=== PATIENT | male | born 1960 | race Caucasian/White ===

== ENCOUNTER 2016-08-09 05:54 | Emergency (ER) | payer MEDICARE, MEDICAID ==
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
[2016-08-09 07:39] VITALS: BP 155/91
--- NOTE | 2016-08-09 13:52 | EKG REPORT ---
SEVERITY:- ABNORMAL ECG - SINUS RHYTHM RIGHT BUNDLE BRANCH BLOCK PROBABLE LEFT VENTRICULAR HYPERTROPHY : Confirmed by: Deepak Fang 09-Aug-2016 13:51:27
== END 2016-08-09 07:39 | disposition home or self-care (01) ==
LOC: ER 05:54
DX: H92.02 Otalgia, left ear (principal); H60.312 Diffuse otitis externa, left ear; E78.00 Pure hypercholesterolemia, unspecified; E10.9 Type 1 diabetes mellitus without complications; K21.9 Gastro-esophageal reflux disease without esophagitis; Z87.820 Personal history of traumatic brain injury; Z86.718 Personal history of other venous thrombosis and embolism; I25.2 Old myocardial infarction
CPT/HCPCS: 93005; 93010; 99283

== ENCOUNTER 2016-12-26 15:06 | Emergency (ER) | payer MEDICAID, MEDICARE ==
[2016-12-26 16:19] LABS: ABSOLUTE EOSINOPHILS # (AUTO) 0.2 10^3/uL (0.0-0.6); ABSOLUTE LYMPHOCYTES (AUTO) 2.6 10^3/uL (0.5-4.7); ABSOLUTE MONOCYTES (AUTO) 0.8 10^3/uL (0.1-1.4); ABSOLUTE NEUT (AUTO) 7.7 10^3/uL (1.7-8.2); BASOPHILS % (AUTO) 0.2 % (0-2); EOSINOPHILS % (AUTO) 1.4 % (0-6); HEMATOCRIT 43.3 % (37.9-51.0); HEMOGLOBIN 15.5 g/dL (13.5-17.0); HGB HCT DIFFERENCE 3.2; LYMPHOCYTES % (AUTO) 23.1 % (13-45); MEAN CORPUSCULAR HEMOGLOBIN 30.1 pg (27.0-33.4); MEAN CORPUSCULAR HGB CONC 35.9 g/dL (32.0-36.0); MEAN CORPUSCULAR VOLUME 84 fl (80-97); MONOCYTES % (AUTO) 7.1 % (3-13); RED BLOOD COUNT 5.16 10^6/uL (4.35-5.55); RED CELL DISTRIBUTION WIDTH 13.4 % (11.5-14.0); SEGMENTED NEUTROPHILS % (AUTO) 68.2 % (42-78); WHITE BLOOD COUNT 11.2 10^3/uL (4.0-10.5)
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
[2016-12-26 16:36] LABS: APPEARANCE,URINE CLEAR; BILIRUBIN,URINE NEGATIVE (NEGATIVE); GLUCOSE, URINE >=500 mg/dL (NEGATIVE); KETONES,URINE TRACE mg/dL (NEGATIVE); LEUKOCYTE ESTERASE,URINE NEGATIVE (NEGATIVE); NITRITE,URINE NEGATIVE (NEGATIVE); PROTEIN,URINE 30 mg/dL (NEGATIVE); UROBILINOGEN,URINE NEGATIVE mg/dL (<2.0)
[2016-12-26 16:43] LABS: ALANINE AMINOTRANSFERASE 57 U/L (21-72); ALBUMIN 4.6 g/dL (3.5-5.0); ALKALINE PHOSPHATASE 108 U/L (38-126); ANION GAP 15 (5-19); ASPARTATE AMINO TRANSFERASE 29 U/L (17-59); BILIRUBIN,DIRECT 0.5 mg/dL (0.0-0.4); BLOOD UREA NITROGEN 15 mg/dL (7-20); CALCIUM 10.1 mg/dL (8.4-10.2); CARBON DIOXIDE 23 mmol/L (22-30); CHLORIDE 99 mmol/L (98-107); GLUCOSE 363 mg/dL (75-110); LIPASE 134.2 U/L (23-300); POTASSIUM 4.4 mmol/L (3.6-5.0); SODIUM 137.2 mmol/L (137-145); TOTAL PROTEIN 7.8 g/dL (6.3-8.2)
[2016-12-26 16:44] LABS: ALCOHOL < 10 mg/dL (NONE DETECTED)
[2016-12-26 16:52] LABS: URINE BARBITURATES SCREEN NEGATIVE; URINE METHADONE SCREEN NEGATIVE; URINE OPIATES LOW NEGATIVE; URINE PHENCYCLIDINE SCREEN NEGATIVE
[2016-12-26 16:54] LABS: CREATINE KINASE MB 1.06 ng/mL (<4.55)
--- NOTE | 2016-12-26 16:55 | RADIOLOGY REPORT (SQ) ---
EXAM DESCRIPTION: CHEST PA/LAT COMPLETED DATE/TIME: 12/26/2016 4:45 pm REASON FOR STUDY: Cough with epigastric pain COMPARISON: May 2015 EXAM PARAMETERS: NUMBER OF VIEWS: two views TECHNIQUE: Digital Frontal and Lateral radiographic views of the chest acquired. RADIATION DOSE: NA LIMITATIONS: none FINDINGS: LUNGS AND PLEURA: No opacities, masses or pneumothorax. No pleural effusion. MEDIASTINUM AND HILAR STRUCTURES: No masses or contour abnormalities. HEART AND VASCULAR STRUCTURES: Heart normal size. No evidence for failure. BONES: No acute findings. HARDWARE: None in the chest. OTHER: No other significant finding. IMPRESSION: NO SIGNIFICANT RADIOGRAPHIC FINDING IN THE CHEST. TECHNICAL DOCUMENTATION: JOB ID: [id number] [email or web address]- All Rights Reserved
[2016-12-26 16:56] LABS: TROPONIN I < 0.012 ng/mL
[2016-12-26 19:02] VITALS: BP 136/85
--- NOTE | 2016-12-26 19:04 | RADIOLOGY REPORT (SQ) ---
EXAM DESCRIPTION: CT ABD/PELVIS WITH IV ORAL COMPLETED DATE/TIME: 12/26/2016 6:54 pm REASON FOR STUDY: Midepigastric pain with black stools COMPARISON: 04/20/2015 TECHNIQUE: CT scan of the abdomen and pelvis performed using helical scanning technique with dynamic intravenous contrast injection. No oral contrast. Images reviewed with lung, soft tissue, and bone windows. Reconstructed coronal and sagittal MPR images reviewed. Delayed images for evaluation of the urinary system also acquired. All images stored on PACS. All CT scanners at this facility use dose modulation, iterative reconstruction, and/or weight based d osing when appropriate to reduce radiation dose to as low as reasonably achievable (ALARA). [facility]: Dose Right [facility]: CareDose [facility]: Dose Right [facility]: Teradose 4D [facility]: [employer] CONTRAST TYPE AND DOSE: contrast/concentration: Isovue 370.00 mg/ml; Total Contrast Delivered: 99.0 ml; Total Saline Delivered: 63.0 ml RENAL FUNCTION: GFR > 60. RADIATION DOSE: Up-to-date CT equipment and radiation dose reduction techniques were employed. CTDIv ol: 10.8 - 12.5 mGy. DLP: 1176 mGy-cm.. LIMITATIONS: None. FINDINGS: LOWER CHEST: No significant findings. No nodules or infiltrates. LIVER: Diffuse fatty infiltration. No focal masses. SPLEEN: Normal size. No focal lesions. PANCREAS: No masses. No significant calcifications. No adjacent inflammation or peripancreatic fluid collections. Pancreatic duct not dilated. GALLBLADDER: Gallstones. No inflammatory changes to suggest cholecystitis. ADRENAL GLANDS: No significant masses or asymmetry. RIGHT KIDNEY AND URETER: No solid masses. No significant calcifications. No hydronephrosis or hyd roureter. LEFT KIDNEY AND URETER: No solid masses. No significant calcifications. No hydronephrosis or hydr oureter. AORTA AND VESSELS: No aneurysm. No dissection. Renal arteries, SMA, celiac without stenosis. RETROPERITONEUM: No retroperitoneal adenopathy, hemorrhage or masses. BOWEL AND PERITONEAL CAVITY: No masses or inflammatory changes. No free fluid or peritoneal masses. Diverticulosis. APPENDIX: Normal. PELVIS: No mass. No free fluid. Normal bladder. ABDOMINAL WALL: No masses. No hernias. BONES: No significant or acute findings. OTHER: No other significant finding. IMPRESSION: Fatty liver. Gallstones. TECHNICAL DOCUMENTATION: JOB ID: [id number] Quality ID # [id number]: Final reports with documentation of one or more dose reduction techniques (e.g., Au tomated exposure control, adjustment of the mA and/or kV according to patient size, use of iterative reconstruction technique) 2010 [employer]- All Rights Reserved
--- NOTE | 2016-12-26 21:20 | EKG REPORT ---
SEVERITY:- ABNORMAL ECG - SINUS TACHYCARDIA RIGHT BUNDLE BRANCH BLOCK : Confirmed by: Annie Bernstein MD 26-Dec-2016 21:19:45
== END 2016-12-26 19:33 | disposition home or self-care (01) ==
LOC: ER 15:06
DX: K80.20 Calculus of gallbladder without cholecystitis without obstruction (principal); K76.0 Fatty (change of) liver, not elsewhere classified; R07.89 Other chest pain; R10.13 Epigastric pain; F17.200 Nicotine dependence, unspecified, uncomplicated; I25.2 Old myocardial infarction; I10 Essential (primary) hypertension; J44.9 Chronic obstructive pulmonary disease, unspecified; E11.9 Type 2 diabetes mellitus without complications; I45.10 Unspecified right bundle-branch block; R00.0 Tachycardia, unspecified; Z86.718 Personal history of other venous thrombosis and embolism
CPT/HCPCS: 36415; 71020; 74177; 80053; 80307; 81001; 82272; 82553; 83690; 84484; 85025; 93005; 93010; 99285

== ENCOUNTER 2017-07-25 09:50 | Emergency (ER) | payer MEDICARE, MEDICAID ==
[2017-07-25] MEDS ORDERED: KETOROLAC TROMETHAMINE INJ/PF 30 MG/1 ML SDV IM ONE (11:09)
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
--- NOTE | 2017-07-25 12:04 | RADIOLOGY REPORT (SQ) ---
EXAM DESCRIPTION: CT LUMBAR SPINE WITHOUT COMPLETED DATE/TIME: 07/25/2017 11:23 am REASON FOR STUDY: BACK PAIN RADIATING DOWN BOTH LEGS COMPARISON: None. TECHNIQUE: Axial images acquired through the lumbar spine without intravenous contrast. Images revi ewed with lung, soft tissue and bone windows. Reconstructed coronal and sagittal MPR images reviewe d. All images stored on PACS. All CT scanners at this facility use dose modulation, iterative reconstruction, and/or weight based d osing when appropriate to reduce radiation dose to as low as reasonably achievable (ALARA). [facility]: Dose Right [facility]: CareDose [facility]: Dose Right [facility]: Teradose 4D [facility]: [employer] RADIATION DOSE: 15.55 mGy mGy. LIMITATIONS: None. FINDINGS: SEGMENTATION: Normal. No transitional anatomy. ALIGNMENT: Grade 1 anterolisthesis of L4 on L5 which appears to be due to degenerative changes involv ing the facet joints. VERTEBRAL BODIES: No fractures. No dislocation. No acute findings. DISCS: Mild disc space loss at L1-2, L4-5 and L5-S1. L1-L2: No significant protrusions. No significant stenosis or foraminal narrowing. L2-L3: No significant protrusions. No significant stenosis or foraminal narrowing. L3-L4: Mild generalized disc bulging and mild degenerative changes involving facet joints. No signif icant protrusions. No significant stenosis. L4-L5: Small broad-based disc extrusion. Severe degenerative changes involving the facet joints with ligamentous and facet hypertrophy. Mild spinal stenosis. Mild lateral recess stenosis bilaterally. Mild right neural foraminal narrowing. L5-S1: Mild generalized disc bulging with small left paracentral disc extrusion which probably imping es on the left S1 nerve root. Severe degenerative changes involving the left facet joint with mild c hanges on the right. LOWER THORACIC SPINE: Severe disc space loss at T10-T11 and T11-T12 with mild disc space loss at T12 -L1. No spinal stenosis or foraminal narrowing. PEDICLES, TRANSVERSE PROCESSES: No fractures. No dislocation. No acute findings. FACETS, POSTERIOR ELEMENTS: Degenerative changes as described above. HARDWARE: None in the spine. VISUALIZED RIBS: No fractures. SOFT TISSUES: No significant or acute finding in adjacent soft tissues. OTHER: No other significant finding. IMPRESSION: 1. Small left paracentral disc extrusion at L5-S1 which probably impinges on the left S 1 nerve root. 2. Mild spinal stenosis, mild lateral recess stenosis and mild right neural foraminal narrowing at L 4-5 related to grade 1 anterolisthesis and disc extrusion with ligamentous and facet hypertrophy. TECHNICAL DOCUMENTATION: JOB ID: [id number] Quality ID # [id number]: Final reports with documentation of one or more dose reduction techniques (e.g., Au tomated exposure control, adjustment of the mA and/or kV according to patient size, use of iterative reconstruction technique) 2010 [employer]- All Rights Reserved Reading location - IP/workstation name: [email or web address]
[2017-07-25 12:31] VITALS: BP 179/85
== END 2017-07-25 12:30 | disposition home or self-care (01) ==
LOC: ER 09:50
DX: M54.16 Radiculopathy, lumbar region (principal); M79.604 Pain in right leg; M79.605 Pain in left leg; M54.9 Dorsalgia, unspecified; M54.5 Low back pain; G89.29 Other chronic pain; F17.200 Nicotine dependence, unspecified, uncomplicated; I10 Essential (primary) hypertension; J44.9 Chronic obstructive pulmonary disease, unspecified; E11.9 Type 2 diabetes mellitus without complications
CPT/HCPCS: 99283; 96372; 72131; J1885

== ENCOUNTER 2017-10-24 14:53 | Emergency (ER) | payer MEDICARE, MEDICAID ==
[2017-10-24 15:04] VITALS: BP 150/86
== END 2017-10-24 15:52 | disposition left against medical advice (07) ==
LOC: ER 14:53
DX: Z53.21 Procedure and treatment not carried out due to patient leaving prior to being seen by health care provider (principal)

== ENCOUNTER 2017-11-08 16:17 | Emergency (ER) | payer MEDICARE, MEDICAID ==
[2017-11-08] MEDS ORDERED: ASPIRIN 325 MG TABLET PO ONE (17:13)
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
[2017-11-08 18:00] LABS: ABSOLUTE BASOPHILS # (AUTO) 0.1 10^3/uL (0.0-0.2); ABSOLUTE EOSINOPHILS # (AUTO) 0.3 10^3/uL (0.0-0.6); ABSOLUTE LYMPHOCYTES (AUTO) 2.1 10^3/uL (0.5-4.7); ABSOLUTE MONOCYTES (AUTO) 0.8 10^3/uL (0.1-1.4); ABSOLUTE NEUT (AUTO) 8.7 10^3/uL (1.7-8.2); BASOPHILS % (AUTO) 1.1 % (0-2); EOSINOPHILS % (AUTO) 2.9 % (0-6); HEMATOCRIT 43.4 % (37.9-51.0); HEMOGLOBIN 15.3 g/dL (13.5-17.0); MEAN CORPUSCULAR HEMOGLOBIN 30.8 pg (27.0-33.4); MEAN CORPUSCULAR HGB CONC 35.1 g/dL (32.0-36.0); MEAN CORPUSCULAR VOLUME 88 fl (80-97); PLATELET COUNT 180 10^3/uL (150-450); RED BLOOD COUNT 4.95 10^6/uL (4.35-5.55); RED CELL DISTRIBUTION WIDTH 13.7 % (11.5-14.0); TOTAL CELLS COUNTED % (AUTO) 100 %; WHITE BLOOD COUNT 12.1 10^3/uL (4.0-10.5)
--- NOTE | 2017-11-08 18:09 | RADIOLOGY REPORT (SQ) ---
EXAM DESCRIPTION: CHEST 2 VIEWS COMPLETED DATE/TIME: 11/08/2017 5:59 pm REASON FOR STUDY: cp COMPARISON: 12/26/2016 EXAM PARAMETERS: NUMBER OF VIEWS: two views TECHNIQUE: Digital Frontal and Lateral radiographic views of the chest acquired. RADIATION DOSE: NA LIMITATIONS: none FINDINGS: LUNGS AND PLEURA: No acute opacities, masses or pneumothorax. No pleural effusion. MEDIASTINUM AND HILAR STRUCTURES: No masses or contour abnormalities. HEART AND VASCULAR STRUCTURES: Heart normal size. No evidence for failure. BONES: No acute findings. HARDWARE: None in the chest. OTHER: No other significant finding. IMPRESSION: NO ACUTE RADIOGRAPHIC FINDING IN THE CHEST. TECHNICAL DOCUMENTATION: JOB ID: [id number] [place]-72 2010 [employer]- All Rights Reserved Reading location - IP/workstation name: [email or web address]
[2017-11-08 18:29] LABS: ALANINE AMINOTRANSFERASE 24 U/L (21-72); ALBUMIN 4.7 g/dL (3.5-5.0); ALKALINE PHOSPHATASE 55 U/L (38-126); ANION GAP 16 (5-19); ASPARTATE AMINO TRANSFERASE 24 U/L (17-59); BILIRUBIN,DIRECT 0.3 mg/dL (0.0-0.4); BLOOD UREA NITROGEN 13 mg/dL (7-20); CALCIUM 10.1 mg/dL (8.4-10.2); CARBON DIOXIDE 24 mmol/L (22-30); CHLORIDE 105 mmol/L (98-107); CREATINE KINASE 55 U/L (55-170); GLUCOSE 123 mg/dL (75-110); POTASSIUM 4.4 mmol/L (3.6-5.0); SODIUM 144.5 mmol/L (137-145)
[2017-11-08 18:38] LABS: CREATINE KINASE MB 0.48 ng/mL (<4.55)
[2017-11-08 18:45] LABS: TROPONIN I < 0.012 ng/mL
[2017-11-08] MEDS ORDERED: METOCLOPRAMIDE HCL ORAL SOLN 10 MG/10 ML UDCUP PO ONE (20:51)
[2017-11-08] MEDS ORDERED: KETOROLAC TROMETHAMINE 60 MG/2 ML SDV IM ONE (20:51)
[2017-11-08] MEDS ORDERED: LIDOCAINE 5% (700 MG) TRANSDERMAL ADH..PATCH TP ONE (20:51)
[2017-11-08] MEDS ORDERED: LIDOCAINE 2% VISCOUS SOLN 20 ML UDCUP PO ONE (20:51)
[2017-11-08] MEDS ORDERED: MAG HYDROX/AL HYDROX/SIMETH SUSP 30 ML UDCUP PO ONE (20:51)
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
[2017-11-08 22:51] VITALS: BP 111/63
--- NOTE | 2017-11-09 00:07 | EKG REPORT ---
SEVERITY:- ABNORMAL ECG - SINUS RHYTHM RIGHT BUNDLE BRANCH BLOCK : Confirmed by: Annie Bernstein MD 09-Nov-2017 00:06:35
== END 2017-11-08 22:48 | disposition home or self-care (01) ==
LOC: ER 16:17
DX: R07.81 Pleurodynia (principal); I10 Essential (primary) hypertension; R19.7 Diarrhea, unspecified; R11.2 Nausea with vomiting, unspecified; J44.9 Chronic obstructive pulmonary disease, unspecified; F17.200 Nicotine dependence, unspecified, uncomplicated; R06.02 Shortness of breath; I45.10 Unspecified right bundle-branch block; Z86.718 Personal history of other venous thrombosis and embolism; Z88.8 Allergy status to other drugs, medicaments and biological substances
CPT/HCPCS: 93005; 99285; 96372; 36415; 82553; 82550; 85025; 80053; 84484; 85379; 71046; 93010; A9270 ×2; J1885; J3490

== ENCOUNTER 2017-12-14 20:03 | Emergency (ER) | payer MEDICARE, MEDICAID ==
[2017-12-14] MEDS ORDERED: IBUPROFEN 600 MG TABLET PO ONE (21:15)
[2017-12-14] MEDS ORDERED: CIPROFLOXACIN HCL/DEXAMETH OTIC DROP 7.5 ML AD ONE (21:15)
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
[2017-12-14 22:34] VITALS: BP 169/78
== END 2017-12-14 22:32 | disposition home or self-care (01) ==
LOC: ER 20:03
DX: H92.01 Otalgia, right ear (principal); F17.200 Nicotine dependence, unspecified, uncomplicated; I10 Essential (primary) hypertension; J44.9 Chronic obstructive pulmonary disease, unspecified; E11.9 Type 2 diabetes mellitus without complications
CPT/HCPCS: 99282; A9270; J3490

== ENCOUNTER 2017-12-28 20:19 | Emergency (ER) | payer MEDICARE, MEDICAID ==
[2017-12-28 21:38] LABS: ABSOLUTE BASOPHILS # (AUTO) 0.1 10^3/uL (0.0-0.2); ABSOLUTE EOSINOPHILS # (AUTO) 0.2 10^3/uL (0.0-0.6); ABSOLUTE LYMPHOCYTES (AUTO) 2.1 10^3/uL (0.5-4.7); ABSOLUTE MONOCYTES (AUTO) 0.7 10^3/uL (0.1-1.4); ABSOLUTE NEUT (AUTO) 7.6 10^3/uL (1.7-8.2); BASOPHILS % (AUTO) 0.8 % (0-2); EOSINOPHILS % (AUTO) 2.2 % (0-6); HEMATOCRIT 43.2 % (37.9-51.0); HEMOGLOBIN 15.4 g/dL (13.5-17.0); LYMPHOCYTES % (AUTO) 19.5 % (13-45); MEAN CORPUSCULAR HEMOGLOBIN 30.9 pg (27.0-33.4); MEAN CORPUSCULAR HGB CONC 35.7 g/dL (32.0-36.0); MEAN CORPUSCULAR VOLUME 87 fl (80-97); MONOCYTES % (AUTO) 6.7 % (3-13); PLATELET COUNT 167 10^3/uL (150-450); RED BLOOD COUNT 4.99 10^6/uL (4.35-5.55); RED CELL DISTRIBUTION WIDTH 13.3 % (11.5-14.0); SEGMENTED NEUTROPHILS % (AUTO) 70.8 % (42-78); TOTAL CELLS COUNTED % (AUTO) 100 %; WHITE BLOOD COUNT 10.8 10^3/uL (4.0-10.5)
[2017-12-28 21:43] LABS: ALANINE AMINOTRANSFERASE 31 U/L (21-72); ALBUMIN 4.5 g/dL (3.5-5.0); ALKALINE PHOSPHATASE 55 U/L (38-126); ANION GAP 12 (5-19); ASPARTATE AMINO TRANSFERASE 31 U/L (17-59); BILIRUBIN,DIRECT 0.6 mg/dL (0.0-0.4); BILIRUBIN,TOTAL 1.4 mg/dL (0.2-1.3); BLOOD UREA NITROGEN 18 mg/dL (7-20); CALCIUM 9.8 mg/dL (8.4-10.2); CARBON DIOXIDE 26 mmol/L (22-30); CHLORIDE 101 mmol/L (98-107); GLUCOSE 179 mg/dL (75-110); LIPASE 105.7 U/L (23-300); POTASSIUM 4.7 mmol/L (3.6-5.0); SODIUM 138.8 mmol/L (137-145); TOTAL PROTEIN 7.8 g/dL (6.3-8.2)
[2017-12-28] MEDS ORDERED: FAMOTIDINE 20 MG TABLET PO ONE (22:40)
[2017-12-28] MEDS ORDERED: METOCLOPRAMIDE HCL ORAL SOLN 10 MG/10 ML UDCUP PO ONE (22:40)
[2017-12-28] MEDS ORDERED: MAG HYDROX/AL HYDROX/SIMETH SUSP 30 ML UDCUP PO ONE (22:40)
[2017-12-28] MEDS ORDERED: LIDOCAINE 2% VISCOUS SOLN 20 ML UDCUP PO ONE (22:40)
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
--- NOTE | 2017-12-28 22:54 | RADIOLOGY REPORT (SQ) ---
US ABDOMEN LIMITED HISTORY: Upper abdominal pain. COMPARISON: None. TECHNIQUE: Grayscale and color Doppler imaging of the right upper quadrant was performed. FINDINGS: The liver measures 18 cm. Normal liver echogenicity. Status post cholecystectomy. Common bile duct measures 3 mm. No intrahepatic biliary ductal dilatation. The pancreas is not visualized due to overlying bowel gas. Right kidney measures 10 cm in length, without hydronephrosis. Visualized portions of the IVC and aorta are patent. IMPRESSION: Status post cholecystectomy. Mild hepatomegaly.
[2017-12-28 23:05] VITALS: BP 131/82
== END 2017-12-28 23:17 | disposition home or self-care (01) ==
LOC: ER 20:19
DX: K29.00 Acute gastritis without bleeding (principal); T47.1X6A Underdosing of other antacids and anti-gastric-secretion drugs, initial encounter; Z91.128 Patient's intentional underdosing of medication regimen for other reason; Z91.14 Patient's other noncompliance with medication regimen; R10.13 Epigastric pain; I10 Essential (primary) hypertension; E11.9 Type 2 diabetes mellitus without complications; J44.9 Chronic obstructive pulmonary disease, unspecified; F17.210 Nicotine dependence, cigarettes, uncomplicated; Z71.6 Tobacco abuse counseling; Z88.8 Allergy status to other drugs, medicaments and biological substances; Z90.49 Acquired absence of other specified parts of digestive tract; Z87.19 Personal history of other diseases of the digestive system
CPT/HCPCS: 99406; 99284; 36415; 83690; 85025; 80053; 76705; A9270 ×2; J3490

== ENCOUNTER 2018-02-20 22:46 | Emergency (ER) | payer MEDICARE, MEDICAID ==
[2018-02-20] MEDS ORDERED: NORMAL SALINE 1000 ML 500 ML IV ONE (22:57)
[2018-02-20] MEDS ORDERED: ONDANSETRON HCL INJ/PF 4 MG/2 ML SDV IV ONE (23:00)
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
[2018-02-20 23:07] LABS: VENOUS BLOOD BASE EXCESS 5.8 mmol/L; VENOUS BLOOD HCO3 30.8 mmol/L (20-32); VENOUS BLOOD PCO2 45.6 mmHg (35-63); VENOUS BLOOD PH 7.45 (7.30-7.42)
[2018-02-20 23:20] LABS: ALANINE AMINOTRANSFERASE 34 U/L (21-72); ALBUMIN 4.4 g/dL (3.5-5.0); ALKALINE PHOSPHATASE 65 U/L (38-126); ANION GAP 11 (5-19); ASPARTATE AMINO TRANSFERASE 25 U/L (17-59); BILIRUBIN,DIRECT 0.2 mg/dL (0.0-0.4); BILIRUBIN,TOTAL 0.6 mg/dL (0.2-1.3); BLOOD UREA NITROGEN 19 mg/dL (7-20); CALCIUM 10.3 mg/dL (8.4-10.2); CARBON DIOXIDE 32 mmol/L (22-30); CHLORIDE 99 mmol/L (98-107); GLUCOSE 232 mg/dL (75-110); LIPASE 161.7 U/L (23-300); POTASSIUM 4.7 mmol/L (3.6-5.0); SODIUM 141.7 mmol/L (137-145); TOTAL PROTEIN 7.4 g/dL (6.3-8.2)
[2018-02-20 23:26] LABS: ABSOLUTE BASOPHILS # (AUTO) 0.1 10^3/uL (0.0-0.2); ABSOLUTE EOSINOPHILS # (AUTO) 0.3 10^3/uL (0.0-0.6); ABSOLUTE LYMPHOCYTES (AUTO) 3.2 10^3/uL (0.5-4.7); ABSOLUTE MONOCYTES (AUTO) 0.9 10^3/uL (0.1-1.4); ABSOLUTE NEUT (AUTO) 7.1 10^3/uL (1.7-8.2); BASOPHILS % (AUTO) 0.9 % (0-2); EOSINOPHILS % (AUTO) 2.2 % (0-6); HEMATOCRIT 41.2 % (37.9-51.0); HEMOGLOBIN 14.6 g/dL (13.5-17.0); LYMPHOCYTES % (AUTO) 27.6 % (13-45); MEAN CORPUSCULAR HEMOGLOBIN 30.5 pg (27.0-33.4); MEAN CORPUSCULAR HGB CONC 35.6 g/dL (32.0-36.0); MEAN CORPUSCULAR VOLUME 86 fl (80-97); MONOCYTES % (AUTO) 7.6 % (3-13); PLATELET COUNT 186 10^3/uL (150-450); RED BLOOD COUNT 4.81 10^6/uL (4.35-5.55); RED CELL DISTRIBUTION WIDTH 13.3 % (11.5-14.0); SEGMENTED NEUTROPHILS % (AUTO) 61.7 % (42-78); TOTAL CELLS COUNTED % (AUTO) 100 %; WHITE BLOOD COUNT 11.4 10^3/uL (4.0-10.5)
--- NOTE | 2018-02-20 23:47 | RADIOLOGY REPORT (SQ) ---
XR CHEST 1 VIEW HISTORY: Chest pain. Vomiting. COMPARISON: 12/26/2016 FINDINGS: Cardiomediastinal silhouette is unremarkable. The lungs are clear. No pleural effusion or pneumothorax is identified. No acute osseous findings. IMPRESSION: No acute cardiopulmonary abnormality.
[2018-02-21] MEDS ORDERED: FAMOTIDINE 20 MG TABLET PO ONE
[2018-02-21] MEDS ORDERED: PROMETHAZINE HCL 25 MG TABLET PO ONE
[2018-02-21] MEDS ORDERED: SUCRALFATE 1 GM TABLET PO ONE
[2018-02-21] MEDS ORDERED: HYDROCODONE/ACETAMINOPHEN 5-325 MG TABLET PO ONE (00:05)
[2018-02-21] MEDS ORDERED: NORMAL SALINE 1000 ML 500 ML IV ONE (00:46)
[2018-02-21 01:50] LABS: AMORPHOUS SEDIMENT,URINE TRACE /HPF; APPEARANCE,URINE CLOUDY; BILIRUBIN,URINE NEGATIVE (NEGATIVE); COLOR,URINE YELLOW; GLUCOSE, URINE >=500 mg/dL (NEGATIVE); KETONES,URINE TRACE mg/dL (NEGATIVE); LEUKOCYTE ESTERASE,URINE NEGATIVE (NEGATIVE); NITRITE,URINE NEGATIVE (NEGATIVE); PROTEIN,URINE NEGATIVE (NEGATIVE); URINE SPECIFIC GRAVITY 1.013; UROBILINOGEN,URINE NEGATIVE mg/dL (<2.0)
[2018-02-21] MEDS ORDERED: MORPHINE SULFATE 10 MG/ML INJ IV ONE (01:55)
[2018-02-21] MEDS ORDERED: DIAZEPAM 5 MG TABLET PO ONE (03:50)
[2018-02-21 05:10] VITALS: BP 124/83
--- NOTE | 2018-02-21 19:17 | EKG REPORT ---
SEVERITY:- ABNORMAL ECG - SINUS TACHYCARDIA RIGHT BUNDLE BRANCH BLOCK : Confirmed by: Annie Bernstein MD 21-Feb-2018 19:16:35
--- NOTE | 2018-02-21 19:17 | EKG REPORT ---
SEVERITY:- ABNORMAL ECG - SINUS RHYTHM RIGHT BUNDLE BRANCH BLOCK LEFT VENTRICULAR HYPERTROPHY : Confirmed by: Annie Bernstein MD 21-Feb-2018 19:16:31
== END 2018-02-21 05:09 | disposition home or self-care (01) ==
LOC: ER 22:46
DX: R10.12 Left upper quadrant pain (principal); E86.0 Dehydration; I10 Essential (primary) hypertension; I45.10 Unspecified right bundle-branch block; J44.9 Chronic obstructive pulmonary disease, unspecified; R06.02 Shortness of breath; R05 Cough; R00.0 Tachycardia, unspecified; R51 Headache; R68.83 Chills (without fever); R11.2 Nausea with vomiting, unspecified; F17.200 Nicotine dependence, unspecified, uncomplicated; E11.9 Type 2 diabetes mellitus without complications; Z79.4 Long term (current) use of insulin; Z88.8 Allergy status to other drugs, medicaments and biological substances
CPT/HCPCS: 93005; 99285; 96361; 96374; 96375; 36415; 83690; 85025; 80053; 81001; 84484; 82803; 71045; 93010; A9270 ×5; J2270; J2405; J7030 ×2

== ENCOUNTER 2018-03-04 12:36 | Emergency (ER) | payer MEDICARE, MEDICAID ==
[2018-03-04] MEDS ORDERED: CIPROFLOXACIN HCL/DEXAMETH OTIC DROP 7.5 ML AS ONE (14:32)
[2018-03-04] MEDS ORDERED: ACETAMINOPHEN 325 MG TABLET PO ONE (14:33)
[2018-03-04] MEDS ORDERED: KETOROLAC TROMETHAMINE 60 MG/2 ML SDV IM ONE (14:35)
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
[2018-03-04 15:47] VITALS: BP 140/88
== END 2018-03-04 15:46 | disposition home or self-care (01) ==
LOC: ER 12:36
DX: H60.502 Unspecified acute noninfective otitis externa, left ear (principal); H92.02 Otalgia, left ear; K04.7 Periapical abscess without sinus; R51 Headache; I10 Essential (primary) hypertension; E11.9 Type 2 diabetes mellitus without complications; J44.9 Chronic obstructive pulmonary disease, unspecified; F17.200 Nicotine dependence, unspecified, uncomplicated
CPT/HCPCS: 99282; A9270; J1885; J3490

== ENCOUNTER 2018-04-26 13:32 | Emergency (ER) | payer MEDICARE, MEDICAID ==
[2018-04-26] MEDS ORDERED: ACETAMINOPHEN 325 MG TABLET PO ONE (14:00)
[2018-04-26] MEDS ORDERED: DIPH/PERTUSS(ACELL)/TETANUS VAC/PF 0.5 ML SYR (>=10YO) IM ONE (14:00)
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
--- NOTE | 2018-04-26 14:48 | RADIOLOGY REPORT (SQ) ---
EXAM DESCRIPTION: CT HEAD WITHOUT COMPLETED DATE/TIME: 04/26/2018 2:38 pm REASON FOR STUDY: head injury, CEE COMPARISON: CT brain 10/11/2010, 07/15/2008, 05/24/2007 CT facial bones same day TECHNIQUE: Axial images acquired through the brain without intravenous contrast. Images reviewed wi th bone, brain and subdural windows. Additional sagittal and coronal reconstructions were generated. Images stored on PACS. All CT scanners at this facility use dose modulation, iterative reconstruction, and/or weight based d osing when appropriate to reduce radiation dose to as low as reasonably achievable (ALARA). [facility]: Dose Right [facility]: CareDose [facility]: Dose Right [facility]: Teradose 4D [facility]: [employer] RADIATION DOSE: CT Rad equipment meets quality standard of care and radiation dose reduction techniq ues were employed. CTDIvol: 53.2 mGy. DLP: 1044 mGy-cm. mGy. LIMITATIONS: None. FINDINGS: VENTRICLES: Normal size and contour. CEREBRUM: No masses. No hemorrhage. No midline shift. No evidence for acute infarction. Normal gra y/white matter differentiation. No areas of low density in the white matter. CEREBELLUM: No masses. No hemorrhage. No alteration of density. No evidence for acute infarction. EXTRAAXIAL SPACES: No fluid collections. No masses. ORBITS AND GLOBE: Acute left lateral orbital wall and orbital floor fracture with fluid in the left m axillary sinus. CALVARIUM: No fracture. PARANASAL SINUSES: No fluid or mucosal thickening. SOFT TISSUES: No mass or hematoma. OTHER: No other significant finding. IMPRESSION: No acute intracranial changes. Left-sided orbital floor and lateral orbital rim nondisplaced fractures. EVIDENCE OF ACUTE STROKE: NO. COMMENT: Quality ID # [id number]: Final reports with documentation of one or more dose reduction techniques (e.g., Automated exposure control, adjustment of the mA and/or kV according to patient size, use of iterative reconstruction technique) TECHNICAL DOCUMENTATION: JOB ID: [id number] [employer]- All Rights Reserved Reading location - IP/workstation name: [email or web address]
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
[2018-04-26] MEDS ORDERED: OXYCODONE HCL IR 5 MG TABLET PO ONE (14:53)
--- NOTE | 2018-04-26 14:54 | RADIOLOGY REPORT (SQ) ---
EXAM DESCRIPTION: CT CERVICAL SPINE WITHOUT COMPLETED DATE/TIME: 04/26/2018 2:38 pm REASON FOR STUDY: head injury, CEE COMPARISON: CT brain, CT facial bones same date TECHNIQUE: Axial images acquired through the cervical spine without intravenous contrast. Images re viewed with lung, soft tissue and bone windows. Reconstructed coronal and sagittal MPR images review ed. Images stored on PACS. All CT scanners at this facility use dose modulation, iterative reconstruction, and/or weight based d osing when appropriate to reduce radiation dose to as low as reasonably achievable (ALARA). [facility]: Dose Right [facility]: CareDose [facility]: Dose Right [facility]: Teradose 4D [facility]: [employer] RADIATION DOSE: CT Rad equipment meets quality standard of care and radiation dose reduction techniq ues were employed. CTDIvol: 18.2 mGy. DLP: 392 mGy-cm. mGy. LIMITATIONS: None. FINDINGS: ALIGNMENT: Anatomic. MINERALIZATION: Normal. VERTEBRAL BODIES: No fractures or dislocation. DISCS: Disc space loss of height throughout the cervical spine. No central stenosis. Mild to moderate bilateral foraminal narrowing at C3-4, C4-5, moderate to high-grade bilateral C5-6, moderate bilateral C6-7 foraminal narrowing. FACETS, LATERAL MASSES, POSTERIOR ELEMENTS: No fractures. No dislocation. No acute findings. HARDWARE: None in the spine. VISUALIZED RIBS: No fractures. LUNG APICES AND SOFT TISSUES: No significant or acute findings. OTHER: No other significant finding. IMPRESSION: No acute fracture or malalignment. TECHNICAL DOCUMENTATION: JOB ID: [id number] Quality ID # [id number]: Final reports with documentation of one or more dose reduction techniques (e.g., Au tomated exposure control, adjustment of the mA and/or kV according to patient size, use of iterative reconstruction technique) 2010 [employer]- All Rights Reserved Reading location - IP/workstation name: [email or web address]
[2018-04-26] MEDS ORDERED: AMOXICILLIN TRIHYDRATE 500 MG CAPSULE PO ONE (15:24)
[2018-04-26 15:49] VITALS: BP 136/92
== END 2018-04-26 15:49 | disposition home or self-care (01) ==
LOC: ER 13:32
DX: S02.40DA Maxillary fracture, left side, initial encounter for closed fracture (principal); S02.32XA Fracture of orbital floor, left side, initial encounter for closed fracture; W20.8XXA Other cause of strike by thrown, projected or falling object, initial encounter; Y93.H3 Activity, building and construction; R51 Headache; R11.0 Nausea; I10 Essential (primary) hypertension; J44.9 Chronic obstructive pulmonary disease, unspecified; E11.9 Type 2 diabetes mellitus without complications; F17.200 Nicotine dependence, unspecified, uncomplicated
CPT/HCPCS: 99284; 90471; 70450; 70486; 72125; 90715; A9270 ×3

== ENCOUNTER → 2018-05-19 | Outpatient (CLI) | payer MEDICARE, MEDICAID ==
[2018-05-20 15:42] LABS: ABSOLUTE BASOPHILS # (AUTO) 0.1 10^3/uL (0.0-0.2); ABSOLUTE EOSINOPHILS # (AUTO) 0.2 10^3/uL (0.0-0.6); ABSOLUTE LYMPHOCYTES (AUTO) 2.1 10^3/uL (0.5-4.7); ABSOLUTE MONOCYTES (AUTO) 0.7 10^3/uL (0.1-1.4); ABSOLUTE NEUT (AUTO) 8.4 10^3/uL (1.7-8.2); BASOPHILS % (AUTO) 0.7 % (0-2); EOSINOPHILS % (AUTO) 1.5 % (0-6); HEMATOCRIT 45.2 % (37.9-51.0); HEMOGLOBIN 15.8 g/dL (13.5-17.0); LYMPHOCYTES % (AUTO) 18.3 % (13-45); MEAN CORPUSCULAR HEMOGLOBIN 30.5 pg (27.0-33.4); MEAN CORPUSCULAR VOLUME 87 fl (80-97); MONOCYTES % (AUTO) 6.2 % (3-13); PLATELET COUNT 186 10^3/uL (150-450); RED BLOOD COUNT 5.18 10^6/uL (4.35-5.55); RED CELL DISTRIBUTION WIDTH 13.5 % (11.5-14.0); SEGMENTED NEUTROPHILS % (AUTO) 73.3 % (42-78); TOTAL CELLS COUNTED % (AUTO) 100 %; WHITE BLOOD COUNT 11.5 10^3/uL (4.0-10.5)
[2018-05-20 16:21] LABS: ERYTHROCYTE SEDIMENTATION RATE 17 mm/hr (0-20)
== END ==
LOC: OD 11:35
PROVIDERS: ATTEND Ophthalmology
DX: R51 Headache (principal)
CPT/HCPCS: 36415; 85025; 85652; 86140

== ENCOUNTER 2018-05-21 14:29 | Emergency (ER) | payer MEDICARE, MEDICAID ==
[2018-05-21] MEDS ORDERED: METOCLOPRAMIDE HCL INJ/PF 10 MG/2 ML SDV IV ONE (16:29)
[2018-05-21] MEDS ORDERED: DIPHENHYDRAMINE HCL 50 MG/ML VIAL IV ONE (16:29)
[2018-05-21] MEDS ORDERED: NORMAL SALINE 1000 ML 1,000 ML IV ONE (16:29)
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
[2018-05-21] MEDS ORDERED: HYDROCODONE/ACETAMINOPHEN 5-325 MG TABLET PO ONE (18:22)
--- NOTE | 2018-05-21 18:56 | RADIOLOGY REPORT (SQ) ---
EXAM DESCRIPTION: CHEST 2 VIEWS COMPLETED DATE/TIME: 05/21/2018 6:43 pm REASON FOR STUDY: cough COMPARISON: 02/20/2018 EXAM PARAMETERS: NUMBER OF VIEWS: two views TECHNIQUE: Digital Frontal and Lateral radiographic views of the chest acquired. RADIATION DOSE: NA LIMITATIONS: none FINDINGS: LUNGS AND PLEURA: No opacities, masses or pneumothorax. No pleural effusion. MEDIASTINUM AND HILAR STRUCTURES: No masses or contour abnormalities. HEART AND VASCULAR STRUCTURES: Heart normal size. No evidence for failure. BONES: No acute findings. HARDWARE: None in the chest. OTHER: No other significant finding. IMPRESSION: NO ACUTE RADIOGRAPHIC FINDING IN THE CHEST. TECHNICAL DOCUMENTATION: JOB ID: [id number] [employer]- All Rights Reserved Reading location - IP/workstation name: [email or web address]
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
[2018-05-21 20:13] VITALS: BP 149/85
== END 2018-05-21 20:13 | disposition home or self-care (01) ==
LOC: ER 14:29
DX: S02.40DD Maxillary fracture, left side, subsequent encounter for fracture with routine healing (principal); S02.32XD Fracture of orbital floor, left side, subsequent encounter for fracture with routine healing; Y00.XXXD Assault by blunt object, subsequent encounter; R51 Headache; R11.0 Nausea; J34.89 Other specified disorders of nose and nasal sinuses; M79.10 Myalgia, unspecified site; R05 Cough; I10 Essential (primary) hypertension; J44.9 Chronic obstructive pulmonary disease, unspecified; E11.9 Type 2 diabetes mellitus without complications; F17.200 Nicotine dependence, unspecified, uncomplicated; Z88.8 Allergy status to other drugs, medicaments and biological substances
CPT/HCPCS: 99284; 96361; 96374; 96375; 71046; J1200; J2765; J7030; A9270

== ENCOUNTER 2018-08-12 09:39 | Emergency (ER) | payer MEDICARE, MEDICAID ==
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
--- NOTE | 2018-08-12 10:31 | RADIOLOGY REPORT (SQ) ---
EXAM DESCRIPTION: HAND LEFT 3 VIEWS COMPLETED DATE/TIME: 08/12/2018 10:15 am REASON FOR STUDY: Pain swelling middle finger hand pain COMPARISON: None. EXAM PARAMETERS: NUMBER OF VIEWS: Three views. TECHNIQUE: AP, lateral and oblique radiographic images acquired of the left hand. LIMITATIONS: None. FINDINGS: MINERALIZATION: Normal. BONES: No acute fracture or dislocation. No worrisome bone lesions. JOINTS: Intact. SOFT TISSUES: Swelling distal 3rd phalanx. No foreign body. OTHER: No other significant finding. IMPRESSION: Soft tissue injury. TECHNICAL DOCUMENTATION: JOB ID: [id number] [employer]- All Rights Reserved Reading location - IP/workstation name: [email or web address]
[2018-08-12] MEDS ORDERED: LIDOCAINE 1% INJ-PF (10 MG/ML) 30 ML SDV ONE (13:58)
[2018-08-12] MEDS ORDERED: LIDOCAINE 1% INJ-PF (10 MG/ML) 30 ML SDV INJ ONE (13:58)
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
[2018-08-12 14:54] VITALS: BP 145/83
== END 2018-08-12 14:54 | disposition home or self-care (01) ==
LOC: ER 09:39
DX: L03.012 Cellulitis of left finger (principal); M79.642 Pain in left hand; F17.200 Nicotine dependence, unspecified, uncomplicated; E78.00 Pure hypercholesterolemia, unspecified; I10 Essential (primary) hypertension; E11.9 Type 2 diabetes mellitus without complications; Z90.49 Acquired absence of other specified parts of digestive tract; Z86.718 Personal history of other venous thrombosis and embolism; I25.2 Old myocardial infarction
CPT/HCPCS: 87070; 87077; 87186; 87205; 99283

== ENCOUNTER 2018-12-22 21:04 | Observation (INO) | payer MEDICARE, MEDICAID ==
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
--- NOTE | 2018-12-22 22:28 | EKG REPORT ---
SEVERITY:- ABNORMAL ECG - SINUS RHYTHM PROBABLE LEFT ATRIAL ABNORMALITY RIGHT BUNDLE BRANCH BLOCK : Confirmed by: Deepak Fang 22-Dec-2018 22:27:33
[2018-12-22 23:04] LABS: ABSOLUTE BASOPHILS # (AUTO) 0.1 10^3/uL (0.0-0.2); ABSOLUTE EOSINOPHILS # (AUTO) 0.2 10^3/uL (0.0-0.6); ABSOLUTE LYMPHOCYTES (AUTO) 2.4 10^3/uL (0.5-4.7); ABSOLUTE MONOCYTES (AUTO) 0.9 10^3/uL (0.1-1.4); BASOPHILS % (AUTO) 1.1 % (0-2); EOSINOPHILS % (AUTO) 1.8 % (0-6); HEMATOCRIT 37.9 % (37.9-51.0); HEMOGLOBIN 13.9 g/dL (13.5-17.0); LYMPHOCYTES % (AUTO) 25.2 % (13-45); MEAN CORPUSCULAR HEMOGLOBIN 31.2 pg (27.0-33.4); MEAN CORPUSCULAR HGB CONC 36.5 g/dL (32.0-36.0); MEAN CORPUSCULAR VOLUME 86 fl (80-97); PLATELET COUNT 166 10^3/uL (150-450); RED BLOOD COUNT 4.44 10^6/uL (4.35-5.55); RED CELL DISTRIBUTION WIDTH 13.2 % (11.5-14.0); SEGMENTED NEUTROPHILS % (AUTO) 62.9 % (42-78); TOTAL CELLS COUNTED % (AUTO) 100 %; WHITE BLOOD COUNT 9.5 10^3/uL (4.0-10.5)
[2018-12-22 23:20] LABS: ALBUMIN 4.2 g/dL (3.5-5.0); ALKALINE PHOSPHATASE 71 U/L (38-126); ANION GAP 11 (5-19); ASPARTATE AMINO TRANSFERASE 28 U/L (17-59); BILIRUBIN,DIRECT 0.2 mg/dL (0.0-0.4); BILIRUBIN,TOTAL 0.8 mg/dL (0.2-1.3); BLOOD UREA NITROGEN 17 mg/dL (7-20); CALCIUM 10.2 mg/dL (8.4-10.2); CARBON DIOXIDE 26 mmol/L (22-30); CHLORIDE 95 mmol/L (98-107); CREATINE KINASE 36 U/L (55-170); GLUCOSE 397 mg/dL (75-110); POTASSIUM 4.2 mmol/L (3.6-5.0); TOTAL PROTEIN 6.9 g/dL (6.3-8.2)
[2018-12-22 23:33] LABS: TROPONIN I < 0.012 ng/mL
[2018-12-22] MEDS ORDERED: MORPHINE SULFATE 10 MG/ML INJ IV ONE (23:50)
[2018-12-23] MEDS ORDERED: ONDANSETRON HCL INJ/PF 4 MG/2 ML SDV IV ONE
[2018-12-23] MEDS ORDERED: MORPHINE SULFATE 10 MG/ML INJ IV ONE ×2 (00:58→04:04)
--- NOTE | 2018-12-23 03:35 | RADIOLOGY REPORT (SQ) ---
EXAM DESCRIPTION: CT CHEST ANGIOGRAPHY WITHOUT THEN WITH IV CONTRAST COMPLETED DATE/TME: 12/23/2018 02:12 CLINICAL HISTORY: 58 years Male, Chest pain Comparison: CR, same day. Technique: IV contrast. Coronal and sagittal reformat. 3d reconstruction. This exam was performed according to our departmental dose-optimization program, which includes automated exposure control, adjustment of the mA and/or kV according to patient size and/or use of iterative reconstruction technique.[facility]: Dose Right [facility]: CareDose [facility]: Dose Right [facility]: Teradose 4D [facility]: Smart [employer] LIMITATIONS: None Findings: No pulmonary embolus. No right ventricular strain. Old granulomatous disease. Atherosclerotic vascular disease. Mild/moderate anterior vertebral wedging of multiple midthoracic vertebral bodies with exaggerated kyphosis. Inferior neck, axillae, mediastinum, airway, lymphatics, heart, vasculature, upper abdomen, and musculoskeleton appear otherwise unremarkable. Impression: No pulmonary embolus. No acute cardiopulmonary findings.
[2018-12-23] MEDS ORDERED: MAG HYDROX/AL HYDROX/SIMETH SUSP 30 ML UDCUP PO PRN (05:02)
[2018-12-23] MEDS ORDERED: ACETAMINOPHEN 325 MG TABLET PO PRN (05:02)
[2018-12-23] MEDS ORDERED: MORPHINE SULFATE 10 MG/ML INJ IV PRN ×2 (05:02→05:18)
[2018-12-23] MEDS ORDERED: LEVALBUTEROL HCL NEB 0.63 MG/3 ML AMPUL NEB PRN (05:02)
[2018-12-23] MEDS ORDERED: MAGNESIUM HYDROXIDE SUSP 30 ML UDCUP PO PRN (05:02)
[2018-12-23] MEDS ORDERED: NICOTINE 21 MG/24 HR PATCH.TD24 TD PRN (05:02)
[2018-12-23] MEDS ORDERED: NITROGLYCERIN 0.4 MG/TAB 25 TAB/BOTTLE SL PRN (05:02)
[2018-12-23] MEDS ORDERED: ONDANSETRON HCL INJ/PF 4 MG/2 ML SDV IV PRN (05:04)
[2018-12-23] MEDS ORDERED: DEXTROSE 50%-WATER 25 GM/50 ML DISP.SYRIN IV PRN ×2 (06:09)
[2018-12-23] MEDS ORDERED: GLUCAGON,HUMAN RECOMB 1 MG INJ IM PRN (06:09)
[2018-12-23] MEDS ORDERED: DEXTROSE 40% GEL 15 GM TUBE PO PRN ×2 (06:09)
[2018-12-23] MEDS: HEPARIN SOD (PORCINE) 5,000 UNIT/ML 1 ML VIAL SUBCUT SCH ×3 (06:30→21:16)
[2018-12-23] MEDS: MORPHINE SULFATE 10 MG/ML INJ IV PRN ×3 (06:35→19:58)
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
[2018-12-23 07:12] LABS: CHOLESTEROL 205.73 mg/dL (0-200); CREATINE KINASE 26 U/L (55-170); TRIGLYCERIDES 323 mg/dL (<150)
[2018-12-23 07:21] LABS: CREATINE KINASE MB 0.31 ng/mL (<4.55)
[2018-12-23 07:23] LABS: DIRECT LDL 124 mg/dL (<100)
[2018-12-23 07:27] LABS: VLDL CHOLESTEROL 64.6 mg/dL (10-31)
[2018-12-23 07:31] LABS: TROPONIN I < 0.012 ng/mL
[2018-12-23 07:59] LABS: FREE T3 6.82 pg/mL (2.77-5.27); FREE T4 (FREE THYROXINE) 1.15 ng/dL (0.78-2.19)
[2018-12-23] MEDS: SUCRALFATE 1 GM TABLET PO SCH ×4 (08:07→21:16)
[2018-12-23] MEDS: FAMOTIDINE 20 MG TABLET PO SCH ×4 (08:07→21:16)
[2018-12-23] MEDS: METOCLOPRAMIDE HCL 10 MG TABLET PO SCH ×4 (08:07→21:16)
[2018-12-23 08:12] LABS: THYROID STIMULATING HORMONE 2.17 uIU/mL (0.47-4.68)
[2018-12-23] MEDS: DOCUSATE SODIUM 100 MG CAPSULE PO SCH ×2 (10:25→17:43)
[2018-12-23] MEDS: INSULIN REG, HUMAN 100 UNIT/ML 3 ML VIAL (PYX) SUBCUT PRN ×3 (12:31→22:44)
[2018-12-23 13:41] LABS: CREATINE KINASE MB 0.26 ng/mL (<4.55)
[2018-12-23 14:01] LABS: TROPONIN I < 0.012 ng/mL
[2018-12-23 19:12] LABS: CREATINE KINASE MB 0.27 ng/mL (<4.55)
[2018-12-23 19:13] LABS: TROPONIN I < 0.012 ng/mL
[2018-12-24] MEDS: MORPHINE SULFATE 10 MG/ML INJ IV PRN ×4 (01:00→15:28)
[2018-12-24] MEDS: HEPARIN SOD (PORCINE) 5,000 UNIT/ML 1 ML VIAL SUBCUT SCH ×3 (05:09→21:41)
[2018-12-24] MEDS: FAMOTIDINE 20 MG TABLET PO SCH ×4 (08:12→21:41)
[2018-12-24] MEDS: INSULIN REG, HUMAN 100 UNIT/ML 3 ML VIAL (PYX) SUBCUT PRN ×4 (08:25→21:40)
[2018-12-24] MEDS: METOCLOPRAMIDE HCL 10 MG TABLET PO SCH ×3 (10:19→21:47)
[2018-12-24] MEDS: SUCRALFATE 1 GM TABLET PO SCH ×3 (10:19→21:47)
[2018-12-24] MEDS: DOCUSATE SODIUM 100 MG CAPSULE PO SCH ×2 (11:07→18:31)
--- NOTE | 2018-12-24 11:23 | EKG REPORT ---
SEVERITY:- ABNORMAL ECG - SINUS RHYTHM PROBABLE LEFT ATRIAL ABNORMALITY RIGHT BUNDLE BRANCH BLOCK : Confirmed by: Deepak Fang 24-Dec-2018 11:22:41
[2018-12-24] MEDS ORDERED: ONDANSETRON HCL INJ/PF 4 MG/2 ML SDV IV PRN (15:30)
--- NOTE | 2018-12-24 17:42 | PDOC PROGRESS REPORT ---
Subjective Progress Note for:: 12/24/18 Subjective:: No adverse events overnight. Whenever they came in to inject him with dye for his stress test this morning he told him he was having chest pain so that it can give it to him. His troponins have been flat. He has had no evidence of ischemia on his EKG or on telemetry. He was asleep whenever I came to see him. I had to wake him up to talk to him and when I wake him up he told me he was having chest pain. I told him that I was impressed that he can sleep through chest pain. He told me it was not really that bad right now, that he was actually having a headache. Reason For Visit: CHEST PAIN Physical Exam Vital Signs: Temp Pulse Resp BP Pulse Ox 98.2 F 73 16 115/52 L 98 12/24/18 15:05 12/24/18 15:05 12/24/18 15:05 12/24/18 15:05 12/24/18 15:05 Intake & Output 12/23/18 12/24/18 12/25/18 06:59 06:59 06:59 Intake Total 658 480 Output Total 375 Balance 283 480 Weight 77.111 kg 174.1 kg General appearance: PRESENT: no acute distress, cooperative, disheveled, morbidly obese Respiratory exam: PRESENT: clear to auscultation dany, symmetrical, unlabored. ABSENT: accessory muscle use, chest wall tenderness, crackles, prolonged expiratory phas, rhonchi, tachypnea, wheezes Cardiovascular exam: PRESENT: RRR, +S1, +S2 Pulses: PRESENT: normal carotid pulses Vascular exam: PRESENT: normal capillary refill GI/Abdominal exam: PRESENT: normal bowel sounds, soft. ABSENT: distended, guarding, rebound, tenderness Extremities exam: ABSENT: clubbing, pedal edema Musculoskeletal exam: PRESENT: normal inspection. ABSENT: deformity Neurological exam: PRESENT: awake, oriented to person, oriented to place, oriented to situation Psychiatric exam: PRESENT: flat affect Skin exam: PRESENT: dry, warm Results Laboratory Results: 12/22/18 22:53 12/22/18 22:53 12/22/18 12/22/18 12/23/18 22:53 22:53 01:10 Creatine Kinase 36 L CK-MB (CK-2) 0.50 Troponin I < 0.012 < 0.012 12/23/18 12/23/18 12/23/18 06:21 06:21 12:33 Creatine Kinase 26 L < 20 L CK-MB (CK-2) 0.31 Troponin I < 0.012 12/23/18 12/23/18 12/23/18 12:33 18:29 18:29 Creatine Kinase < 20 L CK-MB (CK-2) 0.26 0.27 Troponin I < 0.012 < 0.012 Impressions: Chest X-Ray 12/22/18 00:00 IMPRESSION: No acute disease. copyright 2011 [employer] All Rights Reserved Assessment and Plan - Diagnosis (1) Chest pain Qualifiers: Chest pain type: unspecified Qualified Code(s): R07.9 - Chest pain, unspecified Is this a current diagnosis for this admission?: Yes Plan: I am wondering whether or not his chest pain is actually cardiac in origin, I suspect it is not. I told him that we are to get the stress test in the morning. We will continue to monitor until then. - Time Time Spent with patient: 15-24 minutes
[2018-12-25] MEDS: HEPARIN SOD (PORCINE) 5,000 UNIT/ML 1 ML VIAL SUBCUT SCH ×2 (05:26→14:15)
[2018-12-25] MEDS: MORPHINE SULFATE 10 MG/ML INJ IV PRN ×2 (08:48→14:26)
[2018-12-25] MEDS: SUCRALFATE 1 GM TABLET PO SCH ×3 (08:53→16:27)
[2018-12-25] MEDS: METOCLOPRAMIDE HCL 10 MG TABLET PO SCH ×3 (08:53→16:27)
[2018-12-25] MEDS: FAMOTIDINE 20 MG TABLET PO SCH ×3 (08:53→16:26)
[2018-12-25] MEDS ORDERED: REGADENOSON INJ 0.4 MG/5 ML DISP.SYRIN IV ONE (12:27)
[2018-12-25] MEDS: DOCUSATE SODIUM 100 MG CAPSULE PO SCH ×2 (12:53→17:43)
[2018-12-25] MEDS: INSULIN REG, HUMAN 100 UNIT/ML 3 ML VIAL (PYX) SUBCUT PRN ×2 (12:54→16:41)
--- NOTE | 2018-12-25 17:15 | PDOC DISCHARGE SUMMARY ---
Impression - Admit/DC Date/PCP Admission Date/Primary Care Provider: 12/23/18 04:45 Discharge Date: 12/25/18 - Discharge Diagnosis (1) Chest pain Is this a current diagnosis for this admission?: Yes - Additional Information Resuscitation Status: Full Code Discharge Diet: Cardiac Discharge Activity: Activity As Tolerated Referrals: IAN QUINN MD [NO LOCAL MD] - 01/01/19 10:00 am MARK GOLDSTEIN MD [ACTIVE STAFF] - (1 week) Prescriptions: Aspirin [Aspirin 81 mg Chewable Tablet] 81 mg PO DAILY #1 pkg Home Medications: Aspirin [Aspirin 81 mg Chewable Tablet] 81 mg PO DAILY #1 pkg 12/25/18 History of Present Illiness History of Present Illness: JANEEN HERMAN is a 58 year old male who presented to the emergency room with a 1 day history of chest pain. He admits to the sudden onset of chest pain on 12/21/2018 with a waxing and waning nature of the exquisitely intense crushing left parasternal heaviness radiating through to his mid scapular region and then converting to an electric shock and radiating down to the bilateral flanks. At the time he presented to the emergency room his pain was severe. His pain is made worse by exertion and does decrease slightly with rest but does not resolve. His pain has been accompanied by nausea but he denies other accompanying or associated signs or symptoms. He admits several prior similar episodes for which she has been instructed that he needs further evaluation but he has neglected to follow-up as instructed. He has not identified any additional aggravating or ameliorating factors for his chest pain. In the emergency room he was found to have an EKG and cardiac enzymes which showed no evidence of acute cardiac injury or ischemia. He was subsequently admitted observation status for further evaluation and treatment. Hospital Course Hospital Course: His troponins were negative and he showed no signs of ischemia on telemetry or on EKG. He had a stress test that was negative. He will take an aspirin a day when he goes home. Dr. Goldstein wants him to follow-up with him in the office. His labs and examination were reassuring and he was discharged in good condition. Physical Exam Vital Signs: Temp Pulse Resp BP Pulse Ox 98.2 F 90 16 120/64 96 12/25/18 14:58 12/25/18 14:58 12/25/18 14:58 12/25/18 14:58 12/25/18 14:58 Intake & Output 12/24/18 12/25/18 12/26/18 06:59 06:59 06:59 Intake Total 658 1278 300 Output Total 375 Balance 283 1278 300 Weight 174.1 kg 75 kg General appearance: PRESENT: no acute distress, cooperative, disheveled, morbidly obese Respiratory exam: PRESENT: clear to auscultation dany, symmetrical, unlabored. ABSENT: accessory muscle use, chest wall tenderness, crackles, prolonged expiratory phas, rhonchi, tachypnea, wheezes Cardiovascular exam: PRESENT: RRR, +S1, +S2 Pulses: PRESENT: normal carotid pulses Vascular exam: PRESENT: normal capillary refill GI/Abdominal exam: PRESENT: normal bowel sounds, soft. ABSENT: distended, guarding, rebound, tenderness Extremities exam: ABSENT: clubbing, pedal edema Musculoskeletal exam: PRESENT: normal inspection. ABSENT: deformity Neurological exam: PRESENT: awake, oriented to person, oriented to place, oriented to situation Psychiatric exam: PRESENT: flat affect Skin exam: PRESENT: dry, warm Results Laboratory Results: WBC 9.5 10^3/uL (4.0-10.5) 12/22/18 22:53 RBC 4.44 10^6/uL (4.35-5.55) 12/22/18 22:53 Hgb 13.9 g/dL (13.5-17.0) 12/22/18 22:53 Hct 37.9 % (37.9-51.0) 12/22/18 22:53 MCV 86 fl (80-97) 12/22/18 22:53 MCH 31.2 pg (27.0-33.4) 12/22/18 22:53 MCHC 36.5 g/dL (32.0-36.0) H 12/22/18 22:53 RDW 13.2 % (11.5-14.0) 12/22/18 22:53 Plt Count 166 10^3/uL (150-450) 12/22/18 22:53 Lymph % (Auto) 25.2 % (13-45) 12/22/18 22:53 [place] % (Auto) 9.0 % (3-13) 12/22/18 22:53 Eos % (Auto) 1.8 % (0-6) 12/22/18 22:53 Baso % (Auto) 1.1 % (0-2) 12/22/18 22:53 Absolute Neuts (auto) 6.0 10^3/uL (1.7-8.2) 12/22/18 22:53 Absolute Lymphs (auto) 2.4 10^3/uL (0.5-4.7) 12/22/18 22:53 Absolute Monos (auto) 0.9 10^3/uL (0.1-1.4) 12/22/18 22:53 Absolute Eos (auto) 0.2 10^3/uL (0.0-0.6) 12/22/18 22:53 Absolute Basos (auto) 0.1 10^3/uL (0.0-0.2) 12/22/18 22:53 Seg Neutrophils % 62.9 % (42-78) 12/22/18 22:53 D-Dimer 6.40 ug/mL (0.00-0.50) H 12/23/18 01:07 Sodium 131.9 mmol/L (137-145) L 12/22/18 22:53 Potassium 4.2 mmol/L (3.6-5.0) 12/22/18 22:53 Chloride 95 mmol/L (98-107) L 12/22/18 22:53 Carbon Dioxide 26 mmol/L (22-30) 12/22/18 22:53 Anion Gap 11 (5-19) 12/22/18 22:53 BUN 17 mg/dL (7-20) 12/22/18 22:53 Creatinine 0.63 mg/dL (0.52-1.25) 12/22/18 22:53 Est GFR ( Amer) > 60 (>60) 12/22/18 22:53 Est GFR (MDRD) Non-Af > 60 (>60) 12/22/18 22:53 Glucose 397 mg/dL (75-110) H 12/22/18 22:53 POC Glucose 360 mg/dL (70-110) H 12/25/18 15:53 Hemoglobin A1c % 11.7 % (4.7-6.0) H 12/23/18 06:21 Calcium 10.2 mg/dL (8.4-10.2) 12/22/18 22:53 Magnesium 1.9 mg/dL (1.6-2.3) 12/23/18 06:21 Total Bilirubin 0.8 mg/dL (0.2-1.3) 12/22/18 22:53 Direct Bilirubin 0.2 mg/dL (0.0-0.4) 12/22/18 22:53 Neonat Total Bilirubin Not Reportable 12/22/18 22:53 Neonat Direct Bilirubin Not Reportable 12/22/18 22:53 Neonat Indirect Bili Not Reportable 12/22/18 22:53 AST 28 U/L (17-59) 12/22/18 22:53 ALT 30 U/L (<50) 12/22/18 22:53 Alkaline Phosphatase 71 U/L (38-126) 12/22/18 22:53 Creatine Kinase < 20 U/L (55-170) L 12/23/18 18:29 CK-MB (CK-2) 0.27 ng/mL (<4.55) 12/23/18 18:29 Troponin I < 0.012 ng/mL 12/23/18 18:29 Total Protein 6.9 g/dL (6.3-8.2) 12/22/18 22:53 Albumin 4.2 g/dL (3.5-5.0) 12/22/18 22:53 Triglycerides 323 mg/dL (<150) H 12/23/18 06:21 Cholesterol 205.73 mg/dL (0-200) H 12/23/18 06:21 LDL Cholesterol Direct 124 mg/dL (<100) H 12/23/18 06:21 VLDL Cholesterol 64.6 mg/dL (10-31) H 12/23/18 06:21 HDL Cholesterol 49 mg/dL (>40) 12/23/18 06:21 TSH 2.17 uIU/mL (0.47-4.68) 12/23/18 06:21 Free T4 1.15 ng/dL (0.78-2.19) 12/23/18 06:21 Free T3 pg/mL 6.82 pg/mL (2.77-5.27) H 12/23/18 06:21 12/22/18 12/23/18 12/23/18 22:53 01:10 06:21 CK-MB (CK-2) 0.50 0.31 Troponin I < 0.012 < 0.012 < 0.012 12/23/18 12/23/18 12:33 18:29 CK-MB (CK-2) 0.26 0.27 Troponin I < 0.012 < 0.012 Impressions: Chest X-Ray 12/22/18 00:00 IMPRESSION: No acute disease. copyright 2010 [employer]- All Rights Reserved Plan Time Spent: Greater than 30 Minutes Stroke Is this a Stroke Patient?: No Acute Heart Failure - Is this a Heart Failure Patient?: No
[2018-12-25 18:27] VITALS: BP 137/94
--- NOTE | 2018-12-26 00:11 | DRAGON STRESS TEST REPORT ---
Intravenous Lexiscan Cardiolite stress test using single photon emmision computerized tomography. Date of procedure: 12/25/2018.Ordering Provider: Dr. Raphael Ortiz.Patient's status: In Patient. Indication: Chest pain. Coronary risk factors: Age, diabetes, hypertension, dyslipidemia, tobacco abuse disorder, and family history of coronary artery disease. Resting EKG: Sinus Rhythm. Right bundle branch block pattern. Stress EKG: No changes of ischemia. The patient had no chest pain or discomfort, and there were no arrhythmias seen. Reason for termination: Protocol. Conclusions: Normal EKG and hemodynamic response to IV Lexiscan. Nuclear data: At rest the patient was given 12.09 millicuries of technetium 99m sestamibi injected intravenously. As per protocol rest non gated SPECT images were obtained. Subsequently the patient was given intravenous Lexiscan at a dose of 0.4 mg in 5 mL intravenously, followed by flush with normal saline. Subsequently the stress dose of 35.6 millicuries of technetium 99m sestamibi was injected intravenously. As per protocol stress gated images were obtained. Nuclear interpretation: Review of images showed that all segments of the myocardium had normal perfusion at rest, and normal perfusion post stress with IV Lexiscan. All segments of the myocardium had normal motion, contraction, and thickening by gated study. T. I D. ratio was normal at 1.05. There is no transient ischemic dilatation of the left ventricle. Computer read rest, and stress left ventricular ejection fraction were 60 %, and 60 %, respectively. Conclusion: 1. There is no scintigraphic evidence of Lexiscan induced myocardial ischemia. 2. There is no scintigraphic evidence of myocardial infarction/scar. Recommendations: Aggressive risk factor modification, and treating the underlying co- morbidities. [facility]
== END 2018-12-25 18:47 | disposition home or self-care (01) ==
LOC: ER 21:04 → INTOOBSV 12-23 04:45 → EH 12-23 04:45 → 4S 12-23 13:26
PROVIDERS: ADMIT Emergency Medicine; ATTEND Emergency Medicine
DX: R07.9 Chest pain, unspecified (principal); E66.01 Morbid (severe) obesity due to excess calories; I25.10 Atherosclerotic heart disease of native coronary artery without angina pectoris; M54.9 Dorsalgia, unspecified; R11.2 Nausea with vomiting, unspecified; I25.2 Old myocardial infarction; F17.200 Nicotine dependence, unspecified, uncomplicated; R63.1 Polydipsia; R63.2 Polyphagia; R35.8 Other polyuria; Z79.82 Long term (current) use of aspirin; Z86.718 Personal history of other venous thrombosis and embolism; Z90.49 Acquired absence of other specified parts of digestive tract; Z82.49 Family history of ischemic heart disease and other diseases of the circulatory system; Z87.81 Personal history of (healed) traumatic fracture; Z87.19 Personal history of other diseases of the digestive system
CPT/HCPCS: 93005 ×2; 96376; 99285; 96374; 96375; 36415 ×2; 84439; 82553 ×2; 82962 ×3; 82550 ×2; 83735; 84443; 85025; 80053; 84484 ×2; 84481; 83036; 85379; 80061; 93017; 71046; 78452; 71275; 93010 ×2; G0378 ×4; A9500; J2785; A9270 ×16; J1644 ×3; J2270 ×3; J3490 ×3; J2405; Q9969; J1815

== ENCOUNTER 2019-02-01 13:11 | Emergency (ER) | payer OTHER, MEDICARE, MEDICAID ==
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
[2019-02-01] MEDS ORDERED: KETOROLAC TROMETHAMINE 60 MG/2 ML SDV IM ONE (13:49)
[2019-02-01] MEDS ORDERED: ACETAMINOPHEN 325 MG TABLET PO ONE (13:49)
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
[2019-02-01 16:01] VITALS: BP 118/59
== END 2019-02-01 16:08 | disposition home or self-care (01) ==
LOC: ER 13:11
DX: S80.02XA Contusion of left knee, initial encounter (principal); S50.02XA Contusion of left elbow, initial encounter; S80.212A Abrasion, left knee, initial encounter; S50.312A Abrasion of left elbow, initial encounter; S80.811A Abrasion, right lower leg, initial encounter; S90.412A Abrasion, left great toe, initial encounter; S60.512A Abrasion of left hand, initial encounter; S60.511A Abrasion of right hand, initial encounter; R40.4 Transient alteration of awareness; M54.2 Cervicalgia; M79.89 Other specified soft tissue disorders; V23.4XXA Motorcycle driver injured in collision with car, pick-up truck or van in traffic accident, initial encounter; F17.200 Nicotine dependence, unspecified, uncomplicated; I25.10 Atherosclerotic heart disease of native coronary artery without angina pectoris; E78.00 Pure hypercholesterolemia, unspecified; I10 Essential (primary) hypertension; J44.9 Chronic obstructive pulmonary disease, unspecified; E11.9 Type 2 diabetes mellitus without complications; Z86.718 Personal history of other venous thrombosis and embolism; Z87.820 Personal history of traumatic brain injury; I25.2 Old myocardial infarction; Z90.49 Acquired absence of other specified parts of digestive tract
CPT/HCPCS: 99284; 96374; 73610; 73080; 73620; 73130; 73502; 73564; 71101; 73030; 73110; 70450; 72125; L0120; J1885

== ENCOUNTER 2019-02-05 10:18 | Emergency (ER) | payer OTHER, MEDICARE, MEDICAID ==
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
[2019-02-05] MEDS ORDERED: DIAZEPAM 5 MG TABLET PO ONE (12:46)
[2019-02-05] MEDS ORDERED: OXYCODONE-ACETAMINOPHEN 5-325 MG TABLET PO ONE (12:46)
[2019-02-05 14:22] VITALS: BP 135/67
== END 2019-02-05 14:26 | disposition home or self-care (01) ==
LOC: ER 10:18
DX: S13.9XXD Sprain of joints and ligaments of unspecified parts of neck, subsequent encounter (principal); M43.6 Torticollis; M54.2 Cervicalgia; V29.40XD Motorcycle driver injured in collision with unspecified motor vehicles in traffic accident, subsequent encounter; F17.200 Nicotine dependence, unspecified, uncomplicated; I25.10 Atherosclerotic heart disease of native coronary artery without angina pectoris; J44.9 Chronic obstructive pulmonary disease, unspecified; E11.9 Type 2 diabetes mellitus without complications
CPT/HCPCS: 99283

== ENCOUNTER 2019-02-22 09:03 | Emergency (ER) | payer MEDICARE, MEDICAID ==
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
[2019-02-22 09:48] LABS: ABSOLUTE BASOPHILS # (AUTO) 0.1 10^3/uL (0.0-0.2); ABSOLUTE EOSINOPHILS # (AUTO) 0.2 10^3/uL (0.0-0.6); ABSOLUTE LYMPHOCYTES (AUTO) 2.1 10^3/uL (0.5-4.7); ABSOLUTE MONOCYTES (AUTO) 0.7 10^3/uL (0.1-1.4); ABSOLUTE NEUT (AUTO) 4.2 10^3/uL (1.7-8.2); BASOPHILS % (AUTO) 1.1 % (0-2); EOSINOPHILS % (AUTO) 2.8 % (0-6); HEMOGLOBIN 15.2 g/dL (13.5-17.0); LYMPHOCYTES % (AUTO) 29.3 % (13-45); MEAN CORPUSCULAR HEMOGLOBIN 30.3 pg (27.0-33.4); MEAN CORPUSCULAR HGB CONC 35.4 g/dL (32.0-36.0); MEAN CORPUSCULAR VOLUME 86 fl (80-97); MONOCYTES % (AUTO) 9.2 % (3-13); PLATELET COUNT 169 10^3/uL (150-450); RED BLOOD COUNT 5.03 10^6/uL (4.35-5.55); RED CELL DISTRIBUTION WIDTH 13.6 % (11.5-14.0); SEGMENTED NEUTROPHILS % (AUTO) 57.6 % (42-78); TOTAL CELLS COUNTED % (AUTO) 100 %; WHITE BLOOD COUNT 7.3 10^3/uL (4.0-10.5)
[2019-02-22 09:51] LABS: APPEARANCE,URINE CLEAR; BILIRUBIN,URINE NEGATIVE (NEGATIVE); COLOR,URINE COLORLESS; GLUCOSE, URINE >=500 mg/dL (NEGATIVE); KETONES,URINE NEGATIVE (NEGATIVE); PROTEIN,URINE NEGATIVE (NEGATIVE); URINE SPECIFIC GRAVITY 1.029; UROBILINOGEN,URINE NEGATIVE mg/dL (<2.0)
[2019-02-22 10:08] LABS: ALBUMIN 4.5 g/dL (3.5-5.0); ALKALINE PHOSPHATASE 87 U/L (38-126); ANION GAP 14 (5-19); ASPARTATE AMINO TRANSFERASE 27 U/L (17-59); BILIRUBIN,DIRECT 0.1 mg/dL (0.0-0.4); BILIRUBIN,TOTAL 0.8 mg/dL (0.2-1.3); BLOOD UREA NITROGEN 10 mg/dL (7-20); CALCIUM 10.6 mg/dL (8.4-10.2); CARBON DIOXIDE 25 mmol/L (22-30); CHLORIDE 94 mmol/L (98-107); POTASSIUM 4.4 mmol/L (3.6-5.0); TOTAL PROTEIN 7.6 g/dL (6.3-8.2)
[2019-02-22 10:09] LABS: URINE AMPHETAMINES SCREEN NEGATIVE; URINE BARBITURATES SCREEN NEGATIVE; URINE BENZODIAZEPINES SCREEN NEGATIVE; URINE COCAINE SCREEN NEGATIVE; URINE MARIJUANA (THC) SCREEN NEGATIVE; URINE METHADONE SCREEN NEGATIVE; URINE PHENCYCLIDINE SCREEN NEGATIVE
--- NOTE | 2019-02-22 10:20 | RADIOLOGY REPORT (SQ) ---
EXAM DESCRIPTION: U/S ABDOMEN LIMITED W/O DOP COMPLETED DATE/TIME: 02/22/2019 9:57 am REASON FOR STUDY: abdominal pain worse upper abd COMPARISON: None. TECHNIQUE: Dynamic and static grayscale images acquired of the abdomen and recorded on PACS. Additio nal selected color Doppler and spectral images recorded. LIMITATIONS: None. FINDINGS: PANCREAS: No masses. Visualized pancreatic duct normal caliber. LIVER: No masses. Echotexture normal. LIVER VASCULATURE: Normal directional flow of the main portal vein and hepatic veins. GALLBLADDER: Surgically absent. ULTRASOUND-DETECTED DRAKE'S SIGN: Not applicable. INTRAHEPATIC DUCTS AND COMMON DUCT: CBD and intrahepatic ducts normal caliber. No filling defects. INFERIOR VENA CAVA: Normal flow. AORTA: No aneurysm. RIGHT KIDNEY: Normal size. Normal echogenicity. No solid or suspicious masses. No hydronephrosis. No calcifications. PERITONEAL AND RIGHT PLEURAL SPACE: No ascites or effusions. OTHER: No other significant findings. IMPRESSION: NORMAL RIGHT UPPER QUADRANT ULTRASOUND. TECHNICAL DOCUMENTATION: JOB ID: [id number] [employer]- All Rights Reserved Reading location - IP/workstation name: [email or web address]
[2019-02-22] MEDS ORDERED: NORMAL SALINE 1000 ML 1,000 ML IV PRN (10:34)
[2019-02-22 10:40] LABS: GLUCOSE 614 mg/dL (75-110)
[2019-02-22 10:44] LABS: VENOUS BLOOD BASE EXCESS 1.7 mmol/L; VENOUS BLOOD HCO3 27.6 mmol/L (20-32); VENOUS BLOOD PCO2 47.7 mmHg (35-63); VENOUS BLOOD PH 7.38 (7.30-7.42)
[2019-02-22] MEDS ORDERED: MORPHINE SULFATE 10 MG/ML INJ IV ONE (10:53)
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
[2019-02-22] MEDS ORDERED: INSULIN REG, HUMAN 100 UNIT/ML 3 ML VIAL (PYX) IV ONE (11:15)
[2019-02-22] MEDS ORDERED: NORMAL SALINE 1000 ML 1,000 ML IV ONE (13:24)
[2019-02-22] MEDS ORDERED: KETOROLAC TROMETHAMINE INJ/PF 30 MG/1 ML SDV IV ONE (13:24)
[2019-02-22] MEDS ORDERED: SULFAMETHOXAZOLE/TRIMETHOPRIM 800-160 MG TABLET PO ONE (15:47)
[2019-02-22] MEDS ORDERED: CEPHALEXIN 500 MG CAPSULE PO ONE (15:48)
--- NOTE | 2019-02-22 15:50 | RADIOLOGY REPORT (SQ) ---
EXAM DESCRIPTION: VENOUS UNILATERAL LOWER COMPLETED DATE/TIME: 02/22/2019 3:38 pm REASON FOR STUDY: left lower extremity swelling, pain COMPARISON: None. TECHNIQUE: Dynamic and static tang scale and color images acquired of the left leg venous system. Se lected spectral images acquired with additional compression and augmentation maneuvers. The contralat eral common femoral vein and saphenofemoral junction were also imaged. Images stored on PACS. LIMITATIONS: None. FINDINGS: COMMON FEMORAL: Normal phasicity, compression and augmentation. No visualized echogenic ma terial on tang scale. No defects on color images. FEMORAL: Normal compression and augmentation. No visualized echogenic material on tang scale. No defe cts on color images. POPLITEAL: Normal compression, augmentation. No visualized echogenic material on tang scale. No defec ts on color images. CALF VESSELS: Normal compression, augmentation. No visualized echogenic material on tang scale. No de fects on color images. GSV and SSV: Normal compression, augmentation. No visualized echogenic material on tang scale. No def ects on color images. ANY DEEP VENOUS INSUFFICIENCY: Not evaluated. ANY EVIDENCE OF POPLITEAL CYST: No. OTHER: No other significant finding. CONTRALATERAL COMMON FEMORAL VEIN AND SAPHENOFEMORAL JUNCTION: Normal phasicity, compression and augmentation. No visualized echogenic material on tang scale. No de fects on color images. IMPRESSION: Negative examination for deep venous thrombosis in the left lower extremity. TECHNICAL DOCUMENTATION: JOB ID: [id number] [employer]- All Rights Reserved Reading location - IP/workstation name: [email or web address]
[2019-02-22 15:51] VITALS: BP 111/63
--- NOTE | 2019-02-22 17:10 | EKG REPORT ---
SEVERITY:- ABNORMAL ECG - SINUS RHYTHM RIGHT BUNDLE BRANCH BLOCK : Confirmed by: Med Davenport MD 22-Feb-2019 17:09:24
== END 2019-02-22 16:05 | disposition home or self-care (01) ==
LOC: ER 09:03
DX: R10.13 Epigastric pain (principal); E10.65 Type 1 diabetes mellitus with hyperglycemia; E78.00 Pure hypercholesterolemia, unspecified; F17.200 Nicotine dependence, unspecified, uncomplicated; Z90.49 Acquired absence of other specified parts of digestive tract; Z79.4 Long term (current) use of insulin
CPT/HCPCS: 93005; 99284; 96361; 96374; 96375; 36415; 82962; 83690; 85025; 80053; 81001; 80307; 82803; 93971; 76705; 93010; A9270 ×3; J1885; J2270; J7030; J1815

== ENCOUNTER 2019-02-27 22:52 | Emergency (ER) | payer MEDICARE, MEDICAID ==
[2019-02-28 00:16] LABS: ALBUMIN 4.6 g/dL (3.5-5.0); ALKALINE PHOSPHATASE 89 U/L (38-126); ANION GAP 12 (5-19); ASPARTATE AMINO TRANSFERASE 36 U/L (17-59); BILIRUBIN,DIRECT 0.1 mg/dL (0.0-0.4); BLOOD UREA NITROGEN 12 mg/dL (7-20); CALCIUM 10.2 mg/dL (8.4-10.2); CARBON DIOXIDE 27 mmol/L (22-30); CHLORIDE 94 mmol/L (98-107); CREATINE KINASE 23 U/L (55-170); POTASSIUM 4.5 mmol/L (3.6-5.0); TOTAL PROTEIN 7.8 g/dL (6.3-8.2)
[2019-02-28 00:27] LABS: CREATINE KINASE MB 0.36 ng/mL (<4.55); TROPONIN I < 0.012 ng/mL
[2019-02-28 00:29] LABS: GLUCOSE 405 mg/dL (75-110)
[2019-02-28 00:31] LABS: ABSOLUTE BASOPHILS # (AUTO) 0.1 10^3/uL (0.0-0.2); ABSOLUTE EOSINOPHILS # (AUTO) 0.1 10^3/uL (0.0-0.6); ABSOLUTE LYMPHOCYTES (AUTO) 2.8 10^3/uL (0.5-4.7); ABSOLUTE MONOCYTES (AUTO) 0.7 10^3/uL (0.1-1.4); ABSOLUTE NEUT (AUTO) 6.7 10^3/uL (1.7-8.2); BASOPHILS % (AUTO) 0.8 % (0-2); HEMOGLOBIN 16.1 g/dL (13.5-17.0); MEAN CORPUSCULAR HEMOGLOBIN 30.4 pg (27.0-33.4); MEAN CORPUSCULAR HGB CONC 35.7 g/dL (32.0-36.0); MEAN CORPUSCULAR VOLUME 85 fl (80-97); MONOCYTES % (AUTO) 6.9 % (3-13); PLATELET COUNT 177 10^3/uL (150-450); RED BLOOD COUNT 5.29 10^6/uL (4.35-5.55); RED CELL DISTRIBUTION WIDTH 13.8 % (11.5-14.0); SEGMENTED NEUTROPHILS % (AUTO) 64.3 % (42-78); TOTAL CELLS COUNTED % (AUTO) 100 %; WHITE BLOOD COUNT 10.4 10^3/uL (4.0-10.5)
[2019-02-28] MEDS ORDERED: NORMAL SALINE 1000 ML 1,000 ML IV ONE (01:29)
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
--- NOTE | 2019-02-28 02:20 | RADIOLOGY REPORT (SQ) ---
EXAM DESCRIPTION: CT CHEST ANGIOGRAPHY WITHOUT THEN WITH IV CONTRAST COMPLETED DATE/TME: 02/28/2019 01:35 CLINICAL HISTORY: 58 years, Male, chest pain, radiates to back, tachycardia COMPARISON: 12/23/2018 CTA TECHNIQUE: 450 Images stored on PACS. All CT scanners at this facility use dose modulation, iterative reconstruction, and/or weight based dosing when appropriate to reduce radiation dose to as low as reasonably achievable (ALARA). Axial images with coronal and sagittal MIPS [facility]: Dose Right [facility]: CareDose [facility]: Dose Right [facility]: Teradose 4D [facility]: [employer] LIMITATIONS: None. FINDINGS: The mediastinal vasculature enhances normally. No filling defect to suggest pulmonary embolus. Negative for thoracic aortic aneurysm or dissection. The heart and pericardium are unremarkable. Limited evaluation of upper abdomen unremarkable. Osseous structures are grossly intact. No pneumothorax. Calcified renal lumen the lateral right upper lobe, and in the lung bases.. Lungs are otherwise clear IMPRESSION: No acute intrathoracic process TECHNICAL DOCUMENTATION: Quality ID # 436: Final reports with documentation of one or more dose reduction techniques (e.g., Automated exposure control, adjustment of the mA and/or kV according to patient size, use of iterative reconstruction technique) copyright 2010 [employer]- All Rights Reserved
[2019-02-28] MEDS ORDERED: KETOROLAC TROMETHAMINE INJ/PF 30 MG/1 ML SDV IV ONE (04:43)
[2019-02-28] MEDS ORDERED: HYDROCODONE/ACETAMINOPHEN 5-325 MG (6 TAB/ER DISP) PO PRN (05:57)
[2019-02-28] MEDS ORDERED: MORPHINE SULFATE 10 MG/ML INJ IV ONE (06:06)
[2019-02-28 06:27] VITALS: BP 131/73
--- NOTE | 2019-02-28 12:45 | EKG REPORT ---
SEVERITY:- ABNORMAL ECG - SINUS RHYTHM PROBABLE LEFT ATRIAL ABNORMALITY RIGHT BUNDLE BRANCH BLOCK : Confirmed by: Deepak Fang 28-Feb-2019 12:44:37
--- NOTE | 2019-02-28 12:45 | EKG REPORT ---
SEVERITY:- ABNORMAL ECG - SINUS TACHYCARDIA RIGHT BUNDLE BRANCH BLOCK : Confirmed by: Deepak Fang 28-Feb-2019 12:44:46
== END 2019-02-28 06:27 | disposition home or self-care (01) ==
LOC: ER 22:52
DX: R07.9 Chest pain, unspecified (principal); R00.0 Tachycardia, unspecified; R11.0 Nausea; I45.10 Unspecified right bundle-branch block; E11.9 Type 2 diabetes mellitus without complications; F17.200 Nicotine dependence, unspecified, uncomplicated; I25.10 Atherosclerotic heart disease of native coronary artery without angina pectoris; I10 Essential (primary) hypertension; I25.2 Old myocardial infarction; J44.9 Chronic obstructive pulmonary disease, unspecified; Z88.8 Allergy status to other drugs, medicaments and biological substances; Z82.49 Family history of ischemic heart disease and other diseases of the circulatory system
CPT/HCPCS: 93005 ×2; 99285; 96361; 96374; 96375; 36415; 82553; 82962; 82550; 83690; 85025; 80053; 84484; 71275; 93010 ×2; J1885; J2270; J7030; A9270

== ENCOUNTER 2019-02-28 07:03 | Emergency (ER) | payer MEDICARE, MEDICAID ==
[2019-02-28] MEDS ORDERED: METOCLOPRAMIDE HCL ORAL SOLN 10 MG/10 ML UDCUP PO ONE (09:18)
[2019-02-28] MEDS ORDERED: MAG HYDROX/AL HYDROX/SIMETH SUSP 30 ML UDCUP PO ONE (09:18)
[2019-02-28] MEDS ORDERED: LIDOCAINE 2% VISCOUS SOLN 20 ML UDCUP PO ONE (09:18)
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
[2019-02-28] MEDS ORDERED: LORAZEPAM 1 MG TABLET PO ONE ×2 (09:25→09:27)
[2019-02-28] MEDS ORDERED: LORAZEPAM INJ 2 MG/1 ML VIAL IV ONE (09:26)
[2019-02-28] MEDS ORDERED: NORMAL SALINE 1000 ML 1,000 ML IV ONE (09:26)
[2019-02-28 10:39] LABS: ALKALINE PHOSPHATASE 85 U/L (38-126); ANION GAP 9 (5-19); ASPARTATE AMINO TRANSFERASE 66 U/L (17-59); BILIRUBIN,DIRECT 0.2 mg/dL (0.0-0.4); BILIRUBIN,TOTAL 1.3 mg/dL (0.2-1.3); BLOOD UREA NITROGEN 14 mg/dL (7-20); CALCIUM 9.2 mg/dL (8.4-10.2); CARBON DIOXIDE 27 mmol/L (22-30); CHLORIDE 99 mmol/L (98-107); POTASSIUM 4.8 mmol/L (3.6-5.0); TOTAL PROTEIN 7.1 g/dL (6.3-8.2)
[2019-02-28 10:47] LABS: GLUCOSE 401 mg/dL (75-110)
[2019-02-28] MEDS ORDERED: INSULIN REG, HUMAN 100 UNIT/ML 3 ML VIAL (PYX) SUBCUT ONE (10:48)
[2019-02-28] MEDS: NORMAL SALINE 1000 ML 1,000 ML IV PRN ×2 (11:36→13:08)
--- NOTE | 2019-02-28 12:44 | EKG REPORT ---
SEVERITY:- ABNORMAL ECG - SINUS RHYTHM RIGHT BUNDLE BRANCH BLOCK PROBABLE LEFT VENTRICULAR HYPERTROPHY : Confirmed by: Deepak Fang 28-Feb-2019 12:44:12
[2019-02-28 13:16] VITALS: BP 101/64
== END 2019-02-28 13:05 | disposition home or self-care (01) ==
LOC: ER 07:03
DX: R10.13 Epigastric pain (principal); R07.9 Chest pain, unspecified; E11.9 Type 2 diabetes mellitus without complications; I25.10 Atherosclerotic heart disease of native coronary artery without angina pectoris; E78.5 Hyperlipidemia, unspecified; E78.00 Pure hypercholesterolemia, unspecified; I11.0 Hypertensive heart disease with heart failure; Z86.718 Personal history of other venous thrombosis and embolism; Z90.49 Acquired absence of other specified parts of digestive tract; I25.2 Old myocardial infarction
CPT/HCPCS: 93005; 99284; 96360; 36415; 82962; 83690; 80053; 93010; J3490; A9270 ×4; J7030; J1815

== ENCOUNTER 2019-05-24 14:05 | Inpatient (IN) | payer MEDICARE, MEDICAID ==
[2019-05-24 14:29] LABS: VENOUS BLOOD BASE EXCESS -1.2 mmol/L; VENOUS BLOOD HCO3 24.4 mmol/L (20-32); VENOUS BLOOD PCO2 43.6 mmHg (35-63); VENOUS BLOOD PH 7.37 (7.30-7.42)
[2019-05-24 14:32] LABS: ABSOLUTE BASOPHILS # (AUTO) 0.1 10^3/uL (0.0-0.2); ABSOLUTE EOSINOPHILS # (AUTO) 0.1 10^3/uL (0.0-0.6); ABSOLUTE LYMPHOCYTES (AUTO) 1.5 10^3/uL (0.5-4.7); ABSOLUTE MONOCYTES (AUTO) 0.6 10^3/uL (0.1-1.4); ABSOLUTE NEUT (AUTO) 6.8 10^3/uL (1.7-8.2); BASOPHILS % (AUTO) 0.8 % (0-2); HEMATOCRIT 41.5 % (37.9-51.0); HEMOGLOBIN 14.8 g/dL (13.5-17.0); LYMPHOCYTES % (AUTO) 16.1 % (13-45); MEAN CORPUSCULAR HEMOGLOBIN 30.9 pg (27.0-33.4); MEAN CORPUSCULAR HGB CONC 35.6 g/dL (32.0-36.0); MEAN CORPUSCULAR VOLUME 87 fl (80-97); MONOCYTES % (AUTO) 6.9 % (3-13); PLATELET COUNT 144 10^3/uL (150-450); RED BLOOD COUNT 4.77 10^6/uL (4.35-5.55); RED CELL DISTRIBUTION WIDTH 13.3 % (11.5-14.0); SEGMENTED NEUTROPHILS % (AUTO) 75.2 % (42-78); TOTAL CELLS COUNTED % (AUTO) 100 %; WHITE BLOOD COUNT 9.1 10^3/uL (4.0-10.5)
[2019-05-24 14:37] LABS: INTERNATIONAL RATION (INR) 1.04; PROTHROMBIN TIME 13.6 SEC (11.4-15.4)
[2019-05-24 14:46] LABS: ALKALINE PHOSPHATASE 71 U/L (38-126); ANION GAP 13 (5-19); ASPARTATE AMINO TRANSFERASE 21 U/L (17-59); BILIRUBIN,DIRECT 0.2 mg/dL (0.0-0.4); BILIRUBIN,TOTAL 0.7 mg/dL (0.2-1.3); BLOOD UREA NITROGEN 15 mg/dL (7-20); CALCIUM 9.4 mg/dL (8.4-10.2); CARBON DIOXIDE 25 mmol/L (22-30); CHLORIDE 92 mmol/L (98-107); POTASSIUM 4.6 mmol/L (3.6-5.0)
[2019-05-24 14:56] LABS: GLUCOSE 622 mg/dL (75-110)
[2019-05-24 14:57] LABS: CREATINE KINASE MB 0.78 ng/mL (<4.55)
[2019-05-24 14:58] LABS: TROPONIN I < 0.012 ng/mL
[2019-05-24] MEDS ORDERED: NORMAL SALINE 1000 ML 1,000 ML IV ONE ×2 (15:03→21:00)
[2019-05-24] MEDS ORDERED: ONDANSETRON HCL INJ/PF 4 MG/2 ML SDV IV ONE (15:10)
[2019-05-24] MEDS ORDERED: MORPHINE SULFATE 10 MG/ML INJ IV ONE (15:10)
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
--- NOTE | 2019-05-24 15:25 | EKG REPORT ---
SEVERITY:- ABNORMAL ECG - SINUS RHYTHM RIGHT BUNDLE BRANCH BLOCK LEFT VENTRICULAR HYPERTROPHY : Confirmed by: Deepak Fang 24-May-2019 15:25:08
--- NOTE | 2019-05-24 15:58 | RADIOLOGY REPORT (SQ) ---
EXAM DESCRIPTION: CHEST SINGLE VIEW COMPLETED DATE/TIME: 05/24/2019 3:41 pm REASON FOR STUDY: chest pain COMPARISON: 02/01/2019 EXAM PARAMETERS: NUMBER OF VIEWS: One view. TECHNIQUE: Single frontal radiographic view of the chest acquired. RADIATION DOSE: NA LIMITATIONS: None. FINDINGS: LUNGS AND PLEURA: No opacities, masses or pneumothorax. No pleural effusion. MEDIASTINUM AND HILAR STRUCTURES: No masses. Contour normal. HEART AND VASCULAR STRUCTURES: Heart normal in size. Normal vasculature. BONES: No acute findings. HARDWARE: None in the chest. OTHER: No other significant finding. IMPRESSION: NO ACUTE RADIOGRAPHIC FINDING IN THE CHEST. TECHNICAL DOCUMENTATION: JOB ID: [id number] 2010 [employer]- All Rights Reserved Reading location - IP/workstation name: [email or web address]
[2019-05-24] MEDS ORDERED: HYDROMORPHONE HCL 2 MG TABLET PO ONE (16:14)
[2019-05-24] MEDS ORDERED: HYDROMORPHONE HCL INJ/PF 2 MG/ML AMPULE IV ONE (16:17)
[2019-05-24] MEDS ORDERED: DIAZEPAM INJ 10 MG/2 ML DISP.SYRIN IV ONE (16:30)
[2019-05-24 17:12] LABS: APPEARANCE,URINE CLEAR; BILIRUBIN,URINE NEGATIVE (NEGATIVE); COLOR,URINE STRAW; GLUCOSE, URINE >=500 mg/dL (NEGATIVE); KETONES,URINE NEGATIVE (NEGATIVE); PROTEIN,URINE NEGATIVE (NEGATIVE); URINE SPECIFIC GRAVITY 1.027; UROBILINOGEN,URINE NEGATIVE mg/dL (<2.0)
--- NOTE | 2019-05-24 18:05 | RADIOLOGY REPORT (SQ) ---
EXAM DESCRIPTION: CT CHEST WITH; CT ABD/PELVIS WITH IV ONLY COMPLETED DATE/TIME: 05/24/2019 5:33 pm REASON FOR STUDY: chest pain; chest/abdominal pain RENAL FUNCTION: Not available. COMPARISON: None. TECHNIQUE: CT scan of the chest performed using helical scanning technique with dynamic intravenous contrast injection. Images reviewed with lung, soft tissue and bone windows. Reconstructed coronal a nd sagittal MPR images reviewed. All images stored on PACS. All CT scanners at this facility use dose modulation, iterative reconstruction, and/or weight based d osing when appropriate to reduce radiation dose to as low as reasonably achievable (ALARA). [facility]: Dose Right [facility]: CareDose [facility]: Dose Right [facility]: Teradose 4D [facility]: [email or web address] RADIATION DOSE: CT Rad equipment meets quality standard of care and radiation dose reduction techniq ues were employed. CTDIvol: 7.5 - 11.0 mGy. DLP: 1223 mGy-cm.. LIMITATIONS: None. FINDINGS: AXILLAE: No adenopathy. CHEST WALL: No masses. No subcutaneous air. LUNGS: No nodules or masses. Bibasilar calcified granulomata. No pneumothorax. No infiltrates. PLEURA: No effusions. No calcifications. THYROID: No masses or significant asymmetry. HILAR AND MEDIASTINAL STRUCTURES: No identified masses or abnormal nodes. AORTA AND GREAT VESSELS: No aneurysm. No dissection. PULMONARY ARTERIES: No identified pulmonary emboli. Study not optimized for the pulmonary arteries. HEART: No pericardial effusion. HARDWARE AND LIFELINES: None. BONES: No significant finding. OTHER: No other significant finding. IMPRESSION: No acute intrathoracic findings. COMPARISON: None. RADIATION DOSE: CT Rad equipment meets quality standard of care and radiation dose reduction techniq ues were employed. CTDIvol: 7.5 - 11.0 mGy. DLP: 1223 mGy-cm.mGy. TECHNIQUE: CT scan of the abdomen and pelvis performed with intravenous and oral contrast using yared jenelle scanning technique with dynamic intravenous contrast injection. Images reviewed with lung, soft tissue and bone windows. Reconstructed coronal and sagittal MPR images reviewed. Delayed images for evaluation of the urinary system also acquired and evaluated. All images stored on PACS. All CT scanners at this facility use dose modulation, iterative reconstruction, and/or weight based d osing when appropriate to reduce radiation dose to as low as reasonably achievable (ALARA). [facility]: Dose Right [facility]: SureCare [facility]: Dose Right [facility]: Teradose 4D [facility]: [email or web address] FINDINGS: LIVER: Mildly enlarged. No masses. No dilated ducts. SPLEEN: Normal size. No focal lesions. PANCREAS: No masses. No significant calcifications. No adjacent inflammation or peripancreatic flui d collections. Pancreatic duct not dilated. GALLBLADDER: Surgically absent. ADRENAL GLANDS: No significant masses or asymmetry. RIGHT KIDNEY AND URETER: No solid masses. No significant calcification. No hydronephrosis or hydroure ter. LEFT KIDNEY AND URETER: No solid masses. No significant calcification. No hydronephrosis or hydrouret er. AORTA AND VESSELS: No aneurysm. No dissection. Renal arteries, SMA, celiac without stenosis. RETROPERITONEUM: No retroperitoneal adenopathy, hemorrhage or masses. LARGE AND SMALL BOWEL: Minimal scattered colonic diverticula without associated surrounding inflammat ory changes. No dilatation. No masses. No wall thickening. APPENDIX: Normal. ABDOMINAL WALL: No hernia or masses. PERITONEAL CAVITY: No free air. No free fluid. No peritoneal implants or masses. PELVIS: No mass or free fluid. Normal bladder. BONES: No significant or acute findings. OTHER: No other significant finding. IMPRESSION: No acute intra-abdominal/intrapelvic findings. Minimal colonic diverticulosis without evidence of acute diverticulitis. TECHNICAL DOCUMENTATION: JOB ID: [id number] Quality ID # [id number]: Final reports with documentation of one or more dose reduction techniques (e.g., Au tomated exposure control, adjustment of the mA and/or kV according to patient size, use of iterative reconstruction technique) 2010 [employer]- All Rights Reserved CONTRAST TYPE AND DOSE: contrast/concentration: Isovue 350.00 mg/ml; Total Contrast Delivered: 171.0 ml; Total Saline Delivered: 138.0 ml 171 mL Isovue 350- low osmolar. Reading location - IP/workstation name: [email or web address]
--- NOTE | 2019-05-24 18:05 | RADIOLOGY REPORT (SQ) ---
EXAM DESCRIPTION: CT CHEST WITH; CT ABD/PELVIS WITH IV ONLY COMPLETED DATE/TIME: 05/24/2019 5:33 pm REASON FOR STUDY: chest pain; chest/abdominal pain RENAL FUNCTION: Not available. COMPARISON: None. TECHNIQUE: CT scan of the chest performed using helical scanning technique with dynamic intravenous contrast injection. Images reviewed with lung, soft tissue and bone windows. Reconstructed coronal a nd sagittal MPR images reviewed. All images stored on PACS. All CT scanners at this facility use dose modulation, iterative reconstruction, and/or weight based d osing when appropriate to reduce radiation dose to as low as reasonably achievable (ALARA). [facility]: Dose Right [facility]: CareDose [facility]: Dose Right [facility]: Teradose 4D [facility]: [employer] RADIATION DOSE: CT Rad equipment meets quality standard of care and radiation dose reduction techniq ues were employed. CTDIvol: 7.5 - 11.0 mGy. DLP: 1223 mGy-cm.. LIMITATIONS: None. FINDINGS: AXILLAE: No adenopathy. CHEST WALL: No masses. No subcutaneous air. LUNGS: No nodules or masses. Bibasilar calcified granulomata. No pneumothorax. No infiltrates. PLEURA: No effusions. No calcifications. THYROID: No masses or significant asymmetry. HILAR AND MEDIASTINAL STRUCTURES: No identified masses or abnormal nodes. AORTA AND GREAT VESSELS: No aneurysm. No dissection. PULMONARY ARTERIES: No identified pulmonary emboli. Study not optimized for the pulmonary arteries. HEART: No pericardial effusion. HARDWARE AND LIFELINES: None. BONES: No significant finding. OTHER: No other significant finding. IMPRESSION: No acute intrathoracic findings. COMPARISON: None. RADIATION DOSE: CT Rad equipment meets quality standard of care and radiation dose reduction techniq ues were employed. CTDIvol: 7.5 - 11.0 mGy. DLP: 1223 mGy-cm.mGy. TECHNIQUE: CT scan of the abdomen and pelvis performed with intravenous and oral contrast using yared jenelle scanning technique with dynamic intravenous contrast injection. Images reviewed with lung, soft tissue and bone windows. Reconstructed coronal and sagittal MPR images reviewed. Delayed images for evaluation of the urinary system also acquired and evaluated. All images stored on PACS. All CT scanners at this facility use dose modulation, iterative reconstruction, and/or weight based d osing when appropriate to reduce radiation dose to as low as reasonably achievable (ALARA). [facility]: Dose Right [facility]: SureCare [facility]: Dose Right [facility]: Teradose 4D [facility]: [employer] FINDINGS: LIVER: Mildly enlarged. No masses. No dilated ducts. SPLEEN: Normal size. No focal lesions. PANCREAS: No masses. No significant calcifications. No adjacent inflammation or peripancreatic flui d collections. Pancreatic duct not dilated. GALLBLADDER: Surgically absent. ADRENAL GLANDS: No significant masses or asymmetry. RIGHT KIDNEY AND URETER: No solid masses. No significant calcification. No hydronephrosis or hydroure ter. LEFT KIDNEY AND URETER: No solid masses. No significant calcification. No hydronephrosis or hydrouret er. AORTA AND VESSELS: No aneurysm. No dissection. Renal arteries, SMA, celiac without stenosis. RETROPERITONEUM: No retroperitoneal adenopathy, hemorrhage or masses. LARGE AND SMALL BOWEL: Minimal scattered colonic diverticula without associated surrounding inflammat ory changes. No dilatation. No masses. No wall thickening. APPENDIX: Normal. ABDOMINAL WALL: No hernia or masses. PERITONEAL CAVITY: No free air. No free fluid. No peritoneal implants or masses. PELVIS: No mass or free fluid. Normal bladder. BONES: No significant or acute findings. OTHER: No other significant finding. IMPRESSION: No acute intra-abdominal/intrapelvic findings. Minimal colonic diverticulosis without evidence of acute diverticulitis. TECHNICAL DOCUMENTATION: JOB ID: [id number] Quality ID # [id number]: Final reports with documentation of one or more dose reduction techniques (e.g., Au tomated exposure control, adjustment of the mA and/or kV according to patient size, use of iterative reconstruction technique) 2010 [employer]- All Rights Reserved CONTRAST TYPE AND DOSE: contrast/concentration: Isovue 350.00 mg/ml; Total Contrast Delivered: 171.0 ml; Total Saline Delivered: 138.0 ml 171 mL Isovue 350- low osmolar. Reading location - IP/workstation name: [email or web address]
[2019-05-24] MEDS ORDERED: DEXTROSE 40% GEL 15 GM TUBE PO PRN ×3 (18:53→20:46)
[2019-05-24] MEDS ORDERED: GLUCAGON,HUMAN RECOMB 1 MG INJ IM PRN ×2 (18:53→20:46)
[2019-05-24] MEDS ORDERED: DEXTROSE 50%-WATER 25 GM/50 ML DISP.SYRIN IV PRN ×4 (18:53→20:46)
[2019-05-24] MEDS ORDERED: NORMAL SALINE 100 ML with INSULIN REGULAR, HUMAN 100 UNIT IV PRN ×2 (18:53)
[2019-05-24] MEDS: NORMAL SALINE 1000 ML 1,000 ML IV PRN (19:44)
[2019-05-24] MEDS ORDERED: KETOROLAC TROMETHAMINE 60 MG/2 ML SDV IM ONE (21:45)
[2019-05-24] MEDS ORDERED: INSULIN GLARGINE,HUM.REC.ANLOG 1,000 UNIT/10 ML VIAL (PYX) SUBCUT ONE (22:09)
[2019-05-24] MEDS: INSULIN REG, HUMAN 100 UNIT/ML 3 ML VIAL (PYX) SUBCUT SCH (22:17)
[2019-05-24] MEDS ORDERED: KETOROLAC TROMETHAMINE 60 MG/2 ML SDV ONE (22:17)
[2019-05-24] MEDS: INSULIN GLARGINE,HUM.REC.ANLOG 1,000 UNIT/10 ML VIAL SUBCUT SCH (22:18)
--- NOTE | 2019-05-24 23:13 | EKG REPORT ---
SEVERITY:- ABNORMAL ECG - SINUS RHYTHM RIGHT BUNDLE BRANCH BLOCK : Confirmed by: Deepak Fang 24-May-2019 23:13:28
--- NOTE | 2019-05-25 00:14 | Progress Note ---
Provider Note Provider Note: Critical care note: 05/24/2019 Critical care start time: 20:06 Critical care issue: Severe chest pain and change in insulin and diet orders Patient was seen at the request of nursing staff due to his need for change in his diet and insulin orders as his blood sugar has fallen below 300 and his anion gap has closed. Additionally he has been complaining of severe chest pain that has been persistent since this morning and not relieved by anything that he has been given thus far. On exam his chest is clear to auscultation with unlabored breathing. Heart shows a regular rate and rhythm without murmurs clicks gallops or rubs. Abdomen is soft and nontender, bowel sounds are present normally active in all quadrants. Extremities feel no clubbing cyanosis or edema. Patient indicates that he is hungry and would like to have something to eat so he is ordered a diabetic diet with cardiac restrictions and his insulin infusion is discontinued. He will receive Lantus insulin 40 units subcu nightly and he will have before meals and at bedtime Accu-Cheks performed with sliding scale regular insulin for hyperglycemia and a hypoglycemic protocol in place. We have discussed the treatment of his chest pain in depth and initially it will be treated with Toradol 60 mg IM x1. Upon recheck after adequate time for his Toradol to take effect he states he had little or no change in his chest pain. His chest is again palpated with no reproducible quality to the chest pain on palpation of either the thorax or the abdomen. Patient does have mild tenderness in the area where he complains of pain but it is not the pain of his complaint that is being produced on palpation. We then again discussed treatment options and we will try morphine sulfate 7.5 mg IV every 2 hours as needed for pain of pain level 4 or 5/5. Critical care end time: 23:56 Total critical care time: 32 minutes
[2019-05-25] MEDS: MORPHINE SULFATE 10 MG/ML INJ IV PRN ×2 (01:25→12:02)
[2019-05-25] MEDS: NORMAL SALINE 1000 ML 1,000 ML IV PRN ×3 (02:03→20:10)
[2019-05-25 06:04] LABS: ABSOLUTE BASOPHILS # (AUTO) 0.1 10^3/uL (0.0-0.2); ABSOLUTE EOSINOPHILS # (AUTO) 0.2 10^3/uL (0.0-0.6); ABSOLUTE LYMPHOCYTES (AUTO) 2.5 10^3/uL (0.5-4.7); ABSOLUTE MONOCYTES (AUTO) 0.7 10^3/uL (0.1-1.4); ABSOLUTE NEUT (AUTO) 5.1 10^3/uL (1.7-8.2); BASOPHILS % (AUTO) 0.9 % (0-2); EOSINOPHILS % (AUTO) 2.9 % (0-6); HEMATOCRIT 38.5 % (37.9-51.0); HEMOGLOBIN 13.8 g/dL (13.5-17.0); LYMPHOCYTES % (AUTO) 28.8 % (13-45); MEAN CORPUSCULAR HEMOGLOBIN 30.5 pg (27.0-33.4); MEAN CORPUSCULAR HGB CONC 35.8 g/dL (32.0-36.0); MEAN CORPUSCULAR VOLUME 85 fl (80-97); MONOCYTES % (AUTO) 7.6 % (3-13); PLATELET COUNT 156 10^3/uL (150-450); RED BLOOD COUNT 4.52 10^6/uL (4.35-5.55); SEGMENTED NEUTROPHILS % (AUTO) 59.8 % (42-78); TOTAL CELLS COUNTED % (AUTO) 100 %; WHITE BLOOD COUNT 8.6 10^3/uL (4.0-10.5)
[2019-05-25 06:21] LABS: ANION GAP 7 (5-19); BLOOD UREA NITROGEN 15 mg/dL (7-20); CALCIUM 9.1 mg/dL (8.4-10.2); CARBON DIOXIDE 30 mmol/L (22-30); CHLORIDE 102 mmol/L (98-107); GLUCOSE 209 mg/dL (75-110)
[2019-05-25] MEDS: INSULIN REG, HUMAN 100 UNIT/ML 3 ML VIAL (PYX) SUBCUT SCH ×4 (08:00→21:06)
[2019-05-25] MEDS ORDERED: KETOROLAC TROMETHAMINE INJ/PF 30 MG/1 ML SDV IV PRN (08:07)
[2019-05-25] MEDS: ONDANSETRON HCL INJ/PF 4 MG/2 ML SDV IV PRN (08:13)
[2019-05-25] MEDS ORDERED: LIDOCAINE 2% VISCOUS SOLN 15 ML UDCUP PO PRN (09:52)
[2019-05-25] MEDS ORDERED: METOCLOPRAMIDE HCL ORAL SOLN 10 MG/10 ML UDCUP PO PRN (09:53)
[2019-05-25] MEDS ORDERED: SUCRALFATE 1 GM TABLET PO SCH (11:00)
[2019-05-25] MEDS: MAG HYDROX/AL HYDROX/SIMETH SUSP 30 ML UDCUP PO PRN (11:21)
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
--- NOTE | 2019-05-25 14:25 | PDOC PROGRESS REPORT ---
Subjective Progress Note for:: 05/25/19 Reason For Visit: CHEST PAIN 05/25/2019 Patient was admitted for chest pain, hyperglycemia, epigastric pain, history of pancreatitis, significant patient noncompliance Physical Exam Vital Signs: Temp Pulse Resp BP Pulse Ox 98.3 F 70 17 121/76 100 05/25/19 10:38 05/25/19 10:38 05/25/19 10:38 05/25/19 10:38 05/25/19 10:38 Intake & Output 05/24/19 05/25/19 05/26/19 06:59 06:59 06:59 Intake Total 3758 1476 Output Total 900 175 Balance 2858 1301 Weight 80.3 kg General appearance: PRESENT: mild distress, other - Complaining of epigastric pain Respiratory exam: PRESENT: clear to auscultation dany. ABSENT: rales, rhonchi, wheezes Cardiovascular exam: PRESENT: RRR. ABSENT: diastolic murmur, rubs, systolic murmur GI/Abdominal exam: PRESENT: normal bowel sounds, soft, tenderness - Upper quadrants Neurological exam: PRESENT: alert, awake, oriented to person, oriented to place, oriented to time, oriented to situation, CN II-XII grossly intact. ABSENT: motor sensory deficit Psychiatric exam: PRESENT: appropriate affect, normal mood. ABSENT: homicidal ideation, suicidal ideation Results Laboratory Results: 05/25/19 05:01 05/25/19 05:01 05/24/19 05/24/19 05/24/19 14:16 14:16 14:16 WBC 9.1 RBC 4.77 Hgb 14.8 Hct 41.5 MCV 87 MCH 30.9 MCHC 35.6 RDW 13.3 Plt Count 144 L Seg Neutrophils % 75.2 VBG pH VBG pCO2 VBG HCO3 VBG Base Excess Sodium 130.4 L Potassium 4.6 Chloride 92 L Carbon Dioxide 25 Anion Gap 13 BUN 15 Creatinine 0.64 Est GFR ( Amer) > 60 Glucose 622 H* Lactic Acid 5.2 H Calcium 9.4 Magnesium Total Bilirubin 0.7 AST 21 Alkaline Phosphatase 71 Total Protein 7.0 Albumin 4.0 Lipase Urine Color Urine Appearance Urine pH Ur Specific [place] Urine Protein Urine Glucose (UA) Urine Ketones Urine Blood Urine RBC (Auto) 05/24/19 05/24/19 05/24/19 14:16 14:16 16:50 WBC RBC Hgb Hct MCV MCH MCHC RDW Plt Count Seg Neutrophils % VBG pH 7.37 VBG pCO2 43.6 VBG HCO3 24.4 VBG Base Excess -1.2 Sodium Potassium Chloride Carbon Dioxide Anion Gap BUN Creatinine Est GFR ( Amer) Glucose Lactic Acid Calcium Magnesium Total Bilirubin AST Alkaline Phosphatase Total Protein Albumin Lipase 187.8 Urine Color STRAW Urine Appearance CLEAR Urine pH 5.0 Ur Specific [place] 1.027 Urine Protein NEGATIVE Urine Glucose (UA) >=500 H Urine Ketones NEGATIVE Urine Blood NEGATIVE Urine RBC (Auto) 1 05/24/19 05/25/19 05/25/19 19:01 05:01 05:01 WBC 8.6 RBC 4.52 Hgb 13.8 Hct 38.5 MCV 85 MCH 30.5 MCHC 35.8 RDW 13.0 Plt Count 156 Seg Neutrophils % 59.8 VBG pH VBG pCO2 VBG HCO3 VBG Base Excess Sodium 138.9 Potassium 4.0 Chloride 102 Carbon Dioxide 30 Anion Gap 7 BUN 15 Creatinine 0.77 Est GFR ( Amer) > 60 Glucose 209 H Lactic Acid 1.9 Calcium 9.1 Magnesium 1.8 Total Bilirubin AST Alkaline Phosphatase Total Protein Albumin Lipase 2079.9 H Urine Color Urine Appearance Urine pH Ur Specific [place] Urine Protein Urine Glucose (UA) Urine Ketones Urine Blood Urine RBC (Auto) 05/24/19 05/24/19 14:16 19:01 CK-MB (CK-2) 0.78 Troponin I < 0.012 < 0.012 Impressions: Chest X-Ray 05/24/19 14:52 IMPRESSION: NO ACUTE RADIOGRAPHIC FINDING IN THE CHEST. Chest CT 05/24/19 16:12 IMPRESSION: No acute intrathoracic findings. IMPRESSION: No acute intra-abdominal/intrapelvic findings. Minimal colonic diverticulosis without evidence of acute diverticulitis. Abdomen/Pelvis CT 05/24/19 16:13 IMPRESSION: No acute intrathoracic findings. IMPRESSION: No acute intra-abdominal/intrapelvic findings. Minimal colonic diverticulosis without evidence of acute diverticulitis. Assessment and Plan - Diagnosis (1) Pancreatitis Is this a current diagnosis for this admission?: Yes (2) Chest pain Qualifiers: Chest pain type: unspecified Qualified Code(s): R07.9 - Chest pain, unspecified Is this a current diagnosis for this admission?: Yes (3) Hyperglycemia Is this a current diagnosis for this admission?: Yes (4) Lactic acidosis Is this a current diagnosis for this admission?: Yes (5) Coronary artery disease Qualifiers: Coronary Disease-Associated Artery/Lesion type: [place] artery [place] vs. transplanted heart: [place] heart Associated angina: with unspecified angina Qualified Code(s): I25.119 - Atherosclerotic heart disease of [place] coronary artery with unspecified angina pectoris Is this a current diagnosis for this admission?: Yes (6) Hypertension Qualifiers: Hypertension type: essential hypertension Qualified Code(s): I10 - Essential (primary) hypertension Is this a current diagnosis for this admission?: Yes (7) Patient noncompliance Is this a current diagnosis for this admission?: Yes (8) Elevated lactic acid level Is this a current diagnosis for this admission?: Yes - Plan Summary Summary: Patient will have serial enzymes, patient's lipase will be rechecked, patient will have his pain managed with IV morphine. Patient has had a negative stress in November 2018 She will be put on insulin drip. Patient admits to being very noncompliant and not taking any of his medications, he has been on insulin in the past. Patient states that he has been discharged from multiple clinics because of "anger issues" 05/25/2019 Temperature 98.4 pulse is 70 blood pressure 122/69 O2 sats 95% on room air Patient's vital signs do not reflect the amount of pain that he is describing. Patient states that the morphine does not work and is requesting Toradol. Receiving the Toradol as well as a GI cocktail patient says that he does not think it worked as well as the morphine. Patient has a history of being discharged from pain management in the past and has been involved in the medical system for many years now.. Going to try 1 or 2 doses of IV Dilaudid see his response. Also going to repeat his lipase this evening I think it may have been falsely elevated due to his significant hyperglycemia, his CT scan of the abdomen showed no evidence of pancreatitis. This may be nothing more than drug-seeking behavior. Patient's blood sugars now are much better controlled in the mid 200s. Also going to get one random troponin this evening. Repeat his lactic acid His hemoglobin A1c was 9.5 Complaints chest pain, epigastric pain, hyperglycemia, chronic pain, difficult patient noncompliance - Time Time Spent with patient: 25-34 minutes
[2019-05-25] MEDS: HYDROMORPHONE HCL INJ/PF 2 MG/ML AMPULE IV PRN ×2 (17:29→23:13)
[2019-05-25 18:05] LABS: CREATINE KINASE MB 0.57 ng/mL (<4.55); TROPONIN I < 0.012 ng/mL
[2019-05-25] MEDS: INSULIN GLARGINE,HUM.REC.ANLOG 1,000 UNIT/10 ML VIAL SUBCUT SCH (21:05)
[2019-05-25] MEDS: LIPASE/PROTEASE/AMYLASE 1 CAP CAPSULE.DR PO SCH (21:05)
[2019-05-26] MEDS: ONDANSETRON HCL INJ/PF 4 MG/2 ML SDV IV PRN ×2 (01:20→13:38)
[2019-05-26] MEDS: NORMAL SALINE 1000 ML 1,000 ML IV PRN ×4 (03:53→22:00)
[2019-05-26] MEDS: HYDROMORPHONE HCL INJ/PF 2 MG/ML AMPULE IV PRN ×4 (03:57→22:51)
[2019-05-26] MEDS: INSULIN REG, HUMAN 100 UNIT/ML 3 ML VIAL (PYX) SUBCUT SCH ×4 (07:18→21:00)
[2019-05-26] MEDS: LIPASE/PROTEASE/AMYLASE 1 CAP CAPSULE.DR PO SCH ×2 (07:28→16:39)
--- NOTE | 2019-05-26 16:15 | PDOC PROGRESS REPORT ---
Subjective Progress Note for:: 05/26/19 Subjective:: JANEEN HERMAN is a 58 year old male comes in complaining of epigastric pain and chest pain.. Patient has a long history of chest pain and in fact has had previous [place] 2006, just recently in November 2018 had a stress test that was interpreted as normal. Was actually in the emergency room recently with chest pain as well and at that time had negative troponins discharged home. This occurred February 27, 2019 and patient had negative troponins x2. He looked back through his past medical history all the way back to 2013 patient has had negative troponins when he is coming to the emergency room on approximately 20 different visits. 05/26/2019. No acute events overnight. Patient complaining of persistent epigastric abdominal pain otherwise chest pain and shortness of breath has improved. Reason For Visit: CHEST PAIN Physical Exam Vital Signs: Temp Pulse Resp BP Pulse Ox 97.2 F 92 22 H 115/73 96 05/26/19 11:40 05/26/19 14:00 05/26/19 11:40 05/26/19 11:40 05/26/19 11:40 Intake & Output 05/25/19 05/26/19 05/27/19 06:59 06:59 06:59 Intake Total 3758 4443 1442 Output Total 900 625 975 Balance 2858 3818 467 Weight 80.3 kg 80.8 kg General appearance: PRESENT: obese Head exam: PRESENT: atraumatic, normocephalic Respiratory exam: PRESENT: clear to auscultation dany. ABSENT: rales, rhonchi, wheezes Cardiovascular exam: PRESENT: RRR. ABSENT: diastolic murmur, rubs, systolic murmur GI/Abdominal exam: PRESENT: firm, guarding, tenderness Neurological exam: PRESENT: alert, awake, oriented to person, oriented to place, oriented to time, oriented to situation, CN II-XII grossly intact. ABSENT: motor sensory deficit Results Laboratory Results: 05/25/19 05:01 05/25/19 05:01 05/25/19 05/25/19 16:59 16:59 Lactic Acid 1.0 Lipase 2785.7 H 05/24/19 05/24/19 05/25/19 14:16 19:01 16:59 CK-MB (CK-2) 0.78 0.57 Troponin I < 0.012 < 0.012 < 0.012 Impressions: Chest X-Ray 05/24/19 14:52 IMPRESSION: NO ACUTE RADIOGRAPHIC FINDING IN THE CHEST. Chest CT 05/24/19 16:12 IMPRESSION: No acute intrathoracic findings. IMPRESSION: No acute intra-abdominal/intrapelvic findings. Minimal colonic diverticulosis without evidence of acute diverticulitis. Abdomen/Pelvis CT 05/24/19 16:13 IMPRESSION: No acute intrathoracic findings. IMPRESSION: No acute intra-abdominal/intrapelvic findings. Minimal colonic diverticulosis without evidence of acute diverticulitis. Assessment and Plan - Diagnosis (1) Pancreatitis Qualifiers: Chronicity: acute Is this a current diagnosis for this admission?: Yes Plan: Lipase on admission 187.8. Trended up to 2785. Likely start on 12/23/[address] abdomen on 05/24/2019. No acute intra-abdominal/intrapelvic findings. Aggressive fluid resuscitation guided by volume status and electrolytes, opioid and non-opioid analgesics for pain control, advance diet as tolerated. Monitor vitals. (2) Coronary artery disease Qualifiers: Coronary Disease-Associated Artery/Lesion type: [place] artery [place] vs. transplanted heart: [place] heart Associated angina: with unspecified angina Qualified Code(s): I25.119 - Atherosclerotic heart disease of [place] coronary artery with unspecified angina pectoris Is this a current diagnosis for this admission?: Yes Plan: Denies any anginal symptoms. Troponins 0.0123. EKG no acute changes. (3) Diabetes mellitus type 2 in nonobese Is this a current diagnosis for this admission?: Yes Plan: Uncontrolled. Hemoglobin A1c 9.5. History of noncompliance. Continue diabetic diet, basal, prandial and correctional insulin. Hypoglycemia protocol. Accu-Chek. Outpatient PCP follow-up. Adjust dosage as needed. (4) Hypertension Qualifiers: Hypertension type: essential hypertension Qualified Code(s): I10 - Essential (primary) hypertension Is this a current diagnosis for this admission?: Yes Plan: Normotensive on this admission. Does not take any medication. PRN hydralazine and metoprolol. (5) Lactic acidosis Is this a current diagnosis for this admission?: Yes Plan: Resolved. (6) Chest pain Qualifiers: Chest pain type: unspecified Qualified Code(s): R07.9 - Chest pain, unspecified Is this a current diagnosis for this admission?: Yes Plan: Resolved. Most likely noncardiac. Likely musculoskeletal. Troponins negative x3. EKG no acute changes. - Plan Summary Summary: Patient will have serial enzymes, patient's lipase will be rechecked, patient w ill have his pain managed with IV morphine. Patient has had a negative stress in November 2018 She will be put on insulin drip. Patient admits to being very noncompliant and not taking any of his medications, he has been on insulin in the past. Patient states that he has been discharged from multiple clinics because of "anger issues" 05/25/2019 Temperature 98.4 pulse is 70 blood pressure 122/69 O2 sats 95% on room air Patient's vital signs do not reflect the amount of pain that he is describing. Patient states that the morphine does not work and is requesting Toradol. Receiving the Toradol as well as a GI cocktail patient says that he does not think it worked as well as the morphine. Patient has a history of being discharged from pain management in the past and has been involved in the medical system for many years now.. Going to try 1 or 2 doses of IV Dilaudid see his response. Also going to repeat his lipase this evening I think it may have been falsely elevated due to his significant hyperglycemia, his CT scan of the abdomen showed no evidence of pancreatitis. This may be nothing more than drug-seeking behavior. Patient's blood sugars now are much better controlled in the mid 200s. Also going to get one random troponin this evening. Repeat his lactic acid His hemoglobin A1c was 9.5 Complaints chest pain, epigastric pain, hyperglycemia, chronic pain, difficult p atient noncompliance
[2019-05-26] MEDS: OXYCODONE-ACETAMINOPHEN 5-325 MG TABLET PO PRN ×2 (17:13→21:20)
[2019-05-26] MEDS: INSULIN GLARGINE,HUM.REC.ANLOG 1,000 UNIT/10 ML VIAL SUBCUT SCH (21:19)
[2019-05-27] MEDS: OXYCODONE-ACETAMINOPHEN 5-325 MG TABLET PO PRN ×4 (01:20→23:43)
[2019-05-27] MEDS: HYDROMORPHONE HCL INJ/PF 2 MG/ML AMPULE IV PRN ×5 (02:50→23:32)
[2019-05-27] MEDS: NORMAL SALINE 1000 ML 1,000 ML IV PRN (02:52)
[2019-05-27 05:29] LABS: ANION GAP 8 (5-19); BLOOD UREA NITROGEN 9 mg/dL (7-20); CALCIUM 8.7 mg/dL (8.4-10.2); CARBON DIOXIDE 27 mmol/L (22-30); CHLORIDE 102 mmol/L (98-107); CHOLESTEROL 180.08 mg/dL (0-200); GLUCOSE 102 mg/dL (75-110); POTASSIUM 3.6 mmol/L (3.6-5.0); TRIGLYCERIDES 97 mg/dL (<150)
[2019-05-27] MEDS: ONDANSETRON HCL INJ/PF 4 MG/2 ML SDV IV PRN ×3 (05:34→23:38)
[2019-05-27 05:40] LABS: DIRECT LDL 111 mg/dL (<100)
[2019-05-27] MEDS: INSULIN REG, HUMAN 100 UNIT/ML 3 ML VIAL (PYX) SUBCUT SCH (07:04)
[2019-05-27] MEDS: LIPASE/PROTEASE/AMYLASE 1 CAP CAPSULE.DR PO SCH ×2 (07:20→16:45)
[2019-05-27] MEDS ORDERED: DEXTROSE 5%-WATER 1000 ML 1,000 ML IV PRN (09:21)
[2019-05-27] MEDS ORDERED: GLUCAGON,HUMAN RECOMB 1 MG INJ IM PRN (10:31)
[2019-05-27] MEDS ORDERED: DEXTROSE 50%-WATER 25 GM/50 ML DISP.SYRIN IV PRN ×2 (10:31)
[2019-05-27] MEDS ORDERED: DEXTROSE 40% GEL 15 GM TUBE PO PRN ×2 (10:31)
[2019-05-27] MEDS: RINGERS SOLUTION,LACTATED 1,000 ML IV PRN ×3 (10:55→23:42)
[2019-05-27] MEDS: INSULIN LISPRO 100 UNIT/ML 3 ML VIAL SUBCUT SCH ×3 (12:07→22:59)
--- NOTE | 2019-05-27 13:37 | PDOC PROGRESS REPORT ---
Subjective Progress Note for:: 05/27/19 Subjective:: JANEEN HERMAN is a 58 year old male comes in complaining of epigastric pain and chest pain.. Patient has a long history of chest pain and in fact has had previous [place] 2006, just recently in November 2018 had a stress test that was interpreted as normal. Was actually in the emergency room recently with chest pain as well and at that time had negative troponins discharged home. This occurred February 27, 2019 and patient had negative troponins x2. He looked back through his past medical history all the way back to 2013 patient has had negative troponins when he is coming to the emergency room on approximately 20 different visits. 05/26/2019. No acute events overnight. Patient complaining of persistent epigastric abdominal pain otherwise chest pain and shortness of breath has improved. 05/27/2019. Overnight patient was upset about his diet, had altercation with the night nurse. Patient would like his diet to be advanced however when his diet is advanced he abdominal pain gets worse. Saw patient this morning, still complaining of persistent epigastric abdominal pain, feels nauseous but has not vomited. Has not had a bowel movement. Denies any chest pain, fever, shortness of breath, chills. Reason For Visit: CHEST PAIN Physical Exam Vital Signs: Temp Pulse Resp BP Pulse Ox 98.4 F 53 L 18 100/42 L 91 L 05/27/19 07:28 05/27/19 07:35 05/27/19 07:28 05/27/19 07:28 05/27/19 07:28 Intake & Output 05/26/19 05/27/19 05/28/19 06:59 06:59 06:59 Intake Total 4443 5035 1053 Output Total 445 975 Balance 3818 4060 1053 Weight 80.8 kg 78.3 kg General appearance: PRESENT: no acute distress, well-developed, well-nourished Head exam: PRESENT: atraumatic, normocephalic Neck exam: ABSENT: carotid bruit, JVD, lymphadenopathy, thyromegaly Respiratory exam: PRESENT: clear to auscultation dany. ABSENT: rales, rhonchi, wheezes Cardiovascular exam: PRESENT: RRR. ABSENT: diastolic murmur, rubs, systolic murmur GI/Abdominal exam: PRESENT: firm, normal bowel sounds, tenderness. ABSENT: distended, guarding, mass, organolmegaly, rebound Neurological exam: PRESENT: alert, awake, oriented to person, oriented to place, oriented to time, oriented to situation, CN II-XII grossly intact. ABSENT: motor sensory deficit Results Laboratory Results: 05/25/19 05:01 05/27/19 04:41 05/27/19 04:41 Sodium 137.2 Potassium 3.6 Chloride 102 Carbon Dioxide 27 Anion Gap 8 BUN 9 Creatinine 0.60 Est GFR ( Amer) > 60 Glucose 102 Calcium 8.7 Triglycerides 97 Cholesterol 180.08 LDL Cholesterol Direct 111 H VLDL Cholesterol 19.0 HDL Cholesterol 53 05/24/19 05/24/19 05/25/19 14:16 19:01 16:59 CK-MB (CK-2) 0.78 0.57 Troponin I < 0.012 < 0.012 < 0.012 Impressions: Chest X-Ray 05/24/19 14:52 IMPRESSION: NO ACUTE RADIOGRAPHIC FINDING IN THE CHEST. Chest CT 05/24/19 16:12 IMPRESSION: No acute intrathoracic findings. IMPRESSION: No acute intra-abdominal/intrapelvic findings. Minimal colonic diverticulosis without evidence of acute diverticulitis. Abdomen/Pelvis CT 05/24/19 16:13 IMPRESSION: No acute intrathoracic findings. IMPRESSION: No acute intra-abdominal/intrapelvic findings. Minimal colonic diverticulosis without evidence of acute diverticulitis. Assessment and Plan - Diagnosis (1) Pancreatitis Qualifiers: Chronicity: acute Is this a current diagnosis for this admission?: Yes Plan: Lipase on admission 187.8. Trended up to 2785. Likely start on 12/23/[address] abdomen on 05/24/2019. No acute intra-abdominal/intrapelvic findings. Aggressive fluid resuscitation guided by volume status and electrolytes, opioid and non-opioid analgesics for pain control, advance diet as tolerated. Monitor vitals. (2) Coronary artery disease Qualifiers: Coronary Disease-Associated Artery/Lesion type: [place] artery [place] vs. transplanted heart: [place] heart Associated angina: with unspecified angina Qualified Code(s): I25.119 - Atherosclerotic heart disease of [place] coronary artery with unspecified angina pectoris Is this a current diagnosis for this admission?: Yes Plan: Denies any anginal symptoms. Troponins 0.0123. EKG no acute changes. (3) Diabetes mellitus type 2 in nonobese Is this a current diagnosis for this admission?: Yes Plan: Uncontrolled. Hemoglobin A1c 9.5. History of noncompliance. Continue diabetic diet, basal, prandial and correctional insulin. Hypoglycemia protocol. Accu-Chek. Outpatient PCP follow-up. Adjust dosage as needed. (4) Hypertension Qualifiers: Hypertension type: essential hypertension Qualified Code(s): I10 - Essential (primary) hypertension Is this a current diagnosis for this admission?: Yes Plan: Normotensive on this admission. Does not take any medication. PRN hydralazine and metoprolol. (5) Lactic acidosis Is this a current diagnosis for this admission?: Yes Plan: Resolved. (6) Chest pain Qualifiers: Chest pain type: unspecified Qualified Code(s): R07.9 - Chest pain, unspecified Is this a current diagnosis for this admission?: Yes Plan: Resolved. Most likely noncardiac. Likely musculoskeletal. Troponins negative x3. EKG no acute changes.
--- NOTE | 2019-05-27 16:34 | RADIOLOGY REPORT (SQ) ---
EXAM DESCRIPTION: CT ABDOMEN NO ORAL OR IV COMPLETED DATE/TIME: 05/27/2019 3:49 pm REASON FOR STUDY: Persistent abdominal pain. Elevated lipase. K85.00 IDIOPATHIC ACUTE PANCREATITIS WITHOUT NECROSIS OR INF COMPARISON: 05/24/2019. TECHNIQUE: CT scan of the abdomen and pelvis performed without intravenous or oral contrast. Images reviewed with lung, soft tissue, and bone windows. Reconstructed coronal and sagittal MPR images revi ewed. All images stored on PACS. All CT scanners at this facility use dose modulation, iterative reconstruction, and/or weight based d osing when appropriate to reduce radiation dose to as low as reasonably achievable (ALARA). [facility]: Dose Right [facility]: CareDose [facility]: Dose Right [facility]: Teradose 4D [facility]: [employer] RADIATION DOSE: CT Rad equipment meets quality standard of care and radiation dose reduction techniq ues were employed. CTDIvol: 9.2 mGy. DLP: 465 mGy-cm.mGy. LIMITATIONS: None. FINDINGS: LOWER CHEST: Parenchymal scarring. Calcified granulomas. NON-CONTRASTED LIVER, SPLEEN, ADRENALS: Evaluation limited by lack of IV contrast. No identified sign ificant masses. PANCREAS: No masses. No peripancreatic inflammatory changes. GALLBLADDER: Surgically absent. RIGHT KIDNEY AND URETER: No solid masses. No significant calcification. No hydronephrosis or hydroure ter. LEFT KIDNEY AND URETER: No solid masses. No significant calcification. No hydronephrosis or hydrouret er. AORTA AND RETROPERITONEUM: No aneurysm. No retroperitoneal masses or adenopathy. BOWEL AND PERITONEAL CAVITY: Colonic diverticulosis. No obvious masses or inflammatory changes. No f ree fluid. APPENDIX: Normal. PELVIS, BLADDER, AND ABDOMINAL WALL:No abnormal masses. No free fluid. Bladder normal. BONES: No significant findings. OTHER: No other significant finding. IMPRESSION: COLONIC DIVERTICULOSIS. NO FINDINGS OF DIVERTICULITIS. NO SIGNIFICANT OR ACUTE PROCESS IN THE ABDOMEN OR PELVIS. TECHNICAL DOCUMENTATION: JOB ID: [id number] Quality ID # [id number]: Final reports with documentation of one or more dose reduction techniques (e.g., Au tomated exposure control, adjustment of the mA and/or kV according to patient size, use of iterative reconstruction technique) 2010 [employer]- All Rights Reserved Reading location - IP/workstation name: [email or web address]
[2019-05-27] MEDS: INSULIN GLARGINE,HUM.REC.ANLOG 1,000 UNIT/10 ML VIAL SUBCUT SCH (22:55)
[2019-05-28] MEDS: HYDROMORPHONE HCL INJ/PF 2 MG/ML AMPULE IV PRN ×5 (03:59→21:33)
[2019-05-28] MEDS: RINGERS SOLUTION,LACTATED 1,000 ML IV PRN (07:13)
[2019-05-28] MEDS: INSULIN LISPRO 100 UNIT/ML 3 ML VIAL SUBCUT SCH ×4 (08:48→22:55)
[2019-05-28] MEDS: LIPASE/PROTEASE/AMYLASE 1 CAP CAPSULE.DR PO SCH ×2 (08:56→17:26)
[2019-05-28] MEDS: ONDANSETRON HCL INJ/PF 4 MG/2 ML SDV IV PRN ×2 (08:59→21:33)
[2019-05-28] MEDS: OXYCODONE-ACETAMINOPHEN 5-325 MG TABLET PO PRN ×2 (12:01→21:28)
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
[2019-05-28] MEDS: INSULIN GLARGINE,HUM.REC.ANLOG 1,000 UNIT/10 ML VIAL SUBCUT SCH (23:07)
[2019-05-29] MEDS: HYDROMORPHONE HCL INJ/PF 2 MG/ML AMPULE IV PRN ×2 (01:57→11:29)
[2019-05-29] MEDS: MAG HYDROX/AL HYDROX/SIMETH SUSP 30 ML UDCUP PO PRN (02:22)
[2019-05-29] MEDS: OXYCODONE-ACETAMINOPHEN 5-325 MG TABLET PO PRN ×3 (02:22→14:47)
[2019-05-29] MEDS: INSULIN LISPRO 100 UNIT/ML 3 ML VIAL SUBCUT SCH ×2 (09:43→13:18)
[2019-05-29] MEDS: LIPASE/PROTEASE/AMYLASE 1 CAP CAPSULE.DR PO SCH (09:45)
--- NOTE | 2019-05-29 14:15 | RADIOLOGY REPORT (SQ) ---
EXAM DESCRIPTION: SHOULDER LEFT 2 OR MORE VIEWS COMPLETED DATE/TIME: 05/29/2019 2:02 pm REASON FOR STUDY: shoulder pain K85.00 IDIOPATHIC ACUTE PANCREATITIS WITHOUT NECROSIS OR INF COMPARISON: 02/01/2019 NUMBER OF VIEWS: Three views. TECHNIQUE: Internal rotation, external rotation, and Y view images acquired of the left shoulder. LIMITATIONS: None. FINDINGS: MINERALIZATION: Normal. BONES: No acute fracture. No worrisome bone lesions. Mild acromioclavicular and glenohumeral osteoa rthropathy. JOINTS: No dislocation. VISUALIZED LUNGS AND RIBS: No pneumothorax. No rib fracture. SOFT TISSUES: No radiopaque foreign body. OTHER: No other significant finding. IMPRESSION: NEGATIVE STUDY OF THE LEFT SHOULDER. NO RADIOGRAPHIC EVIDENCE OF ACUTE INJURY. TECHNICAL DOCUMENTATION: JOB ID: [id number] 2010 [employer] [place]- All Rights Reserved Reading location - IP/workstation name: [email or web address]
[2019-05-29 15:24] VITALS: BP 118/68
--- NOTE | 2019-06-02 10:28 | PDOC DISCHARGE SUMMARY ---
Impression - Admit/DC Date/PCP Admission Date/Primary Care Provider: 05/27/19 15:59 IAN QUINN MD Discharge Date: 05/29/19 - Discharge Diagnosis (1) Pancreatitis Is this a current diagnosis for this admission?: Yes (2) Coronary artery disease Is this a current diagnosis for this admission?: Yes (3) Diabetes mellitus type 2 in nonobese Is this a current diagnosis for this admission?: Yes (4) Hypertension Is this a current diagnosis for this admission?: Yes (5) Lactic acidosis Is this a current diagnosis for this admission?: Yes (6) Chest pain Is this a current diagnosis for this admission?: Yes - Additional Information Resuscitation Status: Full Code Discharge Diet: As Tolerated Discharge Activity: Activity As Tolerated Referrals: IAN QUINN MD [Primary Care Provider] - 06/04/19 9:15 am Prescriptions: Glipizide [Glucotrol 5 mg Tablet] 5 mg PO BID 30 Days #60 tablet Home Medications: Glipizide [Glucotrol 5 mg Tablet] 5 mg PO BID 30 Days #60 tablet 05/28/19 History of Present Illiness History of Present Illness: JANEEN HERMAN is a 58 year old male comes in complaining of epigastric pain and chest pain.. Patient has a long history of chest pain and in fact has had pr evious [place] 2005, just recently in November 2018 had a stress test that was interpreted as normal. Was actually in the emergency room recently with chest pain as well and at that time had negative troponins discharged home. This occurred February 27, 2019 and patient had negative troponins x2. He looked back through his past medical history all the way back to 2013 patient has had negative troponins when he is coming to the emergency room on approximately 20 different visits. Hospital Course Hospital Course: (1) Pancreatitis Resovled. Lipase on admission 187.8. Trended up to 2785. Likely start on 12/23/[address] abdomen on 05/24/2019. No acute intra-abdominal/intrapelvic findings. Aggressive fluid resuscitation guided by volume status and electrolytes, opioid and non-opioid analgesics for pain control, advance diet as tolerated. Monitor vitals. (2) Coronary artery disease Denies any anginal symptoms. Troponins 0.0123. EKG no acute changes. (3) Diabetes mellitus type 2 in nonobese Uncontrolled. Hemoglobin A1c 9.5. History of noncompliance. Patient is stating that he refused to take his diabetic medication because his PCP only focus on his diabetes without addressing his other medical issues. Patient advised on medication compliance and counseled on risk of not treating underlying diabetes. Voiced understanding. Was a started on diabetic diet, basal, prandial and correctional insulin. Hypoglycemia protocol. Accu-Chek. Outpatient PCP follow-up. Adjust dosage as needed. (4) Hypertension Normotensive on this admission. Does not take any medication. PRN hydralazine and metoprolol. (5) Lactic acidosis Resolved. (6) Chest pain Resolved. Most likely noncardiac. Likely musculoskeletal. Troponins negative x3. EKG no acute changes. Physical Exam Vital Signs: Temp Pulse Resp BP Pulse Ox 98.1 F 71 16 118/68 95 05/29/19 15:15 05/29/19 15:15 05/29/19 15:15 05/29/19 15:15 05/29/19 15:15 General appearance: PRESENT: no acute distress, well-developed, well-nourished Head exam: PRESENT: atraumatic, normocephalic Respiratory exam: PRESENT: clear to auscultation dany. ABSENT: rales, rhonchi, wheezes Cardiovascular exam: PRESENT: RRR. ABSENT: diastolic murmur, rubs, systolic murmur GI/Abdominal exam: PRESENT: normal bowel sounds, soft. ABSENT: distended, guarding, mass, organolmegaly, rebound, tenderness Neurological exam: PRESENT: alert, awake, oriented to person, oriented to place, oriented to time, oriented to situation, CN II-XII grossly intact. ABSENT: motor sensory deficit Results Laboratory Results: WBC 8.6 10^3/uL (4.0-10.5) 05/25/19 05:01 RBC 4.52 10^6/uL (4.35-5.55) 05/25/19 05:01 Hgb 13.8 g/dL (13.5-17.0) 05/25/19 05:01 Hct 38.5 % (37.9-51.0) 05/25/19 05:01 MCV 85 fl (80-97) 05/25/19 05:01 MCH 30.5 pg (27.0-33.4) 05/25/19 05:01 MCHC 35.8 g/dL (32.0-36.0) 05/25/19 05:01 RDW 13.0 % (11.5-14.0) 05/25/19 05:01 Plt Count 156 10^3/uL (150-450) 05/25/19 05:01 Lymph % (Auto) 28.8 % (13-45) 05/25/19 05:01 [place] % (Auto) 7.6 % (3-13) 05/25/19 05:01 Eos % (Auto) 2.9 % (0-6) 05/25/19 05:01 Baso % (Auto) 0.9 % (0-2) 05/25/19 05:01 Absolute Neuts (auto) 5.1 10^3/uL (1.7-8.2) 05/25/19 05:01 Absolute Lymphs (auto) 2.5 10^3/uL (0.5-4.7) 05/25/19 05:01 Absolute Monos (auto) 0.7 10^3/uL (0.1-1.4) 05/25/19 05:01 Absolute Eos (auto) 0.2 10^3/uL (0.0-0.6) 05/25/19 05:01 Absolute Basos (auto) 0.1 10^3/uL (0.0-0.2) 05/25/19 05:01 Seg Neutrophils % 59.8 % (42-78) 05/25/19 05:01 PT 13.6 SEC (11.4-15.4) 05/24/19 14:16 INR 1.04 05/24/19 14:16 VBG pH 7.37 (7.30-7.42) 05/24/19 14:16 VBG pCO2 43.6 mmHg (35-63) 05/24/19 14:16 VBG HCO3 24.4 mmol/L (20-32) 05/24/19 14:16 VBG Base Excess -1.2 mmol/L 05/24/19 14:16 Sodium 137.2 mmol/L (137-145) 05/27/19 04:41 Potassium 3.6 mmol/L (3.6-5.0) 05/27/19 04:41 Chloride 102 mmol/L (98-107) 05/27/19 04:41 Carbon Dioxide 27 mmol/L (22-30) 05/27/19 04:41 Anion Gap 8 (5-19) 05/27/19 04:41 BUN 9 mg/dL (7-20) 05/27/19 04:41 Creatinine 0.60 mg/dL (0.52-1.25) 05/27/19 04:41 Est GFR ( Amer) > 60 (>60) 05/27/19 04:41 Est GFR (MDRD) Non-Af > 60 (>60) 05/27/19 04:41 Glucose 102 mg/dL (75-110) 05/27/19 04:41 POC Glucose 263 mg/dL (70-110) H 05/29/19 10:32 Hemoglobin A1c % 9.5 % (4.7-6.0) H 05/25/19 05:01 Lactic Acid 1.0 mmol/L (0.7-2.1) 05/25/19 16:59 Calcium 8.7 mg/dL (8.4-10.2) 05/27/19 04:41 Magnesium 1.8 mg/dL (1.6-2.3) 05/25/19 05:01 Total Bilirubin 0.7 mg/dL (0.2-1.3) 05/24/19 14:16 Direct Bilirubin 0.2 mg/dL (0.0-0.4) 05/24/19 14:16 Neonat Total Bilirubin Not Reportable 05/24/19 14:16 Neonat Direct Bilirubin Not Reportable 05/24/19 14:16 Neonat Indirect Bili Not Reportable 05/24/19 14:16 AST 21 U/L (17-59) 05/24/19 14:16 ALT 23 U/L (<50) 05/24/19 14:16 Alkaline Phosphatase 71 U/L (38-126) 05/24/19 14:16 CK-MB (CK-2) 0.57 ng/mL (<4.55) 05/25/19 16:59 Troponin I < 0.012 ng/mL 05/25/19 16:59 Total Protein 7.0 g/dL (6.3-8.2) 05/24/19 14:16 Albumin 4.0 g/dL (3.5-5.0) 05/24/19 14:16 Triglycerides 97 mg/dL (<150) 05/27/19 04:41 Cholesterol 180.08 mg/dL (0-200) 05/27/19 04:41 LDL Cholesterol Direct 111 mg/dL (<100) H 05/27/19 04:41 VLDL Cholesterol 19.0 mg/dL (10-31) 05/27/19 04:41 HDL Cholesterol 53 mg/dL (>40) 05/27/19 04:41 Lipase 141.9 U/L (23-300) 05/29/19 06:40 Urine Color STRAW 05/24/19 16:50 Urine Appearance CLEAR 05/24/19 16:50 Urine pH 5.0 (5.0-9.0) 05/24/19 16:50 Ur Specific [place] 1.027 05/24/19 16:50 Urine Protein NEGATIVE mg/dL (NEGATIVE) 05/24/19 16:50 Urine Glucose (UA) >=500 mg/dL (NEGATIVE) H 05/24/19 16:50 Urine Ketones NEGATIVE mg/dL (NEGATIVE) 05/24/19 16:50 Urine Blood NEGATIVE (NEGATIVE) 05/24/19 16:50 Urine Nitrite (Reflex) NEGATIVE (NEGATIVE) 05/24/19 16:50 Urine Bilirubin NEGATIVE (NEGATIVE) 05/24/19 16:50 Urine Urobilinogen NEGATIVE mg/dL (<2.0) 05/24/19 16:50 Leukocyte Esterase Rfl NEGATIVE (NEGATIVE) 05/24/19 16:50 Urine RBC (Auto) 1 /HPF 05/24/19 16:50 Urine WBC (Reflex) 1 /HPF 05/24/19 16:50 Urine Ascorbic Acid NEGATIVE (NEGATIVE) 05/24/19 16:50 05/24/19 05/24/19 05/25/19 14:16 19:01 16:59 CK-MB (CK-2) 0.78 0.57 Troponin I < 0.012 < 0.012 < 0.012 Impressions: Chest X-Ray 05/24/19 14:52 IMPRESSION: NO ACUTE RADIOGRAPHIC FINDING IN THE CHEST. Chest CT 05/24/19 16:12 IMPRESSION: No acute intrathoracic findings. IMPRESSION: No acute intra-abdominal/intrapelvic findings. Minimal colonic diverticulosis without evidence of acute diverticulitis. Abdomen/Pelvis CT 05/24/19 16:13 IMPRESSION: No acute intrathoracic findings. IMPRESSION: No acute intra-abdominal/intrapelvic findings. Minimal colonic diverticulosis without evidence of acute diverticulitis. Abdomen CT 05/27/19 00:00 IMPRESSION: COLONIC DIVERTICULOSIS. NO FINDINGS OF DIVERTICULITIS. NO SIGNIFICANT OR ACUTE PROCESS IN THE ABDOMEN OR PELVIS. Shoulder X-Ray 05/29/19 13:27 IMPRESSION: NEGATIVE STUDY OF THE LEFT SHOULDER. NO RADIOGRAPHIC EVIDENCE OF ACUTE INJURY. Stroke Is this a Stroke Patient?: No Acute Heart Failure - Is this a Heart Failure Patient?: No
== END 2019-05-29 16:21 | disposition home or self-care (01) | DRG 439 ==
LOC: ER 14:05 → EH 19:49 → INTOOBSV 19:49 → OBSVTOIN 19:49 → 4W 21:03 → OBSVTOIN 05-27 15:59
PROVIDERS: ADMIT Hospitalist; ATTEND Hospitalist
DX: K85.90 Acute pancreatitis without necrosis or infection, unspecified (principal); E87.2 Acidosis; R07.89 Other chest pain; I10 Essential (primary) hypertension; E78.5 Hyperlipidemia, unspecified; K21.9 Gastro-esophageal reflux disease without esophagitis; F31.9 Bipolar disorder, unspecified; D64.9 Anemia, unspecified; E11.65 Type 2 diabetes mellitus with hyperglycemia; I25.119 Atherosclerotic heart disease of native coronary artery with unspecified angina pectoris; F17.210 Nicotine dependence, cigarettes, uncomplicated; I25.2 Old myocardial infarction; Z79.899 Other long term (current) drug therapy; Z86.718 Personal history of other venous thrombosis and embolism; Z87.820 Personal history of traumatic brain injury; Z88.8 Allergy status to other drugs, medicaments and biological substances; Z79.4 Long term (current) use of insulin; Z82.49 Family history of ischemic heart disease and other diseases of the circulatory system; Z91.14 Patient's other noncompliance with medication regimen
CPT/HCPCS: 36415; 71045; 71260; 74150; 74177; 80048; 80053; 80061; 81001; 82553; 82803; 82962; 83036; 83605; 83690; 83735; 84484; 85025; 85610; 93005; 93010; 96361; 96374; 96375; 99285; G0378; J1170; J1815; J1885; J2270; J2405; J3360; J3490; J7030; J7060; J7120

== ENCOUNTER 2019-08-17 14:18 | Emergency (ER) | payer MEDICARE, MEDICAID ==
[2019-08-17] MEDS ORDERED: RINGERS SOLUTION,LACTATED 1,000 ML IV ONE (14:59)
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
[2019-08-17 15:28] LABS: ABSOLUTE BASOPHILS # (AUTO) 0.1 10^3/uL (0.0-0.2); ABSOLUTE EOSINOPHILS # (AUTO) 0.1 10^3/uL (0.0-0.6); ABSOLUTE LYMPHOCYTES (AUTO) 2.6 10^3/uL (0.5-4.7); ABSOLUTE MONOCYTES (AUTO) 0.7 10^3/uL (0.1-1.4); ABSOLUTE NEUT (AUTO) 6.8 10^3/uL (1.7-8.2); BASOPHILS % (AUTO) 0.8 % (0-2); EOSINOPHILS % (AUTO) 1.3 % (0-6); HEMATOCRIT 43.2 % (37.9-51.0); HEMOGLOBIN 15.5 g/dL (13.5-17.0); LYMPHOCYTES % (AUTO) 25.1 % (13-45); MEAN CORPUSCULAR HEMOGLOBIN 30.4 pg (27.0-33.4); MEAN CORPUSCULAR HGB CONC 35.9 g/dL (32.0-36.0); MEAN CORPUSCULAR VOLUME 85 fl (80-97); MONOCYTES % (AUTO) 6.5 % (3-13); PLATELET COUNT 167 10^3/uL (150-450); RED BLOOD COUNT 5.09 10^6/uL (4.35-5.55); RED CELL DISTRIBUTION WIDTH 13.5 % (11.5-14.0); SEGMENTED NEUTROPHILS % (AUTO) 66.3 % (42-78); TOTAL CELLS COUNTED % (AUTO) 100 %; WHITE BLOOD COUNT 10.3 10^3/uL (4.0-10.5)
[2019-08-17 15:43] LABS: ALBUMIN 4.3 g/dL (3.5-5.0); ALKALINE PHOSPHATASE 82 U/L (38-126); ANION GAP 9 (5-19); ASPARTATE AMINO TRANSFERASE 26 U/L (17-59); BILIRUBIN,TOTAL 0.7 mg/dL (0.2-1.3); BLOOD UREA NITROGEN 16 mg/dL (7-20); CALCIUM 9.8 mg/dL (8.4-10.2); CARBON DIOXIDE 25 mmol/L (22-30); CHLORIDE 98 mmol/L (98-107); CREATINE KINASE 36 U/L (55-170); GLUCOSE 398 mg/dL (75-110); POTASSIUM 4.3 mmol/L (3.6-5.0); TOTAL PROTEIN 7.4 g/dL (6.3-8.2)
--- NOTE | 2019-08-17 15:43 | RADIOLOGY REPORT (SQ) ---
EXAM DESCRIPTION: CHEST 2 VIEWS IMAGES COMPLETED DATE/TIME: 08/17/2019 3:32 pm REASON FOR STUDY: chest pain COMPARISON: 05/24/2019 EXAM PARAMETERS: NUMBER OF VIEWS: two views TECHNIQUE: Digital Frontal and Lateral radiographic views of the chest acquired. RADIATION DOSE: NA LIMITATIONS: none FINDINGS: LUNGS AND PLEURA: No opacities, masses or pneumothorax. No pleural effusion. MEDIASTINUM AND HILAR STRUCTURES: No masses or contour abnormalities. HEART AND VASCULAR STRUCTURES: Heart normal size. No evidence for failure. BONES: No acute findings. HARDWARE: None in the chest. OTHER: No other significant finding. IMPRESSION: NO ACUTE RADIOGRAPHIC FINDING IN THE CHEST. TECHNICAL DOCUMENTATION: JOB ID: [id number] 2010 [employer]- All Rights Reserved Reading location - IP/workstation name: [email or web address]
[2019-08-17] MEDS ORDERED: MORPHINE SULFATE 10 MG/ML INJ IV ONE (15:53)
[2019-08-17] MEDS ORDERED: ONDANSETRON HCL INJ/PF 4 MG/2 ML SDV IV ONE ×2 (15:53→17:29)
[2019-08-17 16:01] LABS: CREATINE KINASE MB 0.77 ng/mL (<4.55)
[2019-08-17 16:02] LABS: TROPONIN I < 0.012 ng/mL
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
[2019-08-17] MEDS ORDERED: KETOROLAC TROMETHAMINE INJ/PF 30 MG/1 ML SDV IV ONE (17:29)
--- NOTE | 2019-08-17 19:50 | RADIOLOGY REPORT (SQ) ---
EXAM DESCRIPTION: CT ABD/PELVIS WITH IV ONLY IMAGES COMPLETED DATE/TIME: 08/17/2019 7:34 pm REASON FOR STUDY: Severe upper abdominal pain COMPARISON: 05/24/2019 TECHNIQUE: CT scan of the abdomen and pelvis performed using helical scanning technique with dynamic intravenous contrast injection. No oral contrast. Images reviewed with lung, soft tissue, and bone windows. Reconstructed coronal and sagittal MPR images reviewed. Delayed images for evaluation of the urinary system also acquired. All images stored on PACS. All CT scanners at this facility use dose modulation, iterative reconstruction, and/or weight based d osing when appropriate to reduce radiation dose to as low as reasonably achievable (ALARA). [facility]: Dose Right [facility]: CareDose [facility]: Dose Right [facility]: Teradose 4D [facility]: [employer] CONTRAST TYPE AND DOSE: contrast/concentration: Isovue 350.00 mg/ml; Total Contrast Delivered: 94.0 ml; Total Saline Delivered: 71.0 ml RENAL FUNCTION: BUN 16 creatinine 0.63 RADIATION DOSE: CT Rad equipment meets quality standard of care and radiation dose reduction techniq ues were employed. CTDIvol: 8.6 - 12.1 mGy. DLP: 1711 mGy-cm.. LIMITATIONS: None. FINDINGS: LOWER CHEST: No significant findings. No nodules or infiltrates. LIVER: Normal size. No masses. No dilated ducts. SPLEEN: Normal size. No focal lesions. PANCREAS: No masses. No significant calcifications. No adjacent inflammation or peripancreatic fluid collections. Pancreatic duct not dilated. GALLBLADDER: Surgically absent. ADRENAL GLANDS: No significant masses or asymmetry. RIGHT KIDNEY AND URETER: No solid masses. No significant calcifications. No hydronephrosis or hyd roureter. LEFT KIDNEY AND URETER: No solid masses. No significant calcifications. No hydronephrosis or hydr oureter. AORTA AND VESSELS: No aneurysm. No dissection. Renal arteries, SMA, celiac without stenosis. RETROPERITONEUM: No retroperitoneal adenopathy, hemorrhage or masses. BOWEL AND PERITONEAL CAVITY: Sigmoid diverticulosis with no associated inflammation. No obvious kaila l mass. APPENDIX: Normal. PELVIS: No mass. No free fluid. Normal bladder. ABDOMINAL WALL: No masses. No hernias. BONES: No significant or acute findings. OTHER: No other significant finding. IMPRESSION: Diverticulosis coli with no evidence of acute inflammation. No acute or significant fin ding in the abdomen or pelvis. TECHNICAL DOCUMENTATION: JOB ID: [id number] Quality ID # [id number]: Final reports with documentation of one or more dose reduction techniques (e.g., Au tomated exposure control, adjustment of the mA and/or kV according to patient size, use of iterative reconstruction technique) 2010 [employer]- All Rights Reserved Reading location - IP/workstation name: [email or web address]
[2019-08-17] MEDS ORDERED: HYDROCODONE/ACETAMINOPHEN 5-325 MG (6 TAB/ER DISP) PO PRN (21:04)
[2019-08-17] MEDS ORDERED: ONDANSETRON ODT 4 MG TAB (6 TAB/ER DISP) PO PRN (21:04)
[2019-08-17 21:28] VITALS: BP 136/94
--- NOTE | 2019-08-19 22:29 | EKG REPORT ---
SEVERITY:- ABNORMAL ECG - SINUS TACHYCARDIA RIGHT BUNDLE BRANCH BLOCK : Confirmed by: Annie Bernstein MD 19-Aug-2019 22:28:59
== END 2019-08-17 21:50 | disposition home or self-care (01) ==
LOC: ER 14:18
DX: R10.13 Epigastric pain (principal); R51 Headache; R07.9 Chest pain, unspecified; R10.10 Upper abdominal pain, unspecified; M54.9 Dorsalgia, unspecified; R53.83 Other fatigue; E11.9 Type 2 diabetes mellitus without complications; I25.2 Old myocardial infarction; Z88.8 Allergy status to other drugs, medicaments and biological substances; I25.10 Atherosclerotic heart disease of native coronary artery without angina pectoris; I11.0 Hypertensive heart disease with heart failure; J44.9 Chronic obstructive pulmonary disease, unspecified
CPT/HCPCS: 96376; 99284; 96361; 96374; 96375; 36415; 82553; 82550; 83690; 85025; 80053; 84484; 71046; 74177; J1885; J2270; J2405; J7120; A9270 ×2; 93005; 93010

== ENCOUNTER 2019-08-19 22:05 | Observation (INO) | payer MEDICARE, MEDICAID ==
[2019-08-19] MEDS ORDERED: NORMAL SALINE 1000 ML 1,000 ML IV ONE ×2 (22:38→23:41)
[2019-08-19 22:46] LABS: ABSOLUTE BASOPHILS # (AUTO) 0.1 10^3/uL (0.0-0.2); ABSOLUTE EOSINOPHILS # (AUTO) 0.1 10^3/uL (0.0-0.6); ABSOLUTE MONOCYTES (AUTO) 0.8 10^3/uL (0.1-1.4); ABSOLUTE NEUT (AUTO) 5.9 10^3/uL (1.7-8.2); BASOPHILS % (AUTO) 0.7 % (0-2); EOSINOPHILS % (AUTO) 1.2 % (0-6); HEMATOCRIT 48.1 % (37.9-51.0); HEMOGLOBIN 16.7 g/dL (13.5-17.0); LYMPHOCYTES % (AUTO) 22.8 % (13-45); MEAN CORPUSCULAR HEMOGLOBIN 30.9 pg (27.0-33.4); MEAN CORPUSCULAR HGB CONC 34.6 g/dL (32.0-36.0); MONOCYTES % (AUTO) 8.6 % (3-13); PLATELET COUNT 163 10^3/uL (150-450); RED CELL DISTRIBUTION WIDTH 13.8 % (11.5-14.0); SEGMENTED NEUTROPHILS % (AUTO) 66.7 % (42-78); TOTAL CELLS COUNTED % (AUTO) 100 %; WHITE BLOOD COUNT 8.9 10^3/uL (4.0-10.5)
[2019-08-19 22:47] LABS: MEAN CORPUSCULAR VOLUME 89 fl (80-97)
[2019-08-19 23:01] LABS: ALBUMIN 4.4 g/dL (3.5-5.0); ALKALINE PHOSPHATASE 82 U/L (38-126); ANION GAP 16 (5-19); ASPARTATE AMINO TRANSFERASE 29 U/L (17-59); BILIRUBIN,TOTAL 0.8 mg/dL (0.2-1.3); BLOOD UREA NITROGEN 19 mg/dL (7-20); CARBON DIOXIDE 23 mmol/L (22-30); CHLORIDE 90 mmol/L (98-107); POTASSIUM 4.9 mmol/L (3.6-5.0); TOTAL PROTEIN 7.4 g/dL (6.3-8.2)
[2019-08-19 23:18] LABS: GLUCOSE 733 mg/dL (75-110)
[2019-08-19 23:21] LABS: APPEARANCE,URINE CLEAR; BILIRUBIN,URINE NEGATIVE (NEGATIVE); COLOR,URINE COLORLESS; GLUCOSE, URINE >=500 mg/dL (NEGATIVE); KETONES,URINE TRACE mg/dL (NEGATIVE); LEUKOCYTE ESTERASE,URINE NEGATIVE (NEGATIVE); NITRITE,URINE NEGATIVE (NEGATIVE); PROTEIN,URINE NEGATIVE (NEGATIVE); URINE SPECIFIC GRAVITY 1.026; UROBILINOGEN,URINE NEGATIVE mg/dL (<2.0)
--- NOTE | 2019-08-19 23:21 | RADIOLOGY REPORT (SQ) ---
EXAM DESCRIPTION: XR CHEST 1 VIEW COMPLETED DATE/TME: 08/19/2019 22:37 CLINICAL HISTORY: 59 years Male, chest pain COMPARISON: Same day. NUMBER OF VIEWS/TECHNIQUE: 1/AP FINDINGS: Clear lung bolivar. Normal cardiac silhouette size. No pneumothorax. Stable bony thorax. IMPRESSION: No significant change.
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
[2019-08-19] MEDS ORDERED: INSULIN REG, HUMAN 100 UNIT/ML 3 ML VIAL (PYX) IV ONE (23:36)
[2019-08-20] MEDS ORDERED: FENTANYL CITRATE INJ/PF 100 MCG/2 ML AMPUL IV ONE ×2 (00:06→01:12)
[2019-08-20] MEDS ORDERED: METOCLOPRAMIDE HCL ORAL SOLN 10 MG/10 ML UDCUP PO ONE (01:30)
[2019-08-20] MEDS ORDERED: MAG HYDROX/AL HYDROX/SIMETH SUSP 30 ML UDCUP PO ONE (01:30)
[2019-08-20] MEDS ORDERED: LIDOCAINE 2% VISCOUS SOLN 15 ML UDCUP PO ONE (01:30)
[2019-08-20 01:37] LABS: ARTERIAL BLOOD BASE EXCESS 1.2 mmol/L; ARTERIAL BLOOD H2CO3 1.48 mmol/L (1.05-1.35); ARTERIAL BLOOD HCO3 27.4 mmol/L (20-24); ARTERIAL BLOOD O2 SATURATION 94.2 % (94-98); ARTERIAL BLOOD PCO2 49.3 mmHg (35-45); ARTERIAL BLOOD PH 7.36 (7.35-7.45); ARTERIAL BLOOD PO2 73.9 mmHg (80-100); ARTERIAL BLOOD TOTAL CO2 28.9 mmol/L (23-27)
[2019-08-20 01:38] LABS: ARTERIAL BLOOD FIO2 ROOM AIR
[2019-08-20] MEDS ORDERED: NORMAL SALINE 1000 ML 1,000 ML IV ONE ×2 (01:40→03:23)
[2019-08-20] MEDS ORDERED: INSULIN REG, HUMAN 100 UNIT/ML 3 ML VIAL (PYX) SUBCUT ONE (03:22)
[2019-08-20] MEDS ORDERED: NORMAL SALINE 100 ML with INSULIN REGULAR, HUMAN 100 UNIT IV PRN ×2 (03:49)
[2019-08-20] MEDS ORDERED: INSULIN REG, HUMAN 100 UNIT/ML 3 ML VIAL (PYX) ONE (04:01)
--- NOTE | 2019-08-20 04:49 | RADIOLOGY REPORT (SQ) ---
EXAM DESCRIPTION: CT HEAD WITHOUT IV CONTRAST COMPLETED DATE/TME: 08/20/2019 03:44 CLINICAL HISTORY: 59 years, Male, worsening headache COMPARISON: 02/01/2019 TECHNIQUE: Axial CT images of the brain were obtained without contrast. Sagittal and coronal reformats were performed. DLP 990 Images stored on PACS. All CT scanners at this facility use dose modulation, iterative reconstruction, and/or weight based dosing when appropriate to reduce radiation dose to as low as reasonably achievable (ALARA). [facility]: Dose Right [facility]: CareDose [facility]: Dose Right [facility]: Teradose 4D [facility]: [employer] LIMITATIONS: None. FINDINGS: There is no acute cortical infarct, hemorrhage, mass, edema, hydrocephalus, or extra-axial fluid collection. The tang-white matter differentiation is preserved. Brain volume is age-appropriate. The paranasal sinuses and mastoid air cells are clear. There is no acute fracture. IMPRESSION: No acute intracranial abnormality. TECHNICAL DOCUMENTATION: Quality ID # [id number]: Final reports with documentation of one or more dose reduction techniques (e.g., Automated exposure control, adjustment of the mA and/or kV according to patient size, use of iterative reconstruction technique) copyright 2010 [employer]- All Rights Reserved
[2019-08-20] MEDS ORDERED: DEXTROSE 40% GEL 15 GM TUBE PO PRN ×3 (05:28→13:42)
[2019-08-20] MEDS ORDERED: MAG HYDROX/AL HYDROX/SIMETH SUSP 30 ML UDCUP PO PRN (05:28)
[2019-08-20] MEDS ORDERED: DEXTROSE 50%-WATER 25 GM/50 ML DISP.SYRIN IV PRN ×2 (05:28)
[2019-08-20] MEDS ORDERED: GLUCAGON,HUMAN RECOMB 1 MG INJ IM PRN (05:28)
[2019-08-20] MEDS ORDERED: IPRATROPIUM/ALBUTEROL 0.5-2.5 MG/3 ML AMPUL NEB PRN (05:28)
[2019-08-20] MEDS ORDERED: ONDANSETRON HCL INJ/PF 4 MG/2 ML SDV IV PRN ×2 (05:28→14:30)
[2019-08-20] MEDS ORDERED: NORMAL SALINE 1000 ML 1,000 ML IV SCH (05:30)
[2019-08-20] MEDS ORDERED: HUM INSULIN NPH/REG INSULIN HM 100 UNIT/1 ML 3 ML SUBCUT ONE (05:31)
[2019-08-20] MEDS: ACETAMINOPHEN 325 MG TABLET PO PRN ×2 (05:47→20:26)
[2019-08-20] MEDS: HEPARIN SOD (PORCINE) 5,000 UNIT/ML 1 ML VIAL SUBCUT SCH ×3 (05:48→21:51)
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
[2019-08-20 07:12] LABS: ANION GAP 7 (5-19); BLOOD UREA NITROGEN 14 mg/dL (7-20); CALCIUM 8.2 mg/dL (8.4-10.2); CARBON DIOXIDE 21 mmol/L (22-30); CHLORIDE 105 mmol/L (98-107); GLUCOSE 269 mg/dL (75-110)
[2019-08-20] MEDS: HUM INSULIN NPH/REG INSULIN HM 100 UNIT/1 ML 3 ML SUBCUT SCH ×2 (10:04→17:03)
[2019-08-20] MEDS ORDERED: BUTALB/ACETAMINOPHEN/CAFFEINE 1 TAB EACH PO ONE (12:00)
[2019-08-20] MEDS ORDERED: KETOROLAC TROMETHAMINE INJ/PF 30 MG/1 ML SDV IV ONE (14:30)
[2019-08-20] MEDS ORDERED: DIPHENHYDRAMINE HCL 50 MG/ML VIAL IV ONE (14:30)
[2019-08-20] MEDS ORDERED: METOCLOPRAMIDE HCL INJ/PF 10 MG/2 ML SDV IV ONE (14:30)
[2019-08-20] MEDS: INSULIN LISPRO 100 UNIT/ML 3 ML VIAL SUBCUT SCH ×2 (17:03→21:51)
[2019-08-21] MEDS: ACETAMINOPHEN 325 MG TABLET PO PRN (03:58)
[2019-08-21] MEDS ORDERED: IBUPROFEN 400 MG TABLET ONE (04:22)
[2019-08-21] MEDS ORDERED: IBUPROFEN 400 MG TABLET PO PRN (04:31)
[2019-08-21] MEDS: HEPARIN SOD (PORCINE) 5,000 UNIT/ML 1 ML VIAL SUBCUT SCH ×3 (05:20→21:44)
[2019-08-21 05:56] LABS: ABSOLUTE BASOPHILS # (AUTO) 0.1 10^3/uL (0.0-0.2); ABSOLUTE EOSINOPHILS # (AUTO) 0.3 10^3/uL (0.0-0.6); ABSOLUTE LYMPHOCYTES (AUTO) 2.2 10^3/uL (0.5-4.7); ABSOLUTE MONOCYTES (AUTO) 0.6 10^3/uL (0.1-1.4); ABSOLUTE NEUT (AUTO) 5.2 10^3/uL (1.7-8.2); BASOPHILS % (AUTO) 0.7 % (0-2); EOSINOPHILS % (AUTO) 3.5 % (0-6); HEMATOCRIT 38.8 % (37.9-51.0); LYMPHOCYTES % (AUTO) 26.3 % (13-45); MEAN CORPUSCULAR HEMOGLOBIN 30.5 pg (27.0-33.4); MEAN CORPUSCULAR HGB CONC 35.9 g/dL (32.0-36.0); MONOCYTES % (AUTO) 6.8 % (3-13); PLATELET COUNT 129 10^3/uL (150-450); RED BLOOD COUNT 4.57 10^6/uL (4.35-5.55); RED CELL DISTRIBUTION WIDTH 13.9 % (11.5-14.0); SEGMENTED NEUTROPHILS % (AUTO) 62.7 % (42-78); TOTAL CELLS COUNTED % (AUTO) 100 %; WHITE BLOOD COUNT 8.2 10^3/uL (4.0-10.5)
[2019-08-21 06:01] LABS: HEMOGLOBIN 13.9 g/dL (13.5-17.0)
[2019-08-21 06:02] LABS: MEAN CORPUSCULAR VOLUME 85 fl (80-97)
[2019-08-21 06:05] LABS: BLOOD UREA NITROGEN 15 mg/dL (7-20); CALCIUM 8.6 mg/dL (8.4-10.2); CHOLESTEROL 180.11 mg/dL (0-200); GLUCOSE 245 mg/dL (75-110); POTASSIUM 4.3 mmol/L (3.6-5.0); TRIGLYCERIDES 290 mg/dL (<150)
[2019-08-21 06:09] LABS: CARBON DIOXIDE 29 mmol/L (22-30); CHLORIDE 104 mmol/L (98-107)
[2019-08-21 06:15] LABS: DIRECT LDL 95 mg/dL (<100)
[2019-08-21 06:19] LABS: ANION GAP 4 (5-19)
[2019-08-21] MEDS: HUM INSULIN NPH/REG INSULIN HM 100 UNIT/1 ML 3 ML SUBCUT SCH ×2 (08:21→18:21)
[2019-08-21] MEDS: INSULIN LISPRO 100 UNIT/ML 3 ML VIAL SUBCUT SCH ×4 (08:21→21:56)
[2019-08-21] MEDS ORDERED: DIPHENHYDRAMINE HCL 50 MG/ML VIAL IV ONE (08:38)
[2019-08-21] MEDS ORDERED: NAPROXEN 375 MG TABLET PO PRN (08:40)
[2019-08-21] MEDS ORDERED: METOCLOPRAMIDE HCL INJ/PF 10 MG/2 ML SDV IV ONE (09:00)
[2019-08-21] MEDS ORDERED: HUM INSULIN NPH/REG INSULIN HM 100 UNIT/1 ML 3 ML SUBCUT ONE (09:00)
[2019-08-21] MEDS ORDERED: KETOROLAC TROMETHAMINE INJ/PF 30 MG/1 ML SDV IV ONE (09:00)
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
[2019-08-21] MEDS: BUTALB/ACETAMINOPHEN/CAFFEINE 1 TAB EACH PO PRN ×2 (14:52→21:44)
[2019-08-21] MEDS: KETOROLAC TROMETHAMINE INJ/PF 30 MG/1 ML SDV IV PRN (18:47)
--- NOTE | 2019-08-21 18:51 | EKG REPORT ---
SEVERITY:- ABNORMAL ECG - SINUS RHYTHM RIGHT BUNDLE BRANCH BLOCK : Confirmed by: Annie Bernstein MD 21-Aug-2019 18:49:41
[2019-08-22] MEDS: KETOROLAC TROMETHAMINE INJ/PF 30 MG/1 ML SDV IV PRN ×2 (03:59→11:14)
[2019-08-22] MEDS: HEPARIN SOD (PORCINE) 5,000 UNIT/ML 1 ML VIAL SUBCUT SCH (05:17)
[2019-08-22] MEDS: BUTALB/ACETAMINOPHEN/CAFFEINE 1 TAB EACH PO PRN (07:48)
[2019-08-22] MEDS: INSULIN LISPRO 100 UNIT/ML 3 ML VIAL SUBCUT SCH ×2 (07:50→11:20)
[2019-08-22] MEDS: HUM INSULIN NPH/REG INSULIN HM 100 UNIT/1 ML 3 ML SUBCUT SCH (07:50)
[2019-08-22 12:13] VITALS: BP 124/65
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
== END 2019-08-22 13:12 | disposition home or self-care (01) ==
LOC: ER 22:05 → EH 08-20 05:32 → 3N 08-20 07:55 → 4S 08-20 18:50
PROVIDERS: ADMIT Internal Medicine; ATTEND Internal Medicine
DX: R51 Headache (principal); T14.90XS Injury, unspecified, sequela; V89.2XXS Person injured in unspecified motor-vehicle accident, traffic, sequela; E11.65 Type 2 diabetes mellitus with hyperglycemia; R07.9 Chest pain, unspecified; I25.10 Atherosclerotic heart disease of native coronary artery without angina pectoris; M47.892 Other spondylosis, cervical region; F17.200 Nicotine dependence, unspecified, uncomplicated; R20.2 Paresthesia of skin; R10.13 Epigastric pain; Z18.10 Retained metal fragments, unspecified; R20.0 Anesthesia of skin; I45.10 Unspecified right bundle-branch block; R00.0 Tachycardia, unspecified; J44.9 Chronic obstructive pulmonary disease, unspecified; I25.2 Old myocardial infarction; Z91.14 Patient's other noncompliance with medication regimen; Z86.718 Personal history of other venous thrombosis and embolism; Z87.828 Personal history of other (healed) physical injury and trauma; Z82.49 Family history of ischemic heart disease and other diseases of the circulatory system; Z87.820 Personal history of traumatic brain injury; Z87.11 Personal history of peptic ulcer disease; Z87.19 Personal history of other diseases of the digestive system
CPT/HCPCS: 96376; 99285; 96361; 96374; 36415 ×3; 82962 ×3; 82803; 83690; 84443; 85025 ×2; 80048 ×2; 80053; 81001; 84484 ×2; 83036; 80061; 71045; 70450; 93005; 93010; 36600; 94640; A9270 ×17; J1644 ×3; J1200 ×2; J3010; J3490; J1885 ×3; J2765 ×2; J2405; J7030 ×2; J1815; J7620

== ENCOUNTER 2019-08-28 22:00 | Emergency (ER) | payer MEDICARE, MEDICAID ==
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
[2019-08-28] MEDS ORDERED: ONDANSETRON HCL INJ/PF 4 MG/2 ML SDV IV ONE (23:34)
[2019-08-28] MEDS ORDERED: HYDROMORPHONE HCL INJ/PF 2 MG/ML AMPULE IV ONE (23:34)
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
[2019-08-29] MEDS ORDERED: HYDROMORPHONE HCL INJ/PF 2 MG/ML AMPULE IV ONE (00:24)
[2019-08-29] MEDS ORDERED: HYDROCODONE/ACETAMINOPHEN 5-325 MG (6 TAB/ER DISP) PO PRN (00:24)
[2019-08-29 01:49] VITALS: BP 128/80
== END 2019-08-29 02:10 | disposition home or self-care (01) ==
LOC: ER 22:00
DX: S42.022A Displaced fracture of shaft of left clavicle, initial encounter for closed fracture (principal); M25.512 Pain in left shoulder; W19.XXXA Unspecified fall, initial encounter; F17.210 Nicotine dependence, cigarettes, uncomplicated; Z88.8 Allergy status to other drugs, medicaments and biological substances; I25.10 Atherosclerotic heart disease of native coronary artery without angina pectoris; I25.2 Old myocardial infarction; I10 Essential (primary) hypertension; J44.9 Chronic obstructive pulmonary disease, unspecified; E11.9 Type 2 diabetes mellitus without complications
CPT/HCPCS: 96376; 99283; 96374; 96375; 73000; 73030; J1170 ×2; J2405; A9270

== ENCOUNTER 2019-08-30 15:20 | Emergency (ER) | payer MEDICARE, MEDICAID ==
[2019-08-30] MEDS ORDERED: KETOROLAC TROMETHAMINE 60 MG/2 ML SDV IM ONE (15:36)
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
[2019-08-30] MEDS ORDERED: OXYCODONE-ACETAMINOPHEN 5-325 MG TABLET PO ONE (15:37)
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
[2019-08-30 17:00] VITALS: BP 115/66
== END 2019-08-30 17:04 | disposition home or self-care (01) ==
LOC: ER 15:20
DX: S42.002A Fracture of unspecified part of left clavicle, initial encounter for closed fracture (principal); M25.512 Pain in left shoulder; W19.XXXA Unspecified fall, initial encounter; F17.200 Nicotine dependence, unspecified, uncomplicated; I25.10 Atherosclerotic heart disease of native coronary artery without angina pectoris; I10 Essential (primary) hypertension; I25.2 Old myocardial infarction; J44.9 Chronic obstructive pulmonary disease, unspecified; E11.9 Type 2 diabetes mellitus without complications
CPT/HCPCS: 99283; 96372; J1885; A9270

== ENCOUNTER 2019-09-04 11:01 | Emergency (ER) | payer MEDICARE, MEDICAID ==
[2019-09-04 11:12] VITALS: BP 122/80
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
== END 2019-09-04 11:38 | disposition home or self-care (01) ==
LOC: ER 11:01
DX: L03.113 Cellulitis of right upper limb (principal); S50.861A Insect bite (nonvenomous) of right forearm, initial encounter; W57.XXXA Bitten or stung by nonvenomous insect and other nonvenomous arthropods, initial encounter; E11.9 Type 2 diabetes mellitus without complications; J44.9 Chronic obstructive pulmonary disease, unspecified; I25.10 Atherosclerotic heart disease of native coronary artery without angina pectoris; I10 Essential (primary) hypertension; F17.210 Nicotine dependence, cigarettes, uncomplicated
CPT/HCPCS: 99281

== ENCOUNTER 2019-09-08 23:33 | Emergency (ER) | payer MEDICARE, MEDICAID ==
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
[2019-09-08] MEDS ORDERED: NORMAL SALINE 1000 ML 1,000 ML IV ONE (23:54)
[2019-09-09 00:56] LABS: ABSOLUTE BASOPHILS # (AUTO) 0.1 10^3/uL (0.0-0.2); ABSOLUTE EOSINOPHILS # (AUTO) 0.1 10^3/uL (0.0-0.6); ABSOLUTE LYMPHOCYTES (AUTO) 1.7 10^3/uL (0.5-4.7); ABSOLUTE MONOCYTES (AUTO) 0.7 10^3/uL (0.1-1.4); ABSOLUTE NEUT (AUTO) 4.9 10^3/uL (1.7-8.2); BASOPHILS % (AUTO) 1.1 % (0-2); EOSINOPHILS % (AUTO) 1.1 % (0-6); HEMATOCRIT 42.4 % (37.9-51.0); HEMOGLOBIN 14.5 g/dL (13.5-17.0); MEAN CORPUSCULAR HEMOGLOBIN 30.5 pg (27.0-33.4); MEAN CORPUSCULAR HGB CONC 34.2 g/dL (32.0-36.0); MONOCYTES % (AUTO) 9.8 % (3-13); PLATELET COUNT 193 10^3/uL (150-450); RED BLOOD COUNT 4.76 10^6/uL (4.35-5.55); RED CELL DISTRIBUTION WIDTH 13.9 % (11.5-14.0); TOTAL CELLS COUNTED % (AUTO) 100 %; WHITE BLOOD COUNT 7.5 10^3/uL (4.0-10.5)
[2019-09-09 01:03] LABS: INTERNATIONAL RATION (INR) 0.89; PARTIAL THROMBOPLASTIN TIME 24.7 SEC (23.5-35.8)
[2019-09-09] MEDS ORDERED: ACETAMINOPHEN 650 MG SUPP.RECT PR ONE (01:19)
[2019-09-09] MEDS ORDERED: ONDANSETRON HCL INJ/PF 4 MG/2 ML SDV IV ONE (01:19)
[2019-09-09 01:21] LABS: ALBUMIN 4.2 g/dL (3.5-5.0); ALKALINE PHOSPHATASE 85 U/L (38-126); ANION GAP 16 (5-19); ASPARTATE AMINO TRANSFERASE 27 U/L (17-59); BILIRUBIN,TOTAL 0.8 mg/dL (0.2-1.3); BLOOD UREA NITROGEN 17 mg/dL (7-20); CARBON DIOXIDE 24 mmol/L (22-30); CHLORIDE 89 mmol/L (98-107); POTASSIUM 5.2 mmol/L (3.6-5.0); TOTAL PROTEIN 7.1 g/dL (6.3-8.2)
[2019-09-09 01:25] LABS: ALCOHOL < 10 mg/dL (NONE DETECTED)
[2019-09-09 01:32] LABS: MEAN CORPUSCULAR VOLUME 89 fl (80-97)
[2019-09-09] MEDS ORDERED: TRAMADOL HCL 50 MG TABLET PO ONE ×2 (01:32→04:34)
[2019-09-09 01:37] LABS: GLUCOSE 798 mg/dL (75-110)
[2019-09-09] MEDS ORDERED: INSULIN LISPRO 100 UNIT/ML 3 ML VIAL SUBCUT ONE (01:45)
[2019-09-09] MEDS: RINGERS SOLUTION,LACTATED 1,000 ML IV PRN ×2 (02:00→04:21)
[2019-09-09 02:34] LABS: APPEARANCE,URINE CLEAR; BILIRUBIN,URINE NEGATIVE (NEGATIVE); COLOR,URINE COLORLESS; GLUCOSE, URINE >=500 mg/dL (NEGATIVE); KETONES,URINE NEGATIVE (NEGATIVE); LEUKOCYTE ESTERASE,URINE NEGATIVE (NEGATIVE); NITRITE,URINE NEGATIVE (NEGATIVE); PROTEIN,URINE NEGATIVE (NEGATIVE); URINE SPECIFIC GRAVITY 1.025; UROBILINOGEN,URINE NEGATIVE mg/dL (<2.0)
[2019-09-09 02:54] LABS: ADD MANUAL MICROSCOPIC YES; RBC,URINE RARE /HPF; WBC,URINE 0-1 /HPF
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
[2019-09-09 04:33] LABS: ABSOLUTE EOSINOPHILS # (AUTO) 0.2 10^3/uL (0.0-0.6); ABSOLUTE LYMPHOCYTES (AUTO) 2.8 10^3/uL (0.5-4.7); ABSOLUTE MONOCYTES (AUTO) 0.8 10^3/uL (0.1-1.4); ABSOLUTE NEUT (AUTO) 4.6 10^3/uL (1.7-8.2); BASOPHILS % (AUTO) 0.3 % (0-2); HEMATOCRIT 38.4 % (37.9-51.0); HEMOGLOBIN 13.7 g/dL (13.5-17.0); LYMPHOCYTES % (AUTO) 33.4 % (13-45); MEAN CORPUSCULAR HEMOGLOBIN 30.5 pg (27.0-33.4); MEAN CORPUSCULAR HGB CONC 35.7 g/dL (32.0-36.0); MONOCYTES % (AUTO) 9.1 % (3-13); PLATELET COUNT 174 10^3/uL (150-450); RED BLOOD COUNT 4.51 10^6/uL (4.35-5.55); RED CELL DISTRIBUTION WIDTH 13.8 % (11.5-14.0); SEGMENTED NEUTROPHILS % (AUTO) 55.2 % (42-78); TOTAL CELLS COUNTED % (AUTO) 100 %; WHITE BLOOD COUNT 8.3 10^3/uL (4.0-10.5)
[2019-09-09 04:48] LABS: ANION GAP 9 (5-19); BLOOD UREA NITROGEN 15 mg/dL (7-20); CALCIUM 9.6 mg/dL (8.4-10.2); CARBON DIOXIDE 28 mmol/L (22-30); CHLORIDE 98 mmol/L (98-107); GLUCOSE 366 mg/dL (75-110)
[2019-09-09 04:53] LABS: MEAN CORPUSCULAR VOLUME 85 fl (80-97)
[2019-09-09 05:03] LABS: POTASSIUM 4.2 mmol/L (3.6-5.0)
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
[2019-09-09 06:29] VITALS: BP 136/86
--- NOTE | 2019-09-09 11:10 | EKG REPORT ---
SEVERITY:- ABNORMAL ECG - SINUS TACHYCARDIA RIGHT BUNDLE BRANCH BLOCK : Confirmed by: Annie Bernstein MD 09-Sep-2019 11:09:30
== END 2019-09-09 06:36 | disposition home or self-care (01) ==
LOC: ER 23:33
DX: R07.9 Chest pain, unspecified (principal); E11.65 Type 2 diabetes mellitus with hyperglycemia; R11.2 Nausea with vomiting, unspecified; I45.10 Unspecified right bundle-branch block; R53.1 Weakness; R00.0 Tachycardia, unspecified; I10 Essential (primary) hypertension; J44.9 Chronic obstructive pulmonary disease, unspecified; I25.10 Atherosclerotic heart disease of native coronary artery without angina pectoris; I25.2 Old myocardial infarction; F17.200 Nicotine dependence, unspecified, uncomplicated; Z86.718 Personal history of other venous thrombosis and embolism; Z79.899 Other long term (current) drug therapy; Z79.891 Long term (current) use of opiate analgesic; Z88.8 Allergy status to other drugs, medicaments and biological substances
CPT/HCPCS: 93005; 96374; 99284; 96361; 86900; 86901; 36415; 86850; 82962; 80307; 83690; 83735; 83930; 85025; 85610; 85730; 80053; 81001; 84484; 71275; 74174; 93010; A9270 ×3; J2405; J7030; J7120; J1815

== ENCOUNTER → 2019-09-10 | Outpatient (CLI) | payer MEDICARE, MEDICAID ==
--- NOTE | 2019-09-10 13:41 | RADIOLOGY REPORT (SQ) ---
EXAM DESCRIPTION: C SP 3 VWS OR LESS IMAGES COMPLETED DATE/TIME: 09/10/2019 12:53 pm REASON FOR STUDY: OTHER CERVICAL DISC DEGENERATION, UNSP CERVICAL REGION M50.30 OTHER CERVICAL DISC DEGENERATION, UNSP CERVICAL REGIO COMPARISON: None. NUMBER OF VIEWS: Three views. TECHNIQUE: AP, lateral and odontoid radiographic images acquired of the cervical spine. LIMITATIONS: None. FINDINGS: MINERALIZATION: Normal. ALIGNMENT: Normal. VERTEBRAE: Maintained height. No fracture or worrisome bone lesion. DISCS: Multilevel disc space narrowing with osteophytes. POSTERIOR ELEMENTS: Pedicles and facets are intact. No posterior arch defects. Facet arthropathy is present. FORAMINA: Narrowed at the levels of maximal disc and facet disease. HARDWARE: None in the spine. PARASPINAL SOFT TISSUES: Normal. OTHER: No other significant finding. IMPRESSION: SPONDYLOSIS WITHOUT BONE LESION OR FRACTURE. TECHNICAL DOCUMENTATION: JOB ID: [id number] 2010 [employer]- All Rights Reserved Reading location - IP/workstation name: [email or web address]
== END ==
LOC: OD 12:07
PROVIDERS: ATTEND Nurse Practitioner Primary Care
DX: M50.30 Other cervical disc degeneration, unspecified cervical region (principal); M47.892 Other spondylosis, cervical region
CPT/HCPCS: 72040

== ENCOUNTER 2020-04-01 19:06 | Emergency (ER) | payer MEDICARE, MEDICAID ==
[2020-04-01 20:03] LABS: ABSOLUTE BASOPHILS # (AUTO) 0.1 10^3/uL (0.0-0.2); ABSOLUTE EOSINOPHILS # (AUTO) 0.2 10^3/uL (0.0-0.6); ABSOLUTE MONOCYTES (AUTO) 0.6 10^3/uL (0.1-1.4); ABSOLUTE NEUT (AUTO) 4.2 10^3/uL (1.7-8.2); EOSINOPHILS % (AUTO) 2.5 % (0-6); HEMATOCRIT 35.1 % (37.9-51.0); HEMOGLOBIN 12.5 g/dL (13.5-17.0); LYMPHOCYTES % (AUTO) 28.5 % (13-45); MEAN CORPUSCULAR HEMOGLOBIN 30.6 pg (27.0-33.4); MEAN CORPUSCULAR HGB CONC 35.7 g/dL (32.0-36.0); MEAN CORPUSCULAR VOLUME 86 fl (80-97); MONOCYTES % (AUTO) 8.3 % (3-13); PLATELET COUNT 140 10^3/uL (150-450); RED CELL DISTRIBUTION WIDTH 13.4 % (11.5-14.0); SEGMENTED NEUTROPHILS % (AUTO) 59.7 % (42-78); TOTAL CELLS COUNTED % (AUTO) 100 %; WHITE BLOOD COUNT 7.1 10^3/uL (4.0-10.5)
--- NOTE | 2020-04-01 20:04 | RADIOLOGY REPORT (SQ) ---
EXAM DESCRIPTION: CHEST SINGLE VIEW IMAGES COMPLETED DATE/TIME: 04/01/2020 4:55 pm REASON FOR STUDY: cp COMPARISON: 08/19/2019 EXAM PARAMETERS: NUMBER OF VIEWS: One view. TECHNIQUE: Single frontal radiographic view of the chest acquired. RADIATION DOSE: NA LIMITATIONS: External leads partially obscure underlying structures. FINDINGS: LUNGS AND PLEURA: Linear opacities in the right lower lung may reflect atelectasis. No co nsolidation. No pleural effusion or pneumothorax 3 MEDIASTINUM AND HILAR STRUCTURES: No masses. Contour normal. HEART AND VASCULAR STRUCTURES: Heart normal in size. Normal vasculature. BONES: No acute findings. HARDWARE: None in the chest. OTHER: No other significant finding. IMPRESSION: Linear opacities in the right lower lung may reflect atelectasis. No other acute radiog raphic abnormality or significant interval change. TECHNICAL DOCUMENTATION: JOB ID: [id number] 2010 [employer]- All Rights Reserved Reading location - IP/workstation name: [email or web address]
[2020-04-01 20:05] LABS: INTERNATIONAL RATION (INR) 0.91; PROTHROMBIN TIME 12.5 SEC (11.4-15.4)
[2020-04-01 20:19] LABS: ALBUMIN 1.8 g/dL (3.5-5.0); ALKALINE PHOSPHATASE 36 U/L (38-126); ANION GAP 7 (5-19); ASPARTATE AMINO TRANSFERASE 16 U/L (17-59); BILIRUBIN,DIRECT 0.1 mg/dL (0.0-0.4); BILIRUBIN,TOTAL 0.5 mg/dL (0.2-1.3); BLOOD UREA NITROGEN 8 mg/dL (7-20); CARBON DIOXIDE 14 mmol/L (22-30); CHLORIDE 116 mmol/L (98-107); CREATINE KINASE 24 U/L (55-170); GLUCOSE 317 mg/dL (75-110); TOTAL PROTEIN 3.8 g/dL (6.3-8.2)
[2020-04-01 20:31] LABS: CREATINE KINASE MB 0.58 ng/mL (<4.55)
[2020-04-01 20:33] LABS: TROPONIN I < 0.012 ng/mL
[2020-04-01 20:35] LABS: CALCIUM 5.5 mg/dL (8.4-10.2)
[2020-04-01 20:36] LABS: POTASSIUM 2.8 mmol/L (3.6-5.0)
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
[2020-04-01] MEDS ORDERED: POTASSIUM CHLORIDE 20 MEQ PACKET PO ONE (21:16)
[2020-04-01] MEDS ORDERED: CALCIUM CARBONATE 500 MG TAB.CHEW PO ONE (21:16)
[2020-04-01] MEDS: CALCIUM GLUC IN NACL, ISO-OSM 1 GM/50 ML RTUPB IV SCH ×2 (21:28→22:22)
[2020-04-01] MEDS: POTASSI CL 20 MEQ/50 ML RIDER 20 MEQ/50 ML RTUPB IV SCH ×2 (21:34→23:21)
[2020-04-01] MEDS ORDERED: FAMOTIDINE INJ/PF 20 MG/2 ML SDV IV ONE (21:35)
[2020-04-01] MEDS ORDERED: KETOROLAC TROMETHAMINE INJ/PF 30 MG/1 ML SDV IV ONE (23:34)
[2020-04-02 01:17] LABS: VENOUS BLOOD BASE EXCESS -1.7 mmol/L; VENOUS BLOOD HCO3 24.3 mmol/L (20-32); VENOUS BLOOD PCO2 45.9 mmHg (35-63); VENOUS BLOOD PH 7.34 (7.30-7.42)
--- NOTE | 2020-04-02 01:46 | RADIOLOGY REPORT (SQ) ---
CT angiogram chest with contrast on 04/02/2020 at 12:50 AM CLINICAL INDICATION: Left-sided chest pain, question aortic dissection TECHNIQUE: Multiple axial images are obtained throughout the chest following the administration of IV contrast. Computer generated 3D reconstructions/MIPS were performed. This exam was performed according to our departmental dose-optimization program, which includes automated exposure control, adjustment of the mA and/or kV according to patient size and/or use of iterative reconstruction technique. Total DLP is 450.58 mGy*cm. COMPARISON: 09/09/2019 FINDINGS: There is no thoracic aortic aneurysm or dissection. The patient is status post cholecystectomy. Limited visualized upper abdomen is unremarkable. There is no pleural or pericardial effusion. There is no thoracic adenopathy. There is evidence of calcified granulomatous disease in the chest. There are no filling defects within the pulmonary arteries to suggest a pulmonary embolus. The lungs are otherwise clear. Degenerative changes are noted in the spine. No acute bony abnormality is noted. IMPRESSION: 1. No evidence of thoracic aortic aneurysm or dissection and no pulmonary embolus. 2. No acute abnormality.
[2020-04-02 02:09] VITALS: BP 148/91
--- NOTE | 2020-04-09 22:43 | EKG REPORT ---
SEVERITY:- ABNORMAL ECG - SINUS RHYTHM RIGHT BUNDLE BRANCH BLOCK PROBABLE LEFT VENTRICULAR HYPERTROPHY : Confirmed by: Deepak Fang 09-Apr-2020 22:42:38
== END 2020-04-02 02:31 | disposition home or self-care (01) ==
LOC: ER 19:06
DX: R07.89 Other chest pain (principal); E87.6 Hypokalemia; E83.51 Hypocalcemia; F17.200 Nicotine dependence, unspecified, uncomplicated; Z88.6 Allergy status to analgesic agent
CPT/HCPCS: 93005; 99285; 96375; 96365; 96366; 36415; 82553; 82550; 83690; 85025; 85610; 80053; 84484; 82803; 71045; 71275; 93010; J1885; J3480; S0028; A9270; J3490; J0610

== ENCOUNTER 2020-04-25 23:11 | Emergency (ER) | payer MEDICARE, MEDICAID ==
[2020-04-25 23:35] LABS: ABSOLUTE BASOPHILS # (AUTO) 0.1 10^3/uL (0.0-0.2); ABSOLUTE EOSINOPHILS # (AUTO) 0.1 10^3/uL (0.0-0.6); ABSOLUTE LYMPHOCYTES (AUTO) 2.3 10^3/uL (0.5-4.7); ABSOLUTE MONOCYTES (AUTO) 0.6 10^3/uL (0.1-1.4); ABSOLUTE NEUT (AUTO) 4.9 10^3/uL (1.7-8.2); BASOPHILS % (AUTO) 1.2 % (0-2); EOSINOPHILS % (AUTO) 1.6 % (0-6); HEMATOCRIT 41.8 % (37.9-51.0); HEMOGLOBIN 14.6 g/dL (13.5-17.0); LYMPHOCYTES % (AUTO) 28.2 % (13-45); MEAN CORPUSCULAR HEMOGLOBIN 30.1 pg (27.0-33.4); MEAN CORPUSCULAR HGB CONC 34.9 g/dL (32.0-36.0); MEAN CORPUSCULAR VOLUME 86 fl (80-97); MONOCYTES % (AUTO) 7.7 % (3-13); PLATELET COUNT 161 10^3/uL (150-450); RED BLOOD COUNT 4.85 10^6/uL (4.35-5.55); RED CELL DISTRIBUTION WIDTH 13.5 % (11.5-14.0); SEGMENTED NEUTROPHILS % (AUTO) 61.3 % (42-78); TOTAL CELLS COUNTED % (AUTO) 100 %
[2020-04-25] MEDS ORDERED: METOCLOPRAMIDE HCL INJ/PF 10 MG/2 ML SDV IV ONE (23:40)
[2020-04-25] MEDS ORDERED: FENTANYL CITRATE INJ/PF 100 MCG/2 ML AMPUL IV ONE (23:40)
[2020-04-25] MEDS ORDERED: DIPHENHYDRAMINE HCL 50 MG/ML VIAL IV ONE (23:40)
[2020-04-25 23:51] LABS: ALBUMIN 3.8 g/dL (3.5-5.0); ALKALINE PHOSPHATASE 65 U/L (38-126); ANION GAP 8 (5-19); ASPARTATE AMINO TRANSFERASE 21 U/L (17-59); BILIRUBIN,DIRECT 0.1 mg/dL (0.0-0.4); BILIRUBIN,TOTAL 0.7 mg/dL (0.2-1.3); BLOOD UREA NITROGEN 16 mg/dL (7-20); CALCIUM 9.3 mg/dL (8.4-10.2); CARBON DIOXIDE 26 mmol/L (22-30); CHLORIDE 97 mmol/L (98-107); CREATINE KINASE 35 U/L (55-170); GLUCOSE 370 mg/dL (75-110); POTASSIUM 4.2 mmol/L (3.6-5.0); TOTAL PROTEIN 6.6 g/dL (6.3-8.2)
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
[2020-04-26 00:03] LABS: CREATINE KINASE MB 0.58 ng/mL (<4.55)
[2020-04-26 00:06] LABS: TROPONIN I < 0.012 ng/mL
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
[2020-04-26] MEDS ORDERED: INSULIN REG, HUMAN 100 UNIT/ML 3 ML VIAL (PYX) IV ONE ×2 (01:23→01:53)
--- NOTE | 2020-04-26 01:40 | RADIOLOGY REPORT (SQ) ---
EXAM DESCRIPTION: X-RAY CHEST- One View CLINICAL HISTORY: Hypertension COMPARISON: CT of the chest April 02, 2020 TECHNIQUE: Single view of the chest. FINDINGS: There are overlying EKG leads. There are no new discrete air space infiltrates, pneumothoraces or pleural effusions. Calcified granuloma are noted in the left lung base. The pulmonary vascularity is normal. The cardiomediastinal silhouette is normal in size. Osseous structures are grossly stable given differences in technique. IMPRESSION: There are no acute lung parenchymal findings.
[2020-04-26] MEDS ORDERED: ACETAMINOPHEN 325 MG TABLET PO ONE (01:49)
[2020-04-26] MEDS ORDERED: ACETAMINOPHEN 325 MG TABLET ONE (01:50)
[2020-04-26 02:49] VITALS: BP 107/69
--- NOTE | 2020-04-26 09:23 | EKG REPORT ---
SEVERITY:- ABNORMAL ECG - SINUS TACHYCARDIA RIGHT BUNDLE BRANCH BLOCK PROBABLE LEFT VENTRICULAR HYPERTROPHY : Confirmed by: Vishal Clark MD 26-Apr-2020 09:21:58
== END 2020-04-26 02:58 | disposition home or self-care (01) ==
LOC: ER 23:11
DX: R51.9 Headache, unspecified (principal); E11.65 Type 2 diabetes mellitus with hyperglycemia; I45.10 Unspecified right bundle-branch block; R07.9 Chest pain, unspecified; G89.29 Other chronic pain; I10 Essential (primary) hypertension; I25.10 Atherosclerotic heart disease of native coronary artery without angina pectoris; I25.2 Old myocardial infarction; E11.9 Type 2 diabetes mellitus without complications; J44.9 Chronic obstructive pulmonary disease, unspecified; F17.210 Nicotine dependence, cigarettes, uncomplicated; Z88.8 Allergy status to other drugs, medicaments and biological substances; Z82.49 Family history of ischemic heart disease and other diseases of the circulatory system
CPT/HCPCS: 93005; 99285; 96374; 96375; 36415; 82553; 82962; 82550; 85025; 80053; 84484; 71045; 70450; 93010; A9270 ×2; J1200; J3010; J2765; J1815